=== PATIENT | male | born 1950 | race Caucasian/White ===

== ENCOUNTER → 2019-03-20 13:23 | Outpatient (BNVA) | payer MEDICARE, MEDICAID, SELFPAY | PROVIDERS: Family Provider Nurse Practitioner Family; PCP Nurse Practitioner Family; Visit Provider Specialist | DX: Z96.653 Presence of artificial knee joint, bilateral (principal); M17.0 Bilateral primary osteoarthritis of knee | CPT/HCPCS: 73560; 73565 ==

== ENCOUNTER → 2019-05-03 08:40 | Outpatient (BNVA) | payer MEDICARE, MEDICAID, SELFPAY | PROVIDERS: Family Provider Nurse Practitioner Family; PCP Nurse Practitioner Family; Visit Provider Nurse Practitioner Family | DX: E11.65 Type 2 diabetes mellitus with hyperglycemia (principal); M51.9 Unspecified thoracic, thoracolumbar and lumbosacral intervertebral disc disorder; G47.00 Insomnia, unspecified; E78.5 Hyperlipidemia, unspecified; I10 Essential (primary) hypertension; K21.9 Gastro-esophageal reflux disease without esophagitis | CPT/HCPCS: 80053; 80061; 82044; 83036; 85025 ==

== ENCOUNTER → 2019-08-08 16:04 | Outpatient (BNVA) | payer MEDICARE, MEDICAID, SELFPAY | PROVIDERS: Family Provider Nurse Practitioner Family; PCP Nurse Practitioner Family; Visit Provider Nurse Practitioner Family | DX: R50.9 Fever, unspecified (principal); L03.115 Cellulitis of right lower limb | CPT/HCPCS: 81000; 85025 ==

== ENCOUNTER 2019-09-06 10:33 | Outpatient (CLI) | payer MEDICARE, MEDICAID, SELFPAY ==
--- NOTE | 2019-09-06 10:40 | USCV_ITS ---
[place] Age: 69 Gender: M : 1950 Exam Date: 09/06/2019 10:36 Ordering Phys: Susanna Brock FLOOR NURSE FLOOR NURSE Technologist: Nahomy Martini Exam Location: [facility] [place] Indication: RT LEG REDNESS HISTORY: Cellulitis of rt lower leg PROCEDURES: Venous duplex imaging was performed in only the right lower extremity. The following venous structures were evaluated: common femoral vein, profunda vein, proximal portion of the greater saphenous vein, superficial femoral vein, and the popliteal vein. In addition, the posterior tibial and peroneal trunk were evaluated. Serial compression, augmentation maneuvers, and spectral Doppler flow evaluation were performed. FINDINGS: No DVT in any vessel examined CONCLUSIONS No evidence of right lower extremity DVT. Alejandro Mario MD (Electronically Signed) Final Date: 06 September 2019 13:35 S
== END 2019-09-06 10:34 | disposition home or self-care (01) ==
LOC: US 10:35
PROVIDERS: Family Provider Nurse Practitioner Family; PCP Nurse Practitioner Family; Visit Provider Nurse Practitioner Family
DX: L03.115 Cellulitis of right lower limb (principal)
CPT/HCPCS: 93971

== ENCOUNTER → 2019-10-08 08:00 | Outpatient (BNVA) | payer MEDICARE, MEDICAID, SELFPAY | PROVIDERS: Family Provider Nurse Practitioner Family; PCP Nurse Practitioner Family; Visit Provider Nurse Practitioner Family | DX: E11.65 Type 2 diabetes mellitus with hyperglycemia (principal); G47.00 Insomnia, unspecified; K21.9 Gastro-esophageal reflux disease without esophagitis; M51.9 Unspecified thoracic, thoracolumbar and lumbosacral intervertebral disc disorder; L03.115 Cellulitis of right lower limb; Z68.31 Body mass index [BMI] 31.0-31.9, adult | CPT/HCPCS: 80053; 80061; 83036; 85025 ==

== ENCOUNTER 2019-12-19 09:22 | Outpatient (CLI) | payer MEDICARE, MEDICAID, SELFPAY | END 2019-12-19 09:23 | disposition home or self-care (01) | LOC: WOUND 09:24 | PROVIDERS: Family Provider Nurse Practitioner Family; PCP Nurse Practitioner Family; Visit Provider Nurse Practitioner Family | DX: L84 Corns and callosities (principal) | CPT/HCPCS: G0463; L3260 ==

== ENCOUNTER 2019-12-19 12:37 | Outpatient (CLI) | payer MEDICARE, MEDICAID, SELFPAY ==
--- NOTE | 2019-12-19 12:45 | XR_ITS ---
WS: [id number] Exam: XR foot RT min 3V* [id number] Date/Time of Exam: 12/19/2019 12:46 PM Reason For Exam: PAIN REDNESS NONHEALING ULCER No fracture or dislocation. No sign of bone destruction. No soft tissue foreign bodies are seen. Mini mal degenerative changes. XR/XR foot RT min 3V* [id number] IMPRESSION: 1. No sign of the fracture or bone destruction.
== END 2019-12-19 12:38 | disposition home or self-care (01) ==
LOC: RADWPI 12:43
PROVIDERS: PCP Nurse Practitioner Family; Visit Provider Nurse Practitioner Family
DX: M79.671 Pain in right foot (principal); L53.9 Erythematous condition, unspecified; L97.519 Non-pressure chronic ulcer of other part of right foot with unspecified severity
CPT/HCPCS: 73630

== ENCOUNTER 2019-12-26 10:12 | Outpatient (CLI) | payer MEDICARE, MEDICAID, SELFPAY | END 2019-12-26 10:13 | disposition home or self-care (01) | LOC: WOUND 10:13 | PROVIDERS: PCP Nurse Practitioner Family; Visit Provider Nurse Practitioner Family | DX: Z09 Encounter for follow-up examination after completed treatment for conditions other than malignant neoplasm (principal) | CPT/HCPCS: 99212; G0463 ==

== ENCOUNTER → 2020-01-30 09:45 | Outpatient (BNVA) | payer MEDICARE, MEDICAID, SELFPAY | PROVIDERS: PCP Nurse Practitioner Family; Visit Provider Nurse Practitioner Family | DX: E11.65 Type 2 diabetes mellitus with hyperglycemia (principal) | CPT/HCPCS: 80053; 80061; 83036; 85025 ==

== ENCOUNTER → 2020-08-07 09:01 | Outpatient (BNVA) | payer MEDICARE, MEDICAID, SELFPAY | PROVIDERS: PCP Nurse Practitioner Family; Visit Provider Nurse Practitioner Family | DX: I10 Essential (primary) hypertension (principal); E11.65 Type 2 diabetes mellitus with hyperglycemia | CPT/HCPCS: 80053; 80061; 82043; 83036; 84443; 85025 ==

== ENCOUNTER → 2020-09-18 14:36 | Outpatient (BNVA) | payer MEDICARE, MEDICAID, SELFPAY | PROVIDERS: PCP Nurse Practitioner Family; Visit Provider Nurse Practitioner Family | DX: R30.0 Dysuria (principal); B37.42 Candidal balanitis; M51.9 Unspecified thoracic, thoracolumbar and lumbosacral intervertebral disc disorder | CPT/HCPCS: 81000 ==

== ENCOUNTER → 2020-10-06 16:39 | Outpatient (BNVA) | payer MEDICARE, MEDICAID, SELFPAY | PROVIDERS: PCP Nurse Practitioner Family; Visit Provider Nurse Practitioner Family | DX: R10.30 Lower abdominal pain, unspecified (principal); R35.0 Frequency of micturition; M51.9 Unspecified thoracic, thoracolumbar and lumbosacral intervertebral disc disorder | CPT/HCPCS: 81000; 82607; 85025; G0103 ==

== ENCOUNTER → 2020-11-16 09:20 | Outpatient (BNVA) | payer MEDICARE, MEDICAID, SELFPAY | PROVIDERS: PCP Nurse Practitioner Family; Visit Provider Internal Medicine | DX: D12.8 Benign neoplasm of rectum (principal); Z01.812 Encounter for preprocedural laboratory examination; Z12.11 Encounter for screening for malignant neoplasm of colon; Z20.822 Contact with and (suspected) exposure to COVID-19 | CPT/HCPCS: 87635 ==

== ENCOUNTER 2020-11-20 07:27 | Day surgery (SDC) | payer MEDICARE, MEDICAID, SELFPAY ==
[2020-11-16 14:28] VITALS: BMI 38.4
[2020-11-20 07:47] VITALS: BP 151/91; PULSE 90; RESP 18; TEMP 36.9; O2SAT 96
[2020-11-20] MEDS: sodium chloride 0.9% 1,000 ML 30 ML IV (08:00)
[2020-11-20 08:19] LABS: Glucose Point of Care 189 mg/dL (70-110)
--- NOTE | 2020-11-20 08:39 | ANES.PREANE2 ---
Pre-Anesthetic Assessment Pre-Anesthetic Assessment: Height/Weight: Height 1.75 m Weight 117.934 kg Temp Pulse Resp BP Pulse Ox 98.4 F 90 18 151/91 96 11/20/20 07:47 11/20/20 07:47 11/20/20 07:47 11/20/20 07:47 11/20/20 07:47 Preop Diagnosis: history of a polyp Proposed Procedure: Operation Date: 11/20/20 09:00 Proposed Procedures p Colonoscopy G0105 D12.8(Not Applicable) - Mp Garcia MD Familial anesthetic complications: none Was Beta Sammie taken within 24 hours: Yes Was Clonidine taken within 24 hours: N/A Last intake: Intake Last Liquid Date 11/19/20 Last Liquid Time 23:30 Last Solid Date 11/18/20 Last Solid Time 20:00 Social: Social History: No alcohol and No tobacco Exam: Pre-Anes Outpt Exam: alert, oriented x 3, clear to auscultation bilaterally and regular rate & rhythm Airway: Cervical ROM: WNL MP: 3 Dentition: False CV/HEM: CV/HEM: HTN Comments: US Echocardiogram 09/08/14 CONCLUSIONS 1-Normal left ventricular size, systolic function and wall thickness, with no regional wall motion abnormalities. Normal left ventricular wall thickness. Normal diastolic filling pattern. Left ventricular ejection fraction is estimated at 60 %. 2-No significant valve abnormalities. There is no pericardial effusion. 3-Mildly dilated aortic annulus. 4-There are no prior echocardiogram studies to compare. Vahe Knight MD (Electronically Signed) NM MIBI/MIBI Stress/Rest 09/08/14 CONCLUSION: 1. Myocardial perfusion imaging revealing a small area of persistent decreased tracer uptake in the mid and apical inferior and apical septal regions, suggestive of myocardial scarring versus attenuation artifacts. 2. Normal left ventricular ejection fraction of 53%. 3. Left ventricular wall motion analysis revealing mild hypokinesia of the left ventricular apex. 4. No significant coronary ischemia, based on the above findings. <Electronically signed by Gilbert Arreola MD, FACC, FACP, FSCAI> Request for Cardiac Stress Test 09/08/14 CONCLUSION: 1. Normal EKG response to LexiScan infusion 2. No LexiScan induced chest pain or cardiac arrhythmia 3. Normal blood pressure and heart rate response 4. Sestamibi/sestamibi perfusion scan pending; see separate report. Electronically Signed On 2014-09-08 21:05:23 CDT by Gilbert Arreola M.D. Metabolic: Metabolic: DM Musc/skel: Comments: Spinal cord stimulator Anesthetic Plan: ASA status: 3 Anesthesia: MAC Risk of > 500 ml blood loss (7ml/kg in children): No PFSH Anesthesia PFSH: Medical History (Updated 11/12/20 @ 10:11 by Mp Garcia MD) Carotid bruit Cervical radiculopathy Diabetes mellitus GERD (gastroesophageal reflux disease) HTN (hypertension) Insomnia Intervertebral disc disorder Macrocytosis Paresthesia Right thyroid nodule Sacroiliac joint disease Shortness of breath Sinus tachycardia Spinal cord stimulator status Varicose veins of both lower extremities Surgical History S/P carpal tunnel release S/P knee replacement Bilateral S/P lumbar fusion S/P shoulder surgery Status post amputation of toe Family History Other Cancer Diabetes Heart disease Social History Smoking and tobacco status: never smoked Second hand smoke exposure: Yes Alcohol intake: never Caregiver/support person: Yes Lives independently: Yes Household members: spouse Marital status: service: No Current occupational status: retired History of recent travel: No Current gender identity: Male Special kellee needs: No Data Anesthesia Other Labs: Laboratory Results - last 48 hr 11/20/20 08:01 POC Glucose 189 H Cardiac Studies: No Data to Display
--- NOTE | 2020-11-20 09:19 | W.PM.OPSFHP ---
Same Day Surgery H&P Indication for Procedure/HPI DATE OF PROCEDURE: November 20, 2020 CHIEF COMPLAINT/INDICATIONFOR SURGICAL PROCEDURE: History of rectal polyps PREOP DIAGNOSIS: history of a polyp PLANNED PROCEDRUE: Operation Date: 11/20/20 09:00 Proposed Procedures p Colonoscopy G0105 D12.8(Not Applicable) - Mp Garcia MD Medications/Allergies* Home Medications Medication Instructions Recorded Confirmed Type aspirin 81 mg tablet,delayed 81 mg PO DAILY tab 03/07/19 11/20/20 History release cetirizine 10 mg capsule 10 mg PO DAILY cap 03/07/19 11/20/20 History hydrocodone 7.5 mg-acetaminophen 1 tab PO TID PRN 03/07/19 11/20/20 History 325 mg tablet Allergies/Adverse Reactions Allergy/AdvReac Type Severity Reaction Status Date / Time oxycodone Allergy Unknown Unknown Verified 11/20/20 07:52 topiramate [From Topamax] Allergy Unknown Verified 11/20/20 07:52 Pertinent History/Comorbid Conditions* Medical History (Updated 11/12/20 @ 10:11 by Mp Garcia MD) Carotid bruit Cervical radiculopathy Diabetes mellitus GERD (gastroesophageal reflux disease) HTN (hypertension) Insomnia Intervertebral disc disorder Macrocytosis Paresthesia Right thyroid nodule Sacroiliac joint disease Shortness of breath Sinus tachycardia Spinal cord stimulator status Varicose veins of both lower extremities Surgical History (Updated 10/08/19 @ 12:36 by TRUNG Todd) S/P carpal tunnel release S/P knee replacement Bilateral S/P lumbar fusion S/P shoulder surgery Status post amputation of toe Family History (Updated 03/07/19 @ 11:47 by Precious Ramirez RN) Diabetes Heart disease Cancer Social History Smoking and tobacco status: never smoked Second hand smoke exposure: Yes Alcohol intake: never Caregiver/support person: Yes Lives independently: Yes Household members: spouse Marital status: service: No Current occupational status: retired History of recent travel: No Current gender identity: Male Special kellee needs: No Pertinent Exam Findings alert, oriented x 3, clear to auscultation bilaterally, regular rate & rhythm, operative site marked and procedure specific exam findings Recommendations Surgery/Procedure today Coding Level of Care Code Acute Consulting Utility Forester for Tal Vasquez
[2020-11-20 09:39] VITALS: BP 109/73; PULSE 84; RESP 16; TEMP 36.4; O2SAT 91
[2020-11-20 09:53] VITALS: BP 109/69; PULSE 80; RESP 18; O2SAT 96
--- NOTE | 2020-11-20 12:23 | ANE.PACU2 ---
Inpatient post-anesthesia follow up: Airway intact: Yes Vital signs: Temperature 97.5 F Pulse Rate 80 Respiratory Rate 18 Blood Pressure 109/69 Pulse Oximetry 96 Oxygen Delivery Me thod Room Air Oxygen Flow Rate Fraction of Inspir ed Oxygen Hydration adequate: Yes Nausea and vomiting: No Pain level: 1 Mental status: Baseline
== END 2020-11-20 10:02 | disposition home or self-care (01) ==
PROVIDERS: PCP Nurse Practitioner Family; Visit Provider Internal Medicine
PROC: 0DJD8ZZ Inspection of Lower Intestinal Tract, Via Natural or Artificial Opening Endoscopic (ICD-10-PCS; CPT 45378; principal; 2020-11-20 09:00)
DX: Z12.11 Encounter for screening for malignant neoplasm of colon (principal); Z86.010 Personal history of colon polyps; Z79.82 Long term (current) use of aspirin; E11.9 Type 2 diabetes mellitus without complications; K21.9 Gastro-esophageal reflux disease without esophagitis; I10 Essential (primary) hypertension; Z82.49 Family history of ischemic heart disease and other diseases of the circulatory system; Z83.3 Family history of diabetes mellitus
CPT/HCPCS: 36416; 45378; 82962; 96360; 96361; J2704; J7030

== ENCOUNTER 2020-12-05 19:32 | Inpatient (IN) | payer MEDICARE, MEDICAID, SELFPAY ==
[2020-12-05 19:49] VITALS: BP 126/80; PULSE 128; RESP 18; TEMP 38.2; O2SAT 94; BMI 38.0
--- NOTE | 2020-12-05 20:00 | USR_ITS ---
PROCEDURE INFORMATION: Exam: US Duplex Right Lower Extremity Veins, Limited Exam date and time: 12/05/2020 8:00 PM Age: 70 years old Clinical indication: Pain; Leg, lower; Right; Additional info: Dvt TECHNIQUE: Imaging protocol: Real-time Duplex ultrasound of the Right Lower Extremity with 2-D gutierrez scale, color Doppler flow and spectral waveform analysis with image documentation. Limited exam was focused on the right lower extremity veins. COMPARISON: CR XR foot RT min 3V* [id number] 12/19/2019 12:54 PM FINDINGS: Right deep veins: Unremarkable. The common femoral, femoral, proximal profunda femoral and popliteal veins are patent without thrombus. Normal Doppler waveforms. Normal compressibility and/or augmentation response. Right superficial veins: Unremarkable. Saphenofemoral junction is patent without thrombus. Soft tissues: Unremarkable. US/[place] [id number] IMPRESSION: No evidence of deep vein thrombosis. Radiation Dose CTDIVOL = (mGy): DLP = (mGy-cm)
--- NOTE | 2020-12-05 20:06 | ED_ITS ---
HPI - Extremity Problem General: Chief complaint: Extremity Injury, Lower Stated complaint: Cellulitus\ High Fever\Rash on R Leg\Achey Time Seen by Provider: 12/05/20 19:59 History of Present Illness: HPI Narrative: 70-year-old male history of diabetes presents due to right calf pain and swelling. This started 2 days ago. Denies any chest pain shortness of breath. Does report low-grade fever at home. Denies any focal numbness weakness or tingling. States he has had many similar episode of cellulitis in the past. Review of Systems Narrative: - CONSTITUTIONAL: Denies weight loss, fever and chills. - HEENT: Denies changes in vision and hearing. - RESPIRATORY: Denies SOB and cough. - CV: Denies palpitations and CP. - GI: Denies abdominal pain, nausea, vomiting and diarrhea. - : Denies dysuria and urinary frequency. - MSK: As above - SKIN: As above - NEUROLOGICAL: Denies headache, weakness, numbness and syncope. - PSYCHIATRIC: Denies suicidal ideation PFS ED PFSH: Medical History (Updated 11/12/20 @ 10:11 by Mp Garcia MD) Carotid bruit Cervical radiculopathy Diabetes mellitus GERD (gastroesophageal reflux disease) HTN (hypertension) Insomnia Intervertebral disc disorder Macrocytosis Paresthesia Right thyroid nodule Sacroiliac joint disease Shortness of breath Sinus tachycardia Spinal cord stimulator status Varicose veins of both lower extremities Surgical History S/P carpal tunnel release S/P knee replacement Bilateral S/P lumbar fusion S/P shoulder surgery Status post amputation of toe Family History Other Cancer Diabetes Heart disease Social History Smoking and tobacco status: never smoked Second hand smoke exposure: Yes Alcohol intake: never Caregiver/support person: Yes Lives independently: Yes Household members: spouse Marital status: service: No Current occupational status: retired History of recent travel: No Current gender identity: Male Special kellee needs: No Physical Exam Narrative: EXAM NARRATIVE: - GENERAL: Alert and oriented x 3. No acute distress. Well-nourished. - EYES: EOMI. Anicteric. - HENT: Atraumatic, no C-spine tenderness. Moist mucous membranes. No scleral icterus. No cervical lymphadenopathy. - LUNGS: Clear to auscultation bilaterally. No accessory muscle use. Equal lung sounds bilaterally. No respiratory distress. - CARDIOVASCULAR: Regular rate and rhythm. No murmur. No JVD. - ABDOMEN: Soft, non-tender and non-distended. Negative CVA tenderness bilaterally, no rebound or guarding, negative Inman sign. No palpable masses. - EXTREMITIES: There is an area of erythema edema and tenderness to the right calf. Extremities otherwise neurovascularly intact. Compartments are soft. No crepitus or signs of free gas. - SKIN: Focal rash to the right calf. - NEUROLOGIC: No meningismus or focal neurological deficits. CN II-XII grossly intact. - PSYCHIATRIC: Cooperative. Appropriate mood and affect. Course Vital Signs: Vital signs: Vital Signs Temperature 100.7 F H 12/05/20 19:49 Pulse Rate 128 H 12/05/20 19:49 Respiratory Rate 18 12/05/20 19:49 Blood Pressure 126/80 12/05/20 19:49 Pulse Oximetry 94 12/05/20 19:49 MDM - Extremity (Nontraumatic) MDM Narrative: Medical decision making narrative: 70-year-old male history of diabetes presents with right calf pain and swelling. On exam does have erythema and edema. No signs of crepitus free air or necrotizing fasciitis. Ultrasound does not reveal signs of DVT. However he is tachycardic and febrile. Improved Tylenol and fluids. Otherwise he is hemodynamically stable and nontoxic- appearing. Blood cultures drawn. Lactic acid is currently pending. There is white count elevation of 13. Remainder of lab work is otherwise unremarkable. IV Rocephin provided. Concern for cellulitis. Remainder of lab work and imaging reviewed. Discussed with hospitalist and they agreed patient would benefit from admission. Patient admitted in stable condition. Further evaluation management per hospitalist team. Lab Data: Labs: Lab Results 12/05/20 12/05/20 12/05/20 21:10 21:10 21:10 WBC 13.2 10^3/uL H 10 ^3/uL (4.0-10.0) RBC 4.92 10^6/uL 10^6 /uL (4.1-5.3) Hgb 15.1 g/dL g/dL (11.7-16.6) Hct 43.7 % % (42.0-52.0) MCV 88.8 fl fl (80-94) MCH 30.7 pg pg (28.0-34.0) MCHC 34.6 g/dL g/dL (30.0-36.0) RDW 13.6 % % (12.1-15.1) Plt Count 205 10^3/cmm 10^3 /cmm (130-400) MPV 10.2 fL fL (7.4-10.4) Neut % (Auto) 84.5 % % Lymph % (Auto) 9.3 % % White % (Auto) 5.0 % % Eos % (Auto) 0.3 % % Baso % (Auto) 0.5 % % Neut # (Auto) 11.20 10^3/uL H 1 0^3/uL (1.8-7.7) Lymph # (Auto) 1.2 10^3/uL 10^3/ uL (0.8-4.8) White # (Auto) 0.7 10^3/uL 10^3/ uL (0.2-0.9) Eos # (Auto) 0.0 10^3/uL 10^3/ uL (0.0-0.8) Baso # (Auto) 0.1 10^3/uL 10^3/ uL (0.0-0.1) Nucleated RBC % (a uto) 0 % % Nucleated RBCs # 0.0 /100WBC /100W BC Sodium 134 mmol/L L mmol /L (136-145) Potassium 4.1 mmol/L mmol/L (3.5-5.1) Chloride 97 mmol/L L mmol/ L (98-107) Carbon Dioxide 24 mmol/L mmol/L (22-29) Anion Gap 17.1 (5-19) BUN 14 mg/dL mg/dL (8-23) Creatinine 0.8 mg/dL mg/dL (0.7-1.2) GFR Calculation Not Reportable Glucose 165 mg/dL H mg/dL (65-115) Calculated Osmolal ity 282 mOsm/kg L mOs m/kg (285-295) Lactate 1.7 mmol/L mmol/L (0.5-2.2) Calcium 9.7 mg/dL mg/dL (8.5-10.5) Total Bilirubin 0.6 mg/dL mg/dL (0.15-1.2) AST 34 U/L U/L (0-40) ALT 55 U/L H U/L (0-41) Alkaline Phosphata se 101 IU/L IU/L (40-130) Total Protein 7.2 g/dL g/dL (6.6-8.7) Albumin 4.2 g/dL g/dL (3.5-5.2) Globulin 3.0 g/dL g/dL (1.3-4.6) Discharge Plan Discharge Prescriptions: No Action lidocaine (PF) 20 mg/mL (2 %) solution 20 mg IM ONCE Qty: 2.1 RF: 0 baclofen 20 mg tablet See Rx Instructions .ROUTE .COMPLEX Qty: 90 RF: 2 clotrimazole [Antifungal (clotrimazole)] 1 % cream 1 applic TOPICAL BID Qty: 15 RF: 0 hydrocodone-acetaminophen 7.5-325 mg tablet 1 tab PO TID PRN (Reason: Pain) RF: 0 cetirizine 10 mg capsule 10 mg PO DAILY RF: 0 aspirin [Adult Low Dose Aspirin] 81 mg tablet,delayed release (DR/EC) 81 mg PO DAILY RF: 0 fluticasone propionate 50 mcg/actuation spray,suspension See Rx Instructions .ROUTE BID Qty: 16 RF: 12 Farxiga 10 mg tablet See Rx Instructions .ROUTE .COMPLEX Qty: 30 RF: 5 tamsulosin 0.4 mg capsule 0.4 mg PO DAILY Qty: 30 RF: 5 metoprolol succinate 25 mg tablet extended release 24 hr 12.5 mg PO DAILY Qty: 45 RF: 3 Victoza 3-Sincere 0.6 mg/0.1 mL (18 mg/3 mL) pen injector See Rx Instructions .ROUTE .COMPLEX Qty: 9 RF: 5 duloxetine 60 mg capsule,delayed release(DR/EC) See Rx Instructions .ROUTE .COMPLEX Qty: 60 RF: 4 Levemir FlexTouch U-100 Insuln 100 unit/mL (3 mL) insulin pen See Rx Instructions .ROUTE .COMPLEX Qty: 15 RF: 2 gabapentin 600 mg tablet See Rx Instructions .ROUTE .COMPLEX Qty: 120 RF: 4 famotidine 20 mg tablet See Rx Instructions .ROUTE .COMPLEX Qty: 30 RF: 5 nortriptyline 25 mg capsule See Rx Instructions .ROUTE .COMPLEX Qty: 60 RF: 2 diclofenac sodium 50 mg tablet,delayed release (DR/EC) See Rx Instructions .ROUTE .COMPLEX Qty: 60 RF: 5 metformin 500 mg tablet extended release 24 hr See Rx Instructions .ROUTE .COMPLEX Qty: 120 RF: 2 Coding Level of Care Code ED Corn Sheller Operator for Tal Vasquez
[2020-12-05 21:18] LABS: Basophils # 0.1 10^3/uL (0.0-0.1); Basophils % 0.5 %; Eosinophils % 0.3 %; Hematocrit 43.7 % (42.0-52.0); Hemoglobin 15.1 g/dL (11.7-16.6); Lymphocytes # 1.2 10^3/uL (0.8-4.8); Lymphocytes % 9.3 %; Mean Corpuscular HGB Conc 34.6 g/dL (30.0-36.0); Mean Corpuscular Hemoglobin 30.7 pg (28.0-34.0); Mean Corpuscular Volume 88.8 fl (80-94); Mean Platelet Volume 10.2 fL (7.4-10.4); Monocytes # 0.7 10^3/uL (0.2-0.9); Neutrophils % 84.5 %; Nucleated Red Blood Cells % 0 %; Platelet Count 205 10^3/cmm (130-400); Red Blood Count 4.92 10^6/uL (4.1-5.3); Red Cell Distribution Width 13.6 % (12.1-15.1); White Blood Count 13.2 10^3/uL (4.0-10.0)
[2020-12-05] MEDS: acetaminophen 500 mg Tablet PO (21:23)
[2020-12-05] MEDS: sodium chloride 0.9% 1,000 ML 999 ML IV (21:23)
[2020-12-05] MEDS: cefTRIAXone 2,000 MG in sodium chloride 0.9% (plus) 50 ML 100 MG IV (21:23)
[2020-12-05 21:25] VITALS: BP 123/96; PULSE 84; RESP 20; O2SAT 96
[2020-12-05 21:30] VITALS: BP 117/68; PULSE 103; RESP 17; TEMP 37.4; O2SAT 93; BMI 39.7
[2020-12-05 21:39] LABS: Lactate (Lactic Acid level) 1.7 mmol/L (0.5-2.2)
[2020-12-05 21:40] LABS: Alanine Aminotransferase 55 U/L (0-41); Albumin Level 4.2 g/dL (3.5-5.2); Alkaline Phosphatase 101 IU/L (40-130); Anion Gap 17.1 (5-19); Aspartate Amino Transferase 34 U/L (0-40); Blood Urea Nitrogen 14 mg/dL (8-23); Calcium 9.7 mg/dL (8.5-10.5); Carbon Dioxide 24 mmol/L (22-29); Chloride 97 mmol/L (98-107); Glucose 165 mg/dL (65-115); Osmolality Calculated 282 mOsm/kg (285-295); Potassium 4.1 mmol/L (3.5-5.1); Sodium 134 mmol/L (136-145); Total Bilirubin 0.6 mg/dL (0.15-1.2); Total Protein 7.2 g/dL (6.6-8.7)
--- NOTE | 2020-12-05 23:28 | P.HP_ITS ---
Providers/Chief Complaint Admitting Physician: Alicja Tripp Chief Complaint: Cellulitus\ High Fever\Rash on R Leg\Achey History of Present Illness 70 y/o with past medical history hypertension, diabetes mellitus, gastroesophageal reflux disease, spinal cord stimulator, insomnia, who presented to ED with right lower extremity cellulitis. Patient was tx for this 2-month prior at which time this improved after tx with antibiotics. Recurred a few days prior. Associated with subjective fever and chills. Laboratory workup on arrival showed a WBC of 13.2, hemoglobin 15.1, hematocrit of 43.7 and platelet count 205. Sodium 134, potassium 4.1, chloride 97, bicarb 24, BUN 14 and creatinine of 0.8. Glucose of 165, lactic acid of 1.7. AST of 34, ALT of 55 and alkaline phosphatase of 101. Venous duplex of right lower extremity did not show any evidence of acute DVT. Denies chest pain or shortness of breath. Denied abdominal pain, diarrhea, or constipation. Patient was given Rocephin 2 g IV x1 admitted to the hospital. Review of Systems General: Reports: 10 or more systems reviewed and unremarkable except in HPI and below Medications/Allergies Home Medications Medication Instructions Recorded Confirmed Last Taken Type aspirin 81 mg tablet,delayed 81 mg PO DAILY tab 03/07/19 12/06/20 12/06/20 History release cetirizine 10 mg capsule 10 mg PO DAILY cap 03/07/19 12/06/20 12/05/20 History hydrocodone 7.5 mg-acetaminophen 1 tab PO TID PRN 03/07/19 12/06/20 1 Day Ago History 325 mg tablet ~11/19/20 metoprolol succinate 25 mg 12.5 mg PO DAILY #45 tab 05/06/20 12/06/20 12/05/20 Rx tablet,extended release 24 hr liraglutide 0.6 mg/0.1 mL (18 mg/3 See Rx Instructions .ROUTE 08/04/20 12/06/20 1 Day Ago Rx mL) subcutaneous pen injector .COMPLEX #9 ml ~11/19/20 clotrimazole 1 % topical cream 1 applic TOPICAL BID #15 gm 09/18/20 11/16/20 Unknown Rx famotidine 20 mg tablet See Rx Instructions .ROUTE 09/21/20 11/16/20 Unknown Rx .COMPLEX #30 tab diclofenac sodium 50 mg See Rx Instructions .ROUTE 10/05/20 12/06/20 12/05/20 Rx tablet,delayed release .COMPLEX #60 tab fluticasone propionate 50 See Rx Instructions .ROUTE BID #16 10/06/20 12/06/20 Unknown Rx mcg/actuation nasal g spray,suspension dapagliflozin 10 mg tablet See Rx Instructions .ROUTE 10/19/20 12/06/20 12/05/20 Rx .COMPLEX #30 tab tamsulosin 0.4 mg capsule 0.4 mg PO DAILY #30 cap 10/19/20 11/20/20 1 Day Ago Rx ~11/19/20 Levemir FlexTouch U-100 Insuln 15 unit SUBCUT BEDTIME 12/06/20 12/06/20 12/05/20 History baclofen 10 mg PO TID 12/06/20 12/06/20 12/05/20 History clindamycin HCl 12/06/20 12/06/20 Unknown History duloxetine 60 mg PO BID 12/06/20 12/06/20 12/05/20 History gabapentin 600 mg PO QID 12/06/20 12/06/20 12/05/20 History metformin 1,000 mg PO BID 12/06/20 12/06/20 12/05/20 History nortriptyline 25 mg PO BID 12/06/20 12/06/20 12/05/20 History Allergies Allergy/AdvReac Type Severity Reaction Status Date / Time oxycodone Allergy Unknown Unknown Verified 11/20/20 07:52 topiramate [From Topamax] Allergy Unknown Verified 11/20/20 07:52 PFSH Acute PFSH: Medical History (Updated 11/12/20 @ 10:11 by Mp Garcia MD) Carotid bruit Cervical radiculopathy Diabetes mellitus GERD (gastroesophageal reflux disease) HTN (hypertension) Insomnia Intervertebral disc disorder Macrocytosis Paresthesia Right thyroid nodule Sacroiliac joint disease Shortness of breath Sinus tachycardia Spinal cord stimulator status Varicose veins of both lower extremities Surgical History S/P carpal tunnel release S/P knee replacement Bilateral S/P lumbar fusion S/P shoulder surgery Status post amputation of toe Family History Other Cancer Diabetes Heart disease Social History Smoking and tobacco status: never smoked Second hand smoke exposure: Yes Alcohol intake: never Caregiver/support person: Yes Lives independently: Yes Household members: spouse Marital status: service: No Current occupational status: retired History of recent travel: No Current gender identity: Male Special kellee needs: No Vitals/I&O/Wt Last Vital Signs Temp 99.4 F 12/06/20 00:40 Pulse 103 H 12/06/20 00:40 Resp 17 12/06/20 00:40 BP 117/68 12/06/20 00:40 Pulse Ox 93 12/06/20 00:40 12/05/20 12/05/20 12/06/20 14:59 22:59 06:59 Intake Total 1050 / 1050 Balance 1050 / 1050 Weight last 48 hrs Weight 125.781 kg Weight 125.781 kg Weight 120.202 kg Physical Exam Narrative: EXAM NARRATIVE: General: Alert, Awake, NAD HEENT: Grossly unremarkable CVS: RRR Chest; Non labored respiration Abd; Soft Ext: Right Lower extremity erythema Data : 12/05/20 21:10 12/05/20 21:10 Micro: Microbiology 12/06/20 01:20 Blood Culture - Preliminary Blood SPECIMEN COLLECTED 12/06/20 01:25 Blood Culture - Preliminary Blood SPECIMEN COLLECTED A&P Assessment and plan (1) Cellulitis of right lower extremity: Status: Resolved Additional A&P Information Right lower extremity cellulitis Continue ceftriaxone 2 g IV Q 24 Follow-up on blood cultures Keep Elevated Venous duplex ? no dvt Additional Medical Problems Diabetes Mellitus Neuropathy Hypertension Depression GERD BPH DVT ppx Lovenox 40 mg SQ daily Attestations Medical Necessity Statement*: Anticipate over 2 midnights stay in hospital for evaluation and treatment Time Spent in Patient Care: Greater than 35 minutes (>than 50% of time spent in counselling and/or direct pt care on unit) . Coding Level of Care Code Acute Poultry Hatchery Supervisor for Tal Vasquez Diagnoses Cellulitis of right lower extremity L03.115
[2020-12-05 23:29] VITALS: BP 131/78; O2SAT 95
--- NOTE | 2020-12-06 00:38 | PC.NURSE ---
i reported high pulse 103 to nurse
[2020-12-06 00:40] VITALS: BP 117/68; PULSE 103; RESP 17; TEMP 37.4; O2SAT 93
--- NOTE | 2020-12-06 00:41 | PC.NURSE ---
i reported high pulse 103 to nurse
[2020-12-06 00:42] VITALS: BMI 39.7
[2020-12-06 04:00] VITALS: BP 128/72; PULSE 89; RESP 18; TEMP 36.7; O2SAT 90
[2020-12-06] MEDS: enoxaparin 40 mg/0.4 mL Syringe SUBCUT (04:55)
[2020-12-06] MEDS: sodium chloride 0.9% 1,000 ML 75 ML IV (04:56)
[2020-12-06 07:33] VITALS: BP 143/83; PULSE 90; RESP 16; TEMP 36.6; O2SAT 93
[2020-12-06] MEDS: baclofen 10 mg Tablet PO (08:02)
[2020-12-06] MEDS: duloxetine 60 mg Capsule PO (08:02)
[2020-12-06] MEDS: nortriptyline 25 mg Capsule PO (08:02)
[2020-12-06] MEDS: aspirin 81 mg EC Tablet PO (08:02)
[2020-12-06] MEDS: pantoprazole DR 40 mg Tablet PO (08:02)
--- NOTE | 2020-12-06 08:18 | PM.PN ---
Vitals/I&O/Wt Last Vital Signs Temp 97.8 F 12/06/20 07:33 Pulse 90 12/06/20 07:33 Resp 16 12/06/20 07:33 BP 143/83 12/06/20 07:33 Pulse Ox 93 12/06/20 07:33 12/05/20 12/06/20 12/06/20 22:59 06:59 14:59 Intake Total 1250 / 1250 Output Total 180 / 180 Balance 1070 / 1070 Weight last 48 hrs Weight 125.781 kg Weight 125.781 kg Weight 120.202 kg Data : 12/05/20 21:10 12/05/20 21:10 Micro: Microbiology 12/06/20 01:20 Blood Culture - Preliminary Blood SPECIMEN COLLECTED 12/06/20 01:25 Blood Culture - Preliminary Blood SPECIMEN COLLECTED Coding Level of Care Code Acute Director Dietetics Department for Tal Vasquez
--- NOTE | 2020-12-06 10:47 | PC.CHAP ---
Pastoral Care Encounter/Spiritual Assessment Type of Contact [] Declined heating and air conditioning mechanic visit [] Patient/Family/Request visit [] Outpatient visit [] Follow-up visit [] Physician referral [] Code/Alert [X] Routine visit [] Staff referral [] Actively dying [] Patient sleeping [] Family support [] [] Out of room [] Palliative care [] [] Receiving care in room [] Pre-surgical visit [] Trauma [] Long length of stay [] ICU visit [] Other: Relational/Emotional Strength [X] Patient feels connected with others/family/visitors/staff [] Distress [] Loneliness/isolation [] Abandonment Spirituality of Patient [] Person of Daniela [] Attends Latter Day of their Daniela [] Believes in Prayer [] Reads Bible or Zoroastrianism materials [] There are Spiritual issues to be addressed Parker Interventions [] Prayer [X] Active listening [X] Non-anxious presence [] Spiritual/emotional support [] Crisis/trauma care [] Spiritual counseling [] Bereavement support [] Provided bereavement packet [] Provided Bible/devotional materials [] Provided toy/stuffed animal, coloring book to patient or family member [] Provided Communion [] Anointing/[place] [] Salvation [X] Completed spiritual assessment [] Other: Impact on Illness or Injury [] Angry [] Fearful [] Anxious [] Often cries [] Exhaustion [] Unable to work [] Unable to attend islam [] Unable to walk/stand [] Unable to read [] Unable to drive [] Unable to eat/drink [] Unable to sleep [] Unable to be with family [] Patient intubated [] Other: Summary: Pt in good humor sitting on edge of his bed. Pt stated that he is going home today and that he just needed the antibiotics. He reports good support system. Pt declined any offerings for prayer or reading material. Time spent with patient: 5 mins
[2020-12-06 11:28] VITALS: BP 128/71; PULSE 92; RESP 18; TEMP 36.7; O2SAT 96
--- NOTE | 2020-12-06 12:54 | PM.DCS ---
Discharge Providers Date of Admission: 12/05/20 21:54 Date of Discharge: December 06, 2020 Attending Provider at Admission: Alicja Tripp Attending Provider at Discharge: Arina Vergara MD Diagnoses at Discharge Discharge Diagnosis (1) Cellulitis of right lower extremity: Status: Resolved Reason for Visit Reason for Visit: Cellulitus\ High Fever\Rash on R Leg\[place] Hospital Course Hospital Course 70 y/o with past medical history hypertension, diabetes mellitus, gastroesophageal reflux disease, spinal cord stimulator, insomnia, who presented to ED with right lower extremity cellulitis. Patient was tx for this 2-month prior at which time this improved after tx with antibiotics. Recurred a few days prior. Associated with subjective fever and chills. Laboratory workup on arrival showed a WBC of 13.2, hemoglobin 15.1, hematocrit of 43.7 and platelet count 205. Sodium 134, potassium 4.1, chloride 97, bicarb 24, BUN 14 and creatinine of 0.8. Glucose of 165, lactic acid of 1.7. AST of 34, ALT of 55 and alkaline phosphatase of 101. Venous duplex of right lower extremity did not show any evidence of acute DVT. Denies chest pain or shortness of breath. Denied abdominal pain, diarrhea, or constipation. Patient was given Rocephin 2 g IV x1 admitted to the hospital. Hospital course Patient was admitted for right lower extremity cellulitis. The redness has decreased compared to admission. He did get 1 dose of ceftriaxone 2 g IV. Blood cultures have been negative preliminary. Lower extremity Doppler rule out DVT. Patient states he has had this before and outpatient antibiotics were okay for him. He has requested me repeatedly this morning that he would like to go home. There is no drainage noted and it is a nonpurulent cellulitis of right lower extremity. Patient does have a small peeling callus on the sole of his foot which he states could be contributing to his cellulitis. The foot however is not erythematous or swollen. He has been afebrile since hospital admission. He would like to go home and follow-up with his primary care doctor. His vitals are stable. I will discharge him on Augmentin and doxycycline for 7 days. Physical Exam Narrative: EXAM NARRATIVE: General: Alert, Awake, NAD HEENT: Grossly unremarkable, normocephalic, atraumatic CVS: RRR, no murmurs no rubs no gallops Chest; Non labored respiration, clear to auscultation bilaterally, no wheezes no rhonchi. Abd; Soft, nontender, nondistended Ext: Right Lower extremity erythema which patient states has improved since admission. No edema no cyanosis noted. Small peeling callus noted at sole of right foot by big toe but does not appear to be infected at this time. Discharge Data Data Completed and Pending: Completed Studies During Hospitalization Category [place] [id number] Urgent Ultrasound 12/05/20 20:00 Completed Pending at discharge Category Date Time Status Blood Culture Sta t Lab 12/05/20 20:05 Results Complete Blood Co unt w/Auto AM LABS Lab 12/07/20 04:00 Ordered Comprehensive Met abolic Panel AM LA BS Lab 12/07/20 04:00 Ordered Procalcitonin AM LABS Lab 12/07/20 04:00 Ordered Labs from last 24 hours 12/05/20 12/05/20 12/05/20 21:10 21:10 21:10 WBC 13.2 H RBC 4.92 Hgb 15.1 Hct 43.7 MCV 88.8 MCH 30.7 MCHC 34.6 RDW 13.6 Plt Count 205 MPV 10.2 Neut % (Auto) 84.5 Lymph % (Auto) 9.3 [place] % (Auto) 5.0 Eos % (Auto) 0.3 Baso % (Auto) 0.5 Neut # (Auto) 11.20 H Lymph # (Auto) 1.2 [place] # (Auto) 0.7 Eos # (Auto) 0.0 Baso # (Auto) 0.1 Nucleated RBC % (a uto) 0 Nucleated RBCs # 0.0 Sodium 134 L Potassium 4.1 Chloride 97 L Carbon Dioxide 24 Anion Gap 17.1 BUN 14 Creatinine 0.8 GFR Calculation Not Reportable Glucose 165 H Calculated Osmolal ity 282 L Lactate 1.7 Calcium 9.7 Total Bilirubin 0.6 AST 34 ALT 55 H Alkaline Phosphata se 101 Total Protein 7.2 Albumin 4.2 Globulin 3.0 Vitals: Last Vital Signs Temp 98.1 F 12/06/20 11:28 Pulse 92 12/06/20 11:28 Resp 18 12/06/20 11:28 BP 128/71 12/06/20 11:28 Pulse Ox 96 12/06/20 11:28 Discharge Plan Discharge Patient Disposition: Home Condition: Stable Prescriptions: New Augmentin 875-125 mg tablet 1 tab PO BID 7 Days Qty: 14 RF: 0 doxycycline hyclate 100 mg capsule 100 mg PO BID 7 Days Qty: 14 RF: 0 Continued clotrimazole [Antifungal (clotrimazole)] 1 % cream 1 applic TOPICAL BID Qty: 15 RF: 0 hydrocodone-acetaminophen 7.5-325 mg tablet 1 tab PO TID PRN (Reason: Pain) RF: 0 cetirizine 10 mg capsule 10 mg PO DAILY RF: 0 aspirin [Adult Low Dose Aspirin] 81 mg tablet,delayed release (DR/EC) 81 mg PO DAILY RF: 0 fluticasone propionate 50 mcg/actuation spray,suspension See Rx Instructions .ROUTE BID Qty: 16 RF: 12 Farxiga 10 mg tablet See Rx Instructions .ROUTE .COMPLEX Qty: 30 RF: 5 metoprolol succinate 25 mg tablet extended release 24 hr 12.5 mg PO DAILY Qty: 45 RF: 3 Victoza 3-Sincere 0.6 mg/0.1 mL (18 mg/3 mL) pen injector See Rx Instructions .ROUTE .COMPLEX Qty: 9 RF: 5 diclofenac sodium 50 mg tablet,delayed release (DR/EC) See Rx Instructions .ROUTE .COMPLEX Qty: 60 RF: 5 gabapentin 600 mg tablet 600 mg PO QID RF: 0 baclofen 20 mg tablet 10 mg PO TID RF: 0 nortriptyline 25 mg capsule 25 mg PO BID RF: 0 metformin 500 mg tablet extended release 24 hr 1,000 mg PO BID RF: 0 duloxetine 60 mg capsule,delayed release(DR/EC) 60 mg PO BID RF: 0 Levemir FlexTouch U-100 Insuln 100 unit/mL (3 mL) insulin pen 15 unit SUBCUT BEDTIME RF: 0 famotidine 20 mg tablet 20 mg PO DAILY RF: 0 tamsulosin 0.4 mg capsule 0.4 mg PO BID MDD see pharmacy comment RF: 0 Discharge Orders: Discharge Order (Routine); Ordered 12/06/20 Ordered By: Arina Vergara Referrals: Susanna Brock FNP [Nurse Practitioner] - 7-10 days (Please call and schedule an appointment with Susanna Brock in the next week. ) Discharge Diet: Cardiac and Diabetic Discharge Activity: Resume usual activity Patient Instructions: Opioid Safety Discharge Attestations Time Spent in Discharge Care*: less than 30 min Quality Metrics Clinical Quality Measures During this hospital stay, did patient experience: None Coding Level of Care Code Acute Chg FW DC note Diagnoses Cellulitis of right lower extremity L03.115
--- NOTE | 2020-12-06 14:13 | PC.NURSE ---
DISCHARGE INSTRUCTIONS DISCHARGE INSTRUCTIONS WELL HARD SCRIPT GIVEN PER THIS NURSE - PT VERBALIZES UNDERSTANDING
[2020-12-06 14:27] VITALS: BP 128/71; PULSE 92; RESP 18; TEMP 36.7; O2SAT 96
== END 2020-12-06 14:28 | disposition home or self-care (01) | DRG 603 ==
LOC: ER 19:59 → MEDSURG 22:10
PROVIDERS: Admitting Provider Hospitalist; Emergency Provider Emergency Medicine; Visit Provider Internal Medicine
DX: L03.115 Cellulitis of right lower limb (principal); E11.42 Type 2 diabetes mellitus with diabetic polyneuropathy; K21.9 Gastro-esophageal reflux disease without esophagitis; I10 Essential (primary) hypertension; G47.00 Insomnia, unspecified; M54.12 Radiculopathy, cervical region; Z96.82 Presence of neurostimulator; Z96.653 Presence of artificial knee joint, bilateral; Z98.1 Arthrodesis status; Z77.22 Contact with and (suspected) exposure to environmental tobacco smoke (acute) (chronic); N40.0 Benign prostatic hyperplasia without lower urinary tract symptoms; Z79.891 Long term (current) use of opiate analgesic; Z79.82 Long term (current) use of aspirin; Z79.4 Long term (current) use of insulin
CPT/HCPCS: 80053; 83605; 85025; 87040; 93971; 96365; 96372; 99285; J0696; J1650; J7030

== ENCOUNTER → 2021-02-05 10:44 | Outpatient (BNVA) | payer MEDICARE, MEDICAID, SELFPAY | PROVIDERS: PCP Nurse Practitioner Family; Visit Provider Nurse Practitioner Family | DX: E11.65 Type 2 diabetes mellitus with hyperglycemia (principal); I10 Essential (primary) hypertension | CPT/HCPCS: 80053; 80061; 83036; 85025 ==

== ENCOUNTER 2021-04-15 18:29 | Emergency (ER) | payer MEDICARE, MEDICAID, SELFPAY ==
[2021-04-15 18:43] VITALS: BP 101/61; PULSE 83; RESP 20; TEMP 36.8; O2SAT 97; BMI 37.3
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
[2021-04-15 20:33] VITALS: BP 96/61; PULSE 109; RESP 18; O2SAT 94
[2021-04-15 20:34] LABS: Basophils # 0.1 10^3/uL (0.0-0.1); Eosinophils # 0.3 10^3/uL (0.0-0.8); Eosinophils % 2.4 %; Hematocrit 39.5 % (42.0-52.0); Hemoglobin 13.4 g/dL (11.7-16.6); Lymphocytes % 18.8 %; Mean Corpuscular HGB Conc 33.9 g/dL (30.0-36.0); Mean Corpuscular Hemoglobin 30.5 pg (28.0-34.0); Mean Platelet Volume 10.5 fL (7.4-10.4); Monocytes # 0.7 10^3/uL (0.2-0.9); Monocytes % 6.3 %; Neutrophils # 7.61 10^3/uL (1.8-7.7); Nucleated Red Blood Cells % 0 %; Platelet Count 283 10^3/cmm (130-400); Red Blood Count 4.39 10^6/uL (4.1-5.3); Red Cell Distribution Width 13.3 % (12.1-15.1); White Blood Count 10.7 10^3/uL (4.0-10.0)
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
[2021-04-15 21:01] LABS: Alanine Aminotransferase 90 U/L (0-41); Albumin Level 4.5 g/dL (3.5-5.2); Alkaline Phosphatase 76 IU/L (40-130); Anion Gap 18.3 (5-19); Aspartate Amino Transferase 101 U/L (0-40); Blood Urea Nitrogen 29 mg/dL (8-23); Calcium 9.8 mg/dL (8.5-10.5); Carbon Dioxide 22 mmol/L (22-29); Chloride 103 mmol/L (98-107); Globulin 2.5 g/dL (1.3-4.6); Glucose 227 mg/dL (65-115); Osmolality Calculated 301 mOsm/kg (285-295); Potassium 4.3 mmol/L (3.5-5.1); Sodium 139 mmol/L (136-145); Total Bilirubin 0.4 mg/dL (0.15-1.2)
[2021-04-15] MEDS: iohexol 350 mg/mL 100 mL Btl IV (21:29)
[2021-04-15 23:52] VITALS: BP 108/76; PULSE 99; RESP 17; O2SAT 97
== END 2021-04-15 23:53 | disposition home or self-care (01) ==
PROVIDERS: Emergency Provider Emergency Medicine; PCP Nurse Practitioner Family
DX: S70.12XA Contusion of left thigh, initial encounter (principal); R74.01 Elevation of levels of liver transaminase levels; Z79.82 Long term (current) use of aspirin; Z79.84 Long term (current) use of oral hypoglycemic drugs; Z79.4 Long term (current) use of insulin; E11.9 Type 2 diabetes mellitus without complications; I10 Essential (primary) hypertension; Z77.22 Contact with and (suspected) exposure to environmental tobacco smoke (acute) (chronic); V59.40XA Driver of pick-up truck or van injured in collision with unspecified motor vehicles in traffic accident, initial encounter
CPT/HCPCS: 70450; 71045; 72125; 72170; 72192; 73552; 73562; 73706; 80053; 85025; 99283; Q9967

== ENCOUNTER → 2021-05-06 08:52 | Outpatient (BNVA) | payer MEDICARE, MEDICAID, SELFPAY | PROVIDERS: PCP Nurse Practitioner Family; Visit Provider Nurse Practitioner Family | DX: I10 Essential (primary) hypertension (principal); E11.9 Type 2 diabetes mellitus without complications | CPT/HCPCS: 80053; 80061; 83036 ==

== ENCOUNTER → 2021-05-10 13:51 | Outpatient (BNVA) | payer MEDICARE, MEDICAID, SELFPAY | PROVIDERS: PCP Nurse Practitioner Family; Visit Provider Nurse Practitioner Family | DX: I10 Essential (primary) hypertension (principal); Z87.891 Personal history of nicotine dependence | CPT/HCPCS: 99213 ==

== ENCOUNTER → 2021-05-11 09:13 | Outpatient (BNVA) | payer MEDICARE, MEDICAID, SELFPAY | PROVIDERS: PCP Nurse Practitioner Family; Visit Provider Nurse Practitioner Family | DX: E11.9 Type 2 diabetes mellitus without complications (principal); R81 Glycosuria | CPT/HCPCS: 82962 ==

== ENCOUNTER → 2021-07-06 09:37 | Outpatient (BNVA) | payer MEDICARE, MEDICAID, SELFPAY | PROVIDERS: PCP Nurse Practitioner Family; Visit Provider Podiatrist Foot & Ankle Surgery | DX: L84 Corns and callosities (principal); L60.3 Nail dystrophy; E11.42 Type 2 diabetes mellitus with diabetic polyneuropathy; Z89.422 Acquired absence of other left toe(s) | CPT/HCPCS: 11055; 11721 ==

== ENCOUNTER → 2021-08-06 13:17 | Outpatient (BNVA) | payer MEDICARE, MEDICAID, SELFPAY | PROVIDERS: PCP Nurse Practitioner Family; Visit Provider Podiatrist Foot & Ankle Surgery | DX: Z89.422 Acquired absence of other left toe(s) (principal); E11.42 Type 2 diabetes mellitus with diabetic polyneuropathy; L84 Corns and callosities; L60.3 Nail dystrophy | CPT/HCPCS: 99213; 99214 ==

== ENCOUNTER → 2021-09-08 11:20 | Outpatient (BNVA) | payer MEDICARE, MEDICAID, SELFPAY | PROVIDERS: PCP Nurse Practitioner Family; Visit Provider Family Medicine | DX: I10 Essential (primary) hypertension (principal); E11.9 Type 2 diabetes mellitus without complications | CPT/HCPCS: 80053; 80061; 83036; 85025 ==

== ENCOUNTER → 2021-09-15 09:11 | Outpatient (BNVA) | payer MEDICARE, MEDICAID, SELFPAY | PROVIDERS: PCP Nurse Practitioner Family; Visit Provider Podiatrist Foot & Ankle Surgery | DX: Z89.422 Acquired absence of other left toe(s) (principal); M79.672 Pain in left foot; E11.42 Type 2 diabetes mellitus with diabetic polyneuropathy; L84 Corns and callosities; L60.3 Nail dystrophy | CPT/HCPCS: 99213; 99214 ==

== ENCOUNTER → 2021-09-17 09:11 | Outpatient (BNVA) | payer MEDICARE, MEDICAID, SELFPAY | PROVIDERS: PCP Nurse Practitioner Family; Visit Provider Nurse Practitioner Family | DX: M25.552 Pain in left hip (principal) | CPT/HCPCS: 73502 ==

== ENCOUNTER 2021-12-01 06:00 | Outpatient (RCR) | payer MEDICARE, MEDICAID, SELFPAY | END 2021-12-20 23:59 | disposition home or self-care (01) | LOC: TPT 06:00 | PROVIDERS: PCP Nurse Practitioner Family; Visit Provider Nurse Practitioner Family | DX: M53.3 Sacrococcygeal disorders, not elsewhere classified (principal); M25.552 Pain in left hip | CPT/HCPCS: 97110; 97163 ==

== ENCOUNTER → 2021-12-06 12:42 | Outpatient (BNVA) | payer MEDICARE, MEDICAID, SELFPAY | PROVIDERS: PCP Nurse Practitioner Family; Visit Provider Internal Medicine | DX: I10 Essential (primary) hypertension (principal) | CPT/HCPCS: 99213; 99214 ==

== ENCOUNTER → 2021-12-07 11:08 | Outpatient (BNVA) | payer MEDICARE, MEDICAID, SELFPAY | PROVIDERS: PCP Nurse Practitioner Family; Visit Provider Podiatrist Foot & Ankle Surgery | DX: E11.8 Type 2 diabetes mellitus with unspecified complications (principal); Z89.422 Acquired absence of other left toe(s); Z79.84 Long term (current) use of oral hypoglycemic drugs; Z79.4 Long term (current) use of insulin; E11.42 Type 2 diabetes mellitus with diabetic polyneuropathy; L84 Corns and callosities; L60.3 Nail dystrophy | CPT/HCPCS: 99213; 99214 ==

== ENCOUNTER 2021-12-21 06:00 | Outpatient (RCR) | payer MEDICARE, MEDICAID, SELFPAY | END 2021-12-22 23:59 | disposition home or self-care (01) | LOC: TPT 06:00 | PROVIDERS: PCP Nurse Practitioner Family; Visit Provider Nurse Practitioner Family | DX: M53.3 Sacrococcygeal disorders, not elsewhere classified (principal); M25.552 Pain in left hip | CPT/HCPCS: 97110 ==

== ENCOUNTER → 2022-01-11 09:33 | Outpatient (BNVA) | payer MEDICARE, MEDICAID, SELFPAY | PROVIDERS: PCP Nurse Practitioner Family; Visit Provider Podiatrist Foot & Ankle Surgery | DX: Z89.422 Acquired absence of other left toe(s) (principal); Z79.84 Long term (current) use of oral hypoglycemic drugs; Z79.4 Long term (current) use of insulin; E11.621 Type 2 diabetes mellitus with foot ulcer; L97.512 Non-pressure chronic ulcer of other part of right foot with fat layer exposed; E11.42 Type 2 diabetes mellitus with diabetic polyneuropathy; L60.3 Nail dystrophy | CPT/HCPCS: 11042; 11721 ==

== ENCOUNTER → 2022-02-23 13:20 | Outpatient (BNVA) | payer MEDICARE, MEDICAID, SELFPAY | PROVIDERS: PCP Nurse Practitioner Family; Visit Provider Podiatrist Foot & Ankle Surgery | DX: E11.42 Type 2 diabetes mellitus with diabetic polyneuropathy (principal); L60.3 Nail dystrophy; Z79.4 Long term (current) use of insulin; Z79.84 Long term (current) use of oral hypoglycemic drugs; Z89.422 Acquired absence of other left toe(s) | CPT/HCPCS: 99214 ==

== ENCOUNTER → 2022-03-30 13:12 | Outpatient (BNVA) | payer MEDICARE, MEDICAID, SELFPAY | PROVIDERS: PCP Nurse Practitioner Family; Visit Provider Podiatrist Foot & Ankle Surgery | DX: E11.42 Type 2 diabetes mellitus with diabetic polyneuropathy (principal); L60.3 Nail dystrophy; Z89.422 Acquired absence of other left toe(s); Z79.84 Long term (current) use of oral hypoglycemic drugs; Z79.4 Long term (current) use of insulin | CPT/HCPCS: 99214 ==

== ENCOUNTER → 2022-04-27 10:56 | Outpatient (BNVA) | payer MEDICARE, MEDICAID, SELFPAY | PROVIDERS: PCP Nurse Practitioner Family; Visit Provider Nurse Practitioner Family | DX: I10 Essential (primary) hypertension (principal); E11.65 Type 2 diabetes mellitus with hyperglycemia | CPT/HCPCS: 80053; 80061; 82043; 83036; 84443; 85025 ==

== ENCOUNTER → 2022-05-11 12:51 | Outpatient (BNVA) | payer MEDICARE, MEDICAID, SELFPAY | PROVIDERS: PCP Nurse Practitioner Family; Visit Provider Podiatrist Foot & Ankle Surgery | DX: Z89.422 Acquired absence of other left toe(s) (principal); Z79.84 Long term (current) use of oral hypoglycemic drugs; Z79.4 Long term (current) use of insulin; E11.42 Type 2 diabetes mellitus with diabetic polyneuropathy; L60.3 Nail dystrophy | CPT/HCPCS: 11721 ==

== ENCOUNTER → 2022-06-22 12:19 | Outpatient (BNVA) | payer MEDICARE, MEDICAID, SELFPAY | PROVIDERS: PCP Nurse Practitioner Family; Visit Provider Podiatrist Foot & Ankle Surgery | DX: Z89.412 Acquired absence of left great toe (principal); Z79.84 Long term (current) use of oral hypoglycemic drugs; Z79.4 Long term (current) use of insulin; E11.42 Type 2 diabetes mellitus with diabetic polyneuropathy; L60.3 Nail dystrophy; L84 Corns and callosities | CPT/HCPCS: 11055; 11721 ==

== ENCOUNTER → 2022-09-05 11:13 | Outpatient (BNVA) | payer MEDICARE, MEDICAID, SELFPAY | PROVIDERS: PCP Nurse Practitioner Family; Visit Provider Podiatrist Foot & Ankle Surgery | DX: E11.42 Type 2 diabetes mellitus with diabetic polyneuropathy (principal); L84 Corns and callosities; L60.3 Nail dystrophy; Z89.422 Acquired absence of other left toe(s); Z79.4 Long term (current) use of insulin; Z79.84 Long term (current) use of oral hypoglycemic drugs | CPT/HCPCS: 11056; 11721 ==

== ENCOUNTER → 2022-10-05 08:42 | Outpatient (BNVA) | payer MEDICARE, MEDICAID, SELFPAY | PROVIDERS: PCP Nurse Practitioner Family; Visit Provider Nurse Practitioner Family | DX: L03.115 Cellulitis of right lower limb (principal) | CPT/HCPCS: 80053; 85025 ==

== ENCOUNTER → 2022-10-28 09:56 | Outpatient (BNVA) | payer MEDICARE, MEDICAID, SELFPAY | PROVIDERS: PCP Nurse Practitioner Family; Visit Provider Nurse Practitioner Family | DX: I10 Essential (primary) hypertension (principal) | CPT/HCPCS: 80048 ==

== ENCOUNTER → 2022-10-31 09:19 | Outpatient (BNVA) | payer MEDICARE, MEDICAID, SELFPAY | PROVIDERS: PCP Nurse Practitioner Family; Visit Provider Podiatrist Foot & Ankle Surgery | DX: E11.8 Type 2 diabetes mellitus with unspecified complications (principal); S98.132A Complete traumatic amputation of one left lesser toe, initial encounter; L84 Corns and callosities; E11.42 Type 2 diabetes mellitus with diabetic polyneuropathy; L60.3 Nail dystrophy; L97.512 Non-pressure chronic ulcer of other part of right foot with fat layer exposed; Z89.422 Acquired absence of other left toe(s); Z79.84 Long term (current) use of oral hypoglycemic drugs; Z79.4 Long term (current) use of insulin; X58.XXXA Exposure to other specified factors, initial encounter | CPT/HCPCS: 11056; 11721; 99214 ==

== ENCOUNTER 2022-11-12 10:29 | Inpatient (IN) | payer MEDICARE, MEDICAID, SELFPAY ==
[2022-11-12] VITALS (10 sets, daily range): BP systolic 92–135; BP diastolic 53–70; PULSE 106–125; RESP 13–28; TEMP 38.1–39.6; O2SAT 92–96; BMI 35.9
--- NOTE | 2022-11-12 10:34 | XRR_ITS ---
PROCEDURE INFORMATION: Exam: XR Chest Exam date and time: 11/12/2022 10:39 AM Age: 72 years old Clinical indication: Pain; Chest pressure; Additional info: Chest pain TECHNIQUE: Imaging protocol: Radiologic exam of the chest. Views: 1 view. COMPARISON: CR XR chest 1V portable [id number] 04/15/2021 7:39 PM FINDINGS: Tubes, catheters and devices: Partially visualized spinal stimulator lead in stable position. Lungs: Unremarkable. No consolidation. Pleural spaces: Unremarkable. No pleural effusion. No pneumothorax. Heart/Mediastinum: Unremarkable. No cardiomegaly. Bones/joints: Degenerative changes along the spine and shoulders. XR/XR chest 1V portable [id number] IMPRESSION: No acute findings.
--- NOTE | 2022-11-12 10:34 | ECG_ITS ---
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 Measurements Intervals [place] Rate: 126 P: 11 WI: 171 QRS: -3 QRSD: 115 T: 58 QT: 309 QTc: 448 Interpretive Statements SINUS TACHYCARDIA POSSIBLE INFERIOR MYOCARDIAL INFARCTION , PROBABLY OLD [30 ms Q WAVE IN II/aVF] POSSIBLE ANTEROLATERAL MYOCARDIAL INFARCTION , OF INDETERMINATE AGE [30 ms Q WAVE IN I/aVL/V3-V6] Compared to ECG 10/04/2018 11:19:48 Sinus rhythm no longer present Myocardial infarct finding still present Electronically Signed On 11-12-2022 20:31:01 CDT by Dallin Coelho M.D. [email or web address] TechnologyKeyVivesouthern ohio medical center.[employer]/store/NU/[id number] f
[2022-11-12 10:49] LABS: Basophils # 0.1 10^3/uL (0.0-0.1); Basophils % 0.5 %; Eosinophils # 0.1 10^3/uL (0.0-0.8); Eosinophils % 0.5 %; Hematocrit 39.8 % (37-53); Lymphocytes # 0.6 10^3/uL (0.8-4.8); Lymphocytes % 4.9 %; Mean Corpuscular HGB Conc 32.4 g/dL (30-55); Mean Corpuscular Volume 92.6 fl (82-101); Mean Platelet Volume 10.3 fL (7.4-10.4); Monocytes # 0.7 10^3/uL (0.2-0.9); Monocytes % 5.7 %; Neutrophils # 10.01 10^3/uL (1.8-7.7); Nucleated Red Blood Cells % 0 %; Platelet Count 238 10^3/cmm (157-399); Red Cell Distribution Width 13.8 % (12.1-15.1); White Blood Count 11.39 10^3/uL (3.29-11.43)
[2022-11-12 11:08] LABS: Troponin(5th) Baseline 12 ng/L (0-15)
[2022-11-12 11:11] LABS: Alanine Aminotransferase 19 U/L (0-41); Albumin Level 4.4 g/dL (3.5-5.2); Alkaline Phosphatase 61 U/L (40-130); Anion Gap 16.1 (5-19); Aspartate Amino Transferase 21 U/L (0-40); Blood Urea Nitrogen 22 mg/dL (8-23); Calcium 9.2 mg/dL (8.5-10.5); Carbon Dioxide 23 mmol/L (22-29); Chloride 101 mmol/L (98-107); Globulin 2.3 g/dL (1.3-4.6); Glucose 215 mg/dL (65-115); Osmolality Calculated 292 mOsm/kg (285-295); Potassium 4.1 mmol/L (3.5-5.1); Sodium 136 mmol/L (136-145); Total Bilirubin 0.4 mg/dL (0.15-1.2); Total Protein 6.7 g/dL (6.6-8.7)
--- NOTE | 2022-11-12 11:18 | USR_ITS ---
PROCEDURE INFORMATION: Exam: US Duplex Right Lower Extremity Veins, Limited Exam date and time: 11/12/2022 11:50 AM Age: 72 years old Clinical indication: Pain; Leg, lower; Right; Additional info: Pain swelling TECHNIQUE: Imaging protocol: Real-time duplex ultrasound of the right extremity with 2-D gutierrez scale, color Doppler flow and spectral waveform analysis including responses to compression and other maneuvers (when performed) with image documentation. Limited exam was focused on the right lower extremity veins. COMPARISON: CT pelvis wo con [id number] 04/15/2021 9:30 PM FINDINGS: Right deep veins: Unremarkable. The common femoral, femoral, proximal profunda femoral and popliteal veins are patent without thrombus. Normal Doppler waveforms. Normal compressibility and/or augmentation response. Interrogated calf veins are patent. Superficial veins: Unremarkable. Saphenofemoral junction is patent without thrombus. Soft tissues: Unremarkable. US/[place] [id number] IMPRESSION: No evidence of deep vein thrombosis.
--- NOTE | 2022-11-12 11:20 | ED_ITS ---
HPI - Chest Pain General: Chief Complaint: Chest Pain Stated Complaint: CHEST PAIN Time Seen by Provider: 11/12/22 10:34 Source: patient Mode of arrival: ambulatory History of Present Illness: 72-year-old male presents to the emergency room with complaints of fever intermittent chest discomfort and shortness of breath. Chest pain has been on and off for 2 days he initially thought it was heartburn was worse this morning describes pain as being on the right side of his chest radiating to his right arm shoulder and up into his neck. He did take aspirin while in route with EMS. Does have a history of diabetes mellitus he has a right plantar diabetic foot ulcer that has been seeing Dr. Perez for he has redness erythema and tenderness of the right calf he has intermittently had cellulitis in the past as well is not currently on any antibiotics. MD complaint: chest pain Onset (ago): hour(s) Pain location: right chest Pain radiation: right arm, neck and right shoulder Severity: moderate Quality: sharp Relieving factors: nothing Exacerbating factors: nothing Associated symptoms: Reports dyspnea and fever(s); Deny abdominal pain, diaphoresis, leg edema, nausea, palpitations, sense of impending doom, syncope, vomiting or other Treatment prior to arrival: none Review of Systems Const: Reports: fever(s); Denies: diaphoresis Card: Denies: palpitations or syncope Resp: Reports: dyspnea GI: Denies: abdominal pain, nausea or vomiting PFS ED PFSH: Medical History Callus of foot Carotid bruit Cervical radiculopathy Diabetes mellitus GERD (gastroesophageal reflux disease) HTN (hypertension) Hyperlipidemia Insomnia Intervertebral disc disorder Macrocytosis Paresthesia Right thyroid nodule Sacroiliac joint disease Shortness of breath Sinus tachycardia Spinal cord stimulator status Varicose veins of both lower extremities Surgical History History of colonoscopy S/P carpal tunnel release S/P knee replacement Bilateral S/P lumbar fusion S/P shoulder surgery Status post amputation of toe Family History Other Cancer Diabetes Heart disease Social History Smoking and tobacco status: never smoked Second hand smoke exposure: Yes Alcohol intake: never Substance/Drug Use: never Caregiver/support person: Yes Lives independently: Yes Household members: spouse Marital status: service: No Current occupational status: retired Current gender identity: Male Special kellee needs: No Physical Exam Const: GENERAL APPEARANCE: cooperative and comfortable ORIENTATION/CONSCIOUSNESS: Yes awake, Yes oriented to person, Yes oriented to place and Yes oriented to time HENMT: COMMON NORMALS: normocephalic, atraumatic and hearing grossly normal bilaterally HEAD & SCALP: normocephalic and atraumatic Resp: COMMON NORMALS: normal respiratory effort, No retractions, No use of accessory muscles and clear to auscultation bilaterally AUSCULTATION: clear to auscultation bilaterally Cardio: COMMON NORMALS: regular rhythm and No murmurs present (Cardio) RATE: tachycardic RHYTHM: regular rhythm GI: COMMON NORMALS: Soft to palpation and No hepatosplenomegaly present AUSCULTATION: Yes normoactive bowel sounds PALPATION: Yes Soft to palpation, No Tenderness to palpation present (GI), No Guarding due to palpation present (GI) and Yes No hepatosplenomegaly present Extremity: OTHER: Diabetic foot ulcer underlying first MP joint appears to be stage II-III. No active drainage. Moderate redness of the right lower leg warm to the touch no induration no abscess or drainage Neuro: SENSORIUM/ORIENTATION: Yes oriented to person, Yes oriented to place and Yes oriented to time Skin: COMMON NORMALS: no rashes or lesions noted GENERAL SKIN EXAM: no isael hes or lesions noted Course Vital Signs: Vital signs: Vital Signs Temperature 101.6 F H 11/12/22 12:38 Pulse Rate 118 H 11/12/22 13:50 Respiratory Rate 13 11/12/22 13:50 Blood Pressure 106/64 11/12/22 13:50 Pulse Oximetry 94 11/12/22 13:50 Oxygen Delivery Me thod Room Air 11/12/22 12:35 MDM - Chest Pain Medical Decision Making Labs and imaging reviewed no DVT. Patient is showing signs of sepsis we will start on Vanco and Zosyn. Do not believe he has an osteomyelitis the alk phos is normal discussed with hospitalist orders written. Medical Records I reviewed the patient's medical records. Lab Data I reviewed the patient's lab results. 11/12/22 10:40 11/12/22 10:40 Radiology Impressions Chest X-Ray 11/12/22 10:34 IMPRESSION: No acute findings. Venous Duplex 11/12/22 11:18 IMPRESSION: No evidence of deep vein thrombosis. Laboratory Results WBC 11.39 10^3/uL (3.29-11.43) 11/12/22 10:40 RBC 4.30 10^6/uL (3.85-5.65) 11/12/22 10:40 Hgb 12.90 g/dL (11.27-16.99) 11/12/22 10:40 Hct 39.8 % (37-53) 11/12/22 10:40 MCV 92.6 fl (82-101) 11/12/22 10:40 MCH 30.0 pg (27-33) 11/12/22 10:40 MCHC 32.4 g/dL (30-55) 11/12/22 10:40 RDW 13.8 % (12.1-15.1) 11/12/22 10:40 Plt Count 238 10^3/cmm (157-399) 11/12/22 10:40 MPV 10.3 fL (7.4-10.4) 11/12/22 10:40 Neut % (Auto) 88.0 % 11/12/22 10:40 Lymph % (Auto) 4.9 % 11/12/22 10:40 [place] % (Auto) 5.7 % 11/12/22 10:40 Eos % (Auto) 0.5 % 11/12/22 10:40 Baso % (Auto) 0.5 % 11/12/22 10:40 Neut # (Auto) 10.01 10^3/uL (1.8-7.7) H 11/12/22 10:40 Lymph # (Auto) 0.6 10^3/uL (0.8-4.8) L 11/12/22 10:40 [place] # (Auto) 0.7 10^3/uL (0.2-0.9) 11/12/22 10:40 Eos # (Auto) 0.1 10^3/uL (0.0-0.8) 11/12/22 10:40 Baso # (Auto) 0.1 10^3/uL (0.0-0.1) 11/12/22 10:40 Nucleated RBC % (auto) 0 % 11/12/22 10:40 Nucleated RBCs # 0.0 /100WBC 11/12/22 10:40 Sodium 136 mmol/L (136-145) 11/12/22 10:40 Potassium 4.1 mmol/L (3.5-5.1) 11/12/22 10:40 Chloride 101 mmol/L (98-107) 11/12/22 10:40 Carbon Dioxide 23 mmol/L (22-29) 11/12/22 10:40 Anion Gap 16.1 (5-19) 11/12/22 10:40 BUN 22 mg/dL (8-23) 11/12/22 10:40 Creatinine 1.0 mg/dL (0.7-1.2) 11/12/22 10:40 GFR Calculation Not Reportable 11/12/22 10:40 Glucose 215 mg/dL (65-115) H 11/12/22 10:40 Calculated Osmolality 292 mOsm/kg (285-295) 11/12/22 10:40 Lactic Acid 2.6 mmol/L (0.5-2.2) H 11/12/22 10:40 Calcium 9.2 mg/dL (8.5-10.5) 11/12/22 10:40 Total Bilirubin 0.4 mg/dL (0.15-1.2) 11/12/22 10:40 AST 21 U/L (0-40) 11/12/22 10:40 ALT 19 U/L (0-41) 11/12/22 10:40 Alkaline Phosphatase 61 U/L (40-130) 11/12/22 10:40 Troponin T Baseline 12 ng/L (0-15) 11/12/22 10:40 Total Protein 6.7 g/dL (6.6-8.7) 11/12/22 10:40 Albumin 4.4 g/dL (3.5-5.2) 11/12/22 10:40 Globulin 2.3 g/dL (1.3-4.6) 11/12/22 10:40 Urine Color Yellow (Yellow) 11/12/22 11:20 Urine Appearance Clear (CLEAR) 11/12/22 11:20 Urine pH 5 (5-7) 11/12/22 11:20 Ur Specific [place] 1.005 (1.005-1.030) 11/12/22 11:20 Urine Protein Neg (Negative) 11/12/22 11:20 Urine Glucose (UA) 4+ (Normal) H 11/12/22 11:20 Urine Ketones Negative (Negative) 11/12/22 11:20 Urine Blood Neg (Negative) 11/12/22 11:20 Urine Nitrate Negative (Negative) 11/12/22 11:20 Urine Bilirubin Neg (Negative) 11/12/22 11:20 Urine Urobilinogen Norm mg/dL (Negative) 11/12/22 11:20 Ur Leukocyte Esterase Negative (Negative) 11/12/22 11:20 No radiology studies performed this visit Discharge Plan Discharge Patient Disposition: Admitted As Inpatient Admit Provider: Vahe Ann Clinical Impression: Cellulitis of leg, right, Diabetic foot ulcer, Sepsis Condition: Stable Coding Level of Care Code ED Allopathic Doctor for Tal Vasquez
[2022-11-12 11:41] LABS: Lactic Sepsis W/Reflex 2.6 mmol/L (0.5-2.2)
[2022-11-12 11:53] LABS: Reflex Lactate Order REFLEX LACTIC ORDERD
[2022-11-12] MEDS: vancomycin 1,000 MG in sodium chloride 0.9% 250 ML 250 MG IV (12:00)
--- NOTE | 2022-11-12 12:26 | ECG_ITS ---
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 Measurements Intervals [place] Rate: 115 P: 21 AL: 189 QRS: 5 QRSD: 113 T: 50 QT: 323 QTc: 448 Interpretive Statements SINUS TACHYCARDIA PROBABLE INFERIOR MYOCARDIAL INFARCTION , PROBABLY OLD [35 ms Q WAVE IN II/aVF] PROBABLE ANTEROLATERAL MYOCARDIAL INFARCTION , OF INDETERMINATE AGE [35 ms Q WAVE IN I/aVL/V3-V6] Compared to ECG 10/04/2018 11:19:48 Sinus rhythm no longer present Myocardial infarct finding still present Electronically Signed On 11-12-2022 20:31:33 CDT by Dallin Coelho M.D. [email or web address] Enterprisesummc holmes countyCoda Paymentsholmes county [facility].[employer]/store/OM/[id number]
[2022-11-12 12:40] LABS: Add Urine Microscopic? NO; Charge for UA Resulting for Rev
[2022-11-12 12:43] LABS: Bilirubin Urine Neg (Negative); Blood Urine Neg (Negative); Glucose Urine UA 4+ (Normal); Ketones Urine Negative (Negative); Leukocyte Esterase Urine Negative (Negative); Nitrate Urine Negative (Negative); Protein Urine Neg (Negative); Specific Gravity, Urine 1.005 (1.005-1.030); Urine Appearance Clear (CLEAR); Urine Color Yellow (Yellow); Urobilinogen Urine Norm (Negative); pH Urine 5 (5-7)
[2022-11-12] MEDS: acetaminophen 500 mg Tablet 1000 MG PO (12:49)
[2022-11-12 13:39] LABS: Troponin 5 2HR 16.21 ng/L (0-15)
[2022-11-12 13:41] LABS: Troponin 5 2HR Delta 4.21 ABS# (0-10)
--- NOTE | 2022-11-12 14:18 | PM.HP ---
Providers/Chief Complaint Admitting Physician: Vahe Ann MD Primary Care Provider: TRUNG Todd Chief Complaint: CHEST PAIN History of Present Illness Yinka Mckinnon is a 72 year old male who presented to hospital for chief complaint of fever, chills. Patient is stating that he is following up with Dr. Perez for his foot ulcer. He is diabetic. He has not noticed any nausea or vomiting, not complaining of any chest pain or shortness of breath. Here he was diagnosed with sepsis related to foot ulcer, CT scan of right lower extremity was requested. No evidence of osteomyelitis no evidence of abscess, he was given septic bolus along antibiotics cultures were taken Review of Systems Const: Reports: fever(s) and chills Eyes: Denies: change in vision ENMT: Denies: throat pain Card: Denies: chest pain Resp: Denies: dyspnea GI: Denies: abdominal pain : Denies: flank pain Musc: Denies: neck pain Medications/Allergies Home Medications Medication Instructions Recorded Confirmed Last Taken Type aspirin 81 mg tablet,delayed 81 mg PO DAILY 03/07/19 11/12/22 11/12/22 History release (Adult Low Dose Aspirin) hydrocodone 7.5 mg-acetaminophen 1 tab PO TID PRN Pain 03/07/19 11/12/22 1 Day Ago History 325 mg tablet ~11/19/20 nitroglycerin 0.4 mg sublingual 0.4 mg sublingual Q5M PRN chest 04/23/21 11/12/22 11/12/22 Rx tablet pain #25 tabs mupirocin 2 % topical ointment 1 applic topical BID #22 grams 07/06/21 11/12/22 11/11/22 Rx miscellaneous medical supply #1 ea 09/17/21 11/12/22 Unknown Rx metoprolol succinate 25 mg 12.5 mg PO DAILY #45 tabs 03/23/22 11/12/22 11/12/22 Rx tablet,extended release 24 hr pen needle, diabetic 31 gauge x ##100 10/17/22 11/12/22 Unknown Rx 05/05 (BD Ultra-Fine Mini Pen Needle) diabetic shoes with 3 inserts #1 ea 10/31/22 11/12/22 Unknown Rx gabapentin 600 mg tablet See Rx Instructions .Route 11/02/22 11/12/22 11/12/22 Rx .COMPLEX #120 tabs fluticasone propionate 50 See Rx Instructions .Route 11/04/22 11/12/22 11/12/22 Rx mcg/actuation nasal .COMPLEX #32 grams spray,suspension baclofen 20 mg tablet 20 mg PO TID 11/12/22 11/12/22 11/12/22 History buspirone 10 mg tablet 10 mg PO BID 11/12/22 11/12/22 11/12/22 History celecoxib 200 mg capsule 200 mg PO BID PRN Pain 11/12/22 11/12/22 Unknown History dapagliflozin propanediol 10 mg 10 mg PO DAILY 11/12/22 11/12/22 11/12/22 History tablet (Farxiga) duloxetine 60 mg capsule,delayed 60 mg PO BID 11/12/22 11/12/22 11/12/22 History release famotidine 20 mg tablet 20 mg PO DAILY 11/12/22 11/12/22 11/12/22 History fenofibrate 160 mg tablet 160 mg PO DAILY 11/12/22 11/12/22 11/12/22 History insulin detemir U-100 100 unit/mL 25 unit SUBCUT BEDTIME 11/12/22 11/12/22 11/11/22 History (3 mL) subcutaneous pen (Levemir FlexPen) levocetirizine 5 mg tablet 5 mg PO DAILY 11/12/22 11/12/22 11/12/22 History liraglutide 0.6 mg/0.1 mL (18 mg/3 1.8 mg SUBCUT DAILY 11/12/22 11/12/22 11/12/22 History mL) subcutaneous pen injector (Victoza 3-Sincere) metformin 500 mg tablet,extended 1,000 mg PO BID 11/12/22 11/12/22 11/12/22 History release 24 hr nortriptyline 25 mg capsule 25 mg PO BID 11/12/22 11/12/22 11/12/22 History tamsulosin 0.4 mg capsule 0.4 mg PO BID 11/12/22 11/12/22 11/12/22 History Allergies Allergy/AdvReac Type Severity Reaction Status Date / Time sulfamethoxazole Allergy Intermediate itching/sti Verified 11/12/22 11:22 [From Bactrim] nging trimethoprim [From Bactrim] Allergy Intermediate itching/sti Verified 11/12/22 11:22 nging oxycodone Allergy Unknown Unknown Verified 11/12/22 11:22 topiramate [From Topamax] Allergy Unknown Verified 11/12/22 11:22 PFSH Acute PFSH: Medical History Callus of foot Carotid bruit Cervical radiculopathy Diabetes mellitus GERD (gastroesophageal reflux disease) HTN (hypertension) Hyperlipidemia Insomnia Intervertebral disc disorder Macrocytosis Paresthesia Right thyroid nodule Sacroiliac joint disease Shortness of breath Sinus tachycardia Spinal cord stimulator status Varicose veins of both lower extremities Surgical History History of colonoscopy S/P carpal tunnel release S/P knee replacement Bilateral S/P lumbar fusion S/P shoulder surgery Status post amputation of toe Family History Other Cancer Diabetes Heart disease Social History Smoking and tobacco status: never smoked Second hand smoke exposure: Yes Alcohol intake: never Substance/Drug Use: never Caregiver/support person: Yes Lives independently: Yes Household members: spouse Marital status: service: No Current occupational status: retired Current gender identity: Male Special kellee needs: No Vitals/I&O/Wt Last Vital Signs Temp 101.6 F H 11/12/22 12:38 Pulse 118 H 11/12/22 13:50 Resp 13 11/12/22 13:50 BP 106/64 11/12/22 13:50 Pulse Ox 94 11/12/22 13:50 O2 Del Method Room Air 11/12/22 12:35 11/11/22 11/12/22 11/12/22 22:59 06:59 14:59 Intake Total 250 / 250 Balance 250 / 250 Weight last 48 hrs Weight 113.398 kg Physical Exam Narrative: Diabetic foot ulcer Plantar surface of right foot Hyperemia extending all the way up to his knees No active crepitation Awake and alert GCS 15 S1, S2 Nonfocal neuro exam Doing well on room air Pleasant and cooperative Data 11/13/22 04:56 11/13/22 04:56 Micro: Microbiology 11/12/22 11:25 Blood Culture - Preliminary Blood SPECIMEN COLLECTED 11/12/22 11:20 Blood Culture - Preliminary Blood SPECIMEN COLLECTED A&P Assessment and plan (1) Cellulitis of leg, right: (2) Diabetic foot ulcer: (3) Sepsis: Plan Sepsis with cellulitis of right lower extremity Sepsis criteria met with fever tachypnea tachycardia and high lactic acid He was given septic bolus along antibiotics blood cultures were taken Lactic acid trending down Start broad-spectrum antibiotic Blood cultures taken We will request CT scan of right lower extremity to rule out abscess Continue consistent carb diet with insulin sliding scale Patient follows up with podiatry outpatient Check A1c level We will touchbase with Dr. Perez Attestations Medical Necessity Statement*: More than 2 midnights anticipated for sepsis and cellulitis Diagnoses Cellulitis of leg, right L03.115 Diabetic foot ulcer E11.621; L97.509 Sepsis A41.9
--- NOTE | 2022-11-12 14:33 | CTR_ITS ---
PROCEDURE INFORMATION: Exam: CT Right Lower Extremity With Contrast Exam date and time: 11/12/2022 3:52 PM Age: 72 years old Clinical indication: Pain; Foot and lower leg; Right; Prior surgery; Surgery date: 6+ months; Surgery type: Knee; Additional info: Foot ulcer , sepsis TECHNIQUE: Imaging protocol: CT of the right lower extremity with intravenous contrast was performed. Sagittal and coronal reformatted images were created and reviewed. Radiation optimization: All CT scans at this facility use at least one of these dose optimization techniques: automated exposure control; mA and/or kV adjustment per patient size (includes targeted exams where dose is matched to clinical indication); or iterative reconstruction. REPORTING DATA: Count of CT and Cardiac NM exams in prior 12 months: This patient has received 0 known CTs and 0 known cardiac nuclear medicine studies in the 12 months prior to the current study. COMPARISON: CR XR foot RT min 3V* [id number] 12/19/2019 12:54 PM RADIATION DOSE METRICS: Total DLP (mGy-cm): 671.82 FINDINGS: Bones/joints: Patient has had a previous right total knee arthroplasty. Hammertoe deformities of the 1st through 5th toes. No acute fracture. No dislocation. Bones are mildly osteopenic. No lytic or sclerotic bony lesions. Soft tissues: Diffuse subcutaneous inflammation, mild at the right lower leg and moderate at the right foot suspicious for cellulitis. Small inferior to the 1st MTP joint. No evidence for an abscess. No soft tissue emphysema. Vasculature: Mild atherosclerotic changes in the visualized arteries. Visualized vessels are patent. CT/CT lower leg RT w con [id number] IMPRESSION: 1. No evidence for osteomyelitis. MRI without and with contrast may be obtained if there is continuing clinical concern for osteomyelitis. If the patient has any contradiction for MRI, 3 phase bone scan in conjunction with white blood cell scan may be obtained. 2. Diffuse subcutaneous inflammation, mild at the right lower leg and moderate at the right foot suspicious for cellulitis. Small ulcer inferior to the 1st MTP joint. No evidence for an abscess. No soft tissue emphysema. 3. Incidental/nonacute findings are listed in the report.
[2022-11-12 15:31] LABS: Procalcitonin 0.13 ng/mL (0-0.5)
[2022-11-12 15:45] LABS: Lactic Acid level (Lactate) 1.8 mmol/L (0.5-2.2)
[2022-11-12] MEDS: sodium chloride 0.9% 1,000 ML 50 ML IV ×2 (15:59→17:24)
[2022-11-12] MEDS: iohexol 350 mg/mL 500 mL Btl (per mL) IV (16:14)
--- NOTE | 2022-11-12 16:34 | ECG_ITS ---
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 [id number]
[2022-11-12] MEDS: FUROsemide 10 mg/mL SDV 10mL 40 MG IVP (17:24)
[2022-11-12] MEDS: piperacillin-tazobactam 3.375 GM in sodium chloride 0.9% (plus) 50 ML IV (17:26)
[2022-11-12 18:38] LABS: Troponin 5 6HR 16.89 ng/L (0-15)
[2022-11-12 18:41] LABS: Troponin 5 6HR Delta 4.89 ng/L (0-12)
[2022-11-12 20:04] LABS: Glucose Point of Care 214 mg/dL (70-110)
[2022-11-12] MEDS: morphine IR 15 mg Tablet PO (20:09)
[2022-11-12] MEDS: vancomycin 1,500 MG/300 ML PIGGYBACK 200 MG IV (21:04)
[2022-11-12] MEDS: acetaminophen 500 mg Tablet PO (22:34)
[2022-11-13] VITALS (12 sets, daily range): BP systolic 97–147; BP diastolic 61–79; PULSE 76–90; RESP 16–19; TEMP 36.9–37.7; O2SAT 91–97
[2022-11-13] MEDS: piperacillin-tazobactam 3.375 GM in sodium chloride 0.9% (plus) 50 ML IV ×3 (00:20→17:29)
--- NOTE | 2022-11-13 02:43 | PC.NURSE ---
family member expressed concern about pt. home meds not added to current medication regimen while here and concern that pt might begin to have withdraws. call placed to Dr. Salinas and home meds reviewed, sliding scale insulin added but Dr. Salinas unable to re-start home meds not knowing reasoning behind Dr. Ann not continuing home meds yet and pain control meds are currently in place, also home meds would not be started until morning therefore home meds will be discussed with Dr. Ann in the morning.
--- NOTE | 2022-11-13 04:02 | PC.NURSE ---
luiset and cell phone in drawer, socorro had $155 in [place], counted with another staff Tyrell, pt preferred to have wallet sent with granddaughter and pt wants to keep cell phone near him. luiset handed to granddaughter Rosio
[2022-11-13 05:21] LABS: Basophils % 0.4 %; Eosinophils % 0.1 %; Hematocrit 40.9 % (37-53); Lymphocytes # 1.6 10^3/uL (0.8-4.8); Lymphocytes % 18.2 %; Mean Corpuscular HGB Conc 31.5 g/dL (30-55); Mean Corpuscular Hemoglobin 29.8 pg (27-33); Mean Corpuscular Volume 94.5 fl (82-101); Mean Platelet Volume 10.1 fL (7.4-10.4); Monocytes # 0.6 10^3/uL (0.2-0.9); Monocytes % 6.8 %; Neutrophils # 6.33 10^3/uL (1.8-7.7); Neutrophils % 73.9 %; Nucleated Red Blood Cells % 0 %; Platelet Count 212 10^3/cmm (157-399); Red Blood Count 4.33 10^6/uL (3.85-5.65); Red Cell Distribution Width 13.9 % (12.1-15.1); White Blood Count 8.56 10^3/uL (3.29-11.43)
[2022-11-13 05:40] LABS: Anion Gap 13.7 (5-19); Blood Urea Nitrogen 21 mg/dL (8-23); C Reactive Protein 152.9 mg/L (0.0-4.9); Calcium 8.8 mg/dL (8.5-10.5); Carbon Dioxide 26 mmol/L (22-29); Chloride 101 mmol/L (98-107); Glucose 153 mg/dL (65-115); Magnesium 2.1 mg/dL (1.7-2.3); Osmolality Calculated 290 mOsm/kg (285-295); Potassium 3.7 mmol/L (3.5-5.1); Sodium 137 mmol/L (136-145)
[2022-11-13 06:47] LABS: Glucose Point of Care 178 mg/dL (70-110)
[2022-11-13] MEDS: morphine IR 15 mg Tablet PO ×2 (08:43→20:33)
[2022-11-13] MEDS: sennosides-docusate Tablet 1 TAB PO (08:43)
[2022-11-13] MEDS: metoprolol succinate ER (24 HR) 25 mg Tablet 12.5 MG PO (08:43)
[2022-11-13] MEDS: aspirin 81 mg EC Tablet PO (08:43)
[2022-11-13] MEDS: tamsulosin 0.4 mg Capsule PO ×2 (08:43→17:31)
[2022-11-13] MEDS: baclofen 10 mg Tablet 20 MG PO ×3 (08:43→20:33)
[2022-11-13] MEDS: insulin lispro 100 unit/1 mL SUBCUT ×3 (08:44→21:46)
[2022-11-13] MEDS: vancomycin 1,500 MG/300 ML PIGGYBACK 200 MG IV ×2 (08:46→20:37)
--- NOTE | 2022-11-13 09:48 | P.PN_ITS ---
Subjective Subjective: Patient was febrile overnight This morning is afebrile Feeling better Vitals/I&O/Wt Last Vital Signs Temp 98.6 F 11/13/22 07:31 Pulse 90 11/13/22 08:00 Resp 16 11/13/22 08:43 BP 125/77 11/13/22 07:31 Pulse Ox 91 11/13/22 08:00 O2 Del Method Room Air 11/13/22 08:00 11/12/22 11/13/22 11/13/22 22:59 06:59 14:59 Intake Total 1290 / 1540 350 / 1890 Output Total 225 / 225 800 / 1025 Balance 1065 / 1315 -450 / 865 Weight last 48 hrs Weight 113.398 kg Physical Exam Narrative: Hyperemia of right lower extremity improving Erythema is regressing No signs of vascular compromise No active drainage GCS 15 Awake and alert Currently on room air Pleasant and cooperative S1, S2 Data 11/13/22 04:56 11/13/22 04:56 Micro: Microbiology 11/12/22 11:25 Blood Culture - Preliminary Blood SPECIMEN COLLECTED 11/12/22 11:20 Blood Culture - Preliminary Blood SPECIMEN COLLECTED A&P Assessment and plan (1) Cellulitis of leg, right: (2) Diabetic foot ulcer: (3) Sepsis: (4) Non-pressure chronic ulcer of other part of right foot with fat layer exposed: (5) Callus of foot: (6) Decreased hearing of both ears: (7) Anxiety and depression: (8) Diabetes mellitus: Qualifiers: Diabetes mellitus type: type 2 Diabetes mellitus snf insulin use: without terminal operations supervisor use Diabetes mellitus complication status: with hyperglycemia Qualified Code(s): E11.65 - Type 2 diabetes mellitus with hyperglycemia (9) S/p total knee replacement, bilateral: Plan I will give patient 48 hours to see a good response to current antibiotics Clinical exam does show improvement of hyperemia No abscess or signs of osteomyelitis Continue current antibiotics We will follow-up blood cultures Patient does follow-up with Dr. Perez outpatient Lives with granddaughter who is an ICU nurse Patient is full code Consistent carb diet Continue sliding scale and insulin Continue opioids, bowel regimen Continue BPH with tamsulosin Attestations Medical Necessity Statement*: Patient most likely will stay until Monday Diagnoses Cellulitis of leg, right L03.115 Diabetic foot ulcer E11.621; L97.509 Sepsis A41.9 Non-pressure chronic ulcer of other part of right foot with fat layer exposed L97.512 Callus of foot L84 Decreased hearing of both ears H91.93 Anxiety and depression F41.9; F32.A Diabetes mellitus E11.65 Diabetes mellitus type: type 2 Diabetes mellitus terminal operations supervisor insulin use: without terminal operations supervisor use Diabetes mellitus complication status: with hyperglycemia S/p total knee replacement, bilateral Z96.653
[2022-11-13 11:02] LABS: Glucose Point of Care 292 mg/dL (70-110)
[2022-11-13] MEDS: ketorolac 30 mg/mL INJ 15 MG IVP ×2 (11:08→21:47)
[2022-11-13] MEDS: FUROsemide 10 mg/mL SDV 10mL 40 MG IVP (15:03)
[2022-11-13 16:53] LABS: Glucose Point of Care 128 mg/dL (70-110)
[2022-11-13 21:01] LABS: Glucose Point of Care 188 mg/dL (70-110)
[2022-11-13] MEDS: insulin glargine 100 units/1 mL 25 UNIT SUBCUT (21:47)
[2022-11-14] VITALS (10 sets, daily range): BP systolic 121–162; BP diastolic 68–80; PULSE 69–87; RESP 16–19; TEMP 36.5–36.9; O2SAT 94–96
[2022-11-14] MEDS: piperacillin-tazobactam 3.375 GM in sodium chloride 0.9% (plus) 50 ML IV ×3 (00:58→16:34)
[2022-11-14 05:37] LABS: Basophils # 0.1 10^3/uL (0.0-0.1); Basophils % 0.7 %; Eosinophils # 0.2 10^3/uL (0.0-0.8); Eosinophils % 2.6 %; Hematocrit 38.3 % (37-53); Lymphocytes # 1.6 10^3/uL (0.8-4.8); Lymphocytes % 22.9 %; Mean Corpuscular HGB Conc 32.1 g/dL (30-55); Mean Corpuscular Hemoglobin 30.1 pg (27-33); Mean Corpuscular Volume 93.9 fl (82-101); Mean Platelet Volume 10.1 fL (7.4-10.4); Monocytes # 0.7 10^3/uL (0.2-0.9); Monocytes % 9.7 %; Neutrophils # 4.46 10^3/uL (1.8-7.7); Neutrophils % 63.5 %; Nucleated Red Blood Cells % 0 %; Platelet Count 196 10^3/cmm (157-399); Red Blood Count 4.08 10^6/uL (3.85-5.65); Red Cell Distribution Width 13.9 % (12.1-15.1); White Blood Count 7.02 10^3/uL (3.29-11.43)
[2022-11-14 05:59] LABS: Anion Gap 12.1 (5-19); Blood Urea Nitrogen 26 mg/dL (8-23); Calcium 8.9 mg/dL (8.5-10.5); Carbon Dioxide 28 mmol/L (22-29); Chloride 102 mmol/L (98-107); Glucose 158 mg/dL (65-115); Osmolality Calculated 294 mOsm/kg (285-295); Potassium 4.1 mmol/L (3.5-5.1); Sodium 138 mmol/L (136-145)
[2022-11-14 06:00] LABS: C Reactive Protein 114.1 mg/L (0.0-4.9)
[2022-11-14 07:19] LABS: Vancomycin Trough 22.3 ug/mL (10-15)
[2022-11-14 08:09] LABS: Glucose Point of Care 140 mg/dL (70-110)
[2022-11-14] MEDS: metoprolol succinate ER (24 HR) 25 mg Tablet 12.5 MG PO (09:54)
[2022-11-14] MEDS: baclofen 10 mg Tablet 20 MG PO (09:54)
[2022-11-14] MEDS: tamsulosin 0.4 mg Capsule PO ×2 (09:54→17:27)
[2022-11-14] MEDS: sennosides-docusate Tablet 1 TAB PO (09:55)
[2022-11-14] MEDS: aspirin 81 mg EC Tablet PO (09:55)
[2022-11-14] MEDS: ketorolac 30 mg/mL INJ 15 MG IVP ×2 (09:57→21:22)
--- NOTE | 2022-11-14 10:10 | PM.PN ---
Subjective Subjective: Patient has been afebrile Cultures negative to date Most likely be discharged tomorrow Hyperemia of leg improving No overnight events Vitals/I&O/Wt Last Vital Signs Temp 97.8 F 11/14/22 07:31 Pulse 75 11/14/22 07:54 Resp 16 11/14/22 07:54 BP 152/77 11/14/22 07:31 Pulse Ox 95 11/14/22 07:54 O2 Del Method Room Air 11/14/22 07:54 11/13/22 11/14/22 11/14/22 22:59 06:59 14:59 Intake Total 640 / 2510 50 / 2560 120 / 120 Output Total 500 / 1300 200 / 1500 Balance 140 / 1210 -150 / 1060 120 / 120 Weight last 48 hrs Weight 113.398 kg Physical Exam Narrative: Hyperemia/erythema of right leg improved Plan cellulitis improving S1, S2 Currently on room air Abdomen soft EOMI, PERRLA GCS 15 Data 11/14/22 05:12 11/14/22 05:12 Micro: Microbiology 11/12/22 11:25 Blood Culture - Preliminary Blood NEGATIVE TO DATE 11/12/22 11:20 Blood Culture - Preliminary Blood NEGATIVE TO DATE A&P Assessment and plan (1) Cellulitis of leg, right: (2) Diabetic foot ulcer: (3) Sepsis: (4) Callus of foot: (5) Right hip pain: (6) S/p total knee replacement, bilateral: Plan Patient most likely be discharged tomorrow on p.o. antibiotics Sepsis related to right lower extremity cellulitis: Resolved Afebrile Continue IV antibiotics for next 24 hours FERNANDO noted: Discontinue IV Lasix We will give him Lasix 3-day tomorrow Full code Consistent carb diet Euglycemic Attestations Medical Necessity Statement*: Discharge tomorrow Diagnoses Cellulitis of leg, right L03.115 Diabetic foot ulcer E11.621; L97.509 Sepsis A41.9 Callus of foot L84 Right hip pain M25.551 S/p total knee replacement, bilateral Z96.653
[2022-11-14 10:57] LABS: Glucose Point of Care 215 mg/dL (70-110)
[2022-11-14] MEDS: insulin lispro 100 unit/1 mL SUBCUT ×2 (11:49→21:22)
[2022-11-14] MEDS: morphine IR 15 mg Tablet PO (14:36)
[2022-11-14] MEDS: vancomycin 1,500 MG/300 ML PIGGYBACK 200 MG IV (14:36)
[2022-11-14 16:50] LABS: Glucose Point of Care 138 mg/dL (70-110)
[2022-11-14 21:06] LABS: Glucose Point of Care 172 mg/dL (70-110)
[2022-11-14] MEDS: insulin glargine 100 units/1 mL 25 UNIT SUBCUT (21:21)
[2022-11-15] VITALS: BP 153/80; PULSE 74; RESP 15; TEMP 36.7; O2SAT 96
[2022-11-15] MEDS: piperacillin-tazobactam 3.375 GM in sodium chloride 0.9% (plus) 50 ML IV (01:02)
[2022-11-15 03:56] VITALS: BP 140/71; PULSE 70; RESP 17; TEMP 36.7; O2SAT 98
[2022-11-15 05:40] VITALS: PULSE 59
[2022-11-15 05:54] LABS: Anion Gap 13.1 (5-19); Blood Urea Nitrogen 21 mg/dL (8-23); Calcium 9.2 mg/dL (8.5-10.5); Carbon Dioxide 28 mmol/L (22-29); Chloride 103 mmol/L (98-107); Glucose 157 mg/dL (65-115); Osmolality Calculated 296 mOsm/kg (285-295); Potassium 4.1 mmol/L (3.5-5.1); Sodium 140 mmol/L (136-145)
[2022-11-15 06:45] LABS: Glucose Point of Care 138 mg/dL (70-110)
[2022-11-15 08:00] VITALS: BP 133/63; PULSE 68; RESP 17; TEMP 36.6; O2SAT 96
[2022-11-15 08:21] VITALS: PULSE 66; RESP 16; O2SAT 97
[2022-11-15] MEDS: vancomycin 1,500 MG/300 ML PIGGYBACK 200 MG IV (08:33)
--- NOTE | 2022-11-15 09:26 | PM.DCS ---
Discharge Providers Date of Admission: 11/12/22 12:14 Date of Discharge: November 15, 2022 Attending Provider at Admission: Vahe Ann MD Attending Provider at Discharge: Vahe Ann MD Primary Care Provider: TRUNG Todd Diagnoses at Discharge Discharge Diagnosis (1) Cellulitis of leg, right: Status: Acute (2) Diabetic foot ulcer: Status: Acute (3) Sepsis: Status: Acute (4) Callus of foot: Status: Acute (5) Right hip pain: Status: Acute (6) S/p total knee replacement, bilateral: Status: Acute Reason for Visit Reason for Visit: CHEST PAIN Hospital Course Hospital Course 72-year-old male who was admitted for management evaluation of sepsis related right lower extremity cellulitis, he does have a diabetic foot ulcer, CT scan did not show any abscess or necrotizing fasciitis presentation, patient remained febrile for about 24 hours and then responded well to use of broad-spectrum antibiotics, blood cultures remain negative, hyperemia of right lower extremity improved significantly, patient is endorsing feeling better, he is hemodynamically stable. He will discharge home on doxycycline and Augmentin 5-day course, he does follow-up with Dr. Perez for his diabetic foot ulcer. He is also does not need any debridement. There is no active drainage. Physical Exam Narrative: GCS 15 Pleasant Morbidly obese S1, S2 Doing well on room air Discharge Data Studies Completed and Pending Completed Studies During Hospitalization Category Date Time Status CT lower leg RT w con [id number] Routine Cat Scan 11/12/22 14:33 Completed XR chest 1V portable [id number] Stat Exams 11/12/22 10:34 Completed US venous duplex lower extremity RT [CV venous duplex Ultrasound 11/12/22 11:18 [place] [id number]] Stat Pending at discharge Category Date Time Status Blood Culture Stat Lab 11/12/22 11:25 Results Radiology Impressions Chest X-Ray 11/12/22 10:34 IMPRESSION: No acute findings. Venous Duplex 11/12/22 11:18 IMPRESSION: No evidence of deep vein thrombosis. Lower Extremity CT 11/12/22 14:33 IMPRESSION: 1. No evidence for osteomyelitis. MRI without and with contrast may be obtained if there is continuing clinical concern for osteomyelitis. If the patient has any contradiction for MRI, 3 phase bone scan in conjunction with white blood cell scan may be obtained. 2. Diffuse subcutaneous inflammation, mild at the right lower leg and moderate at the right foot suspicious for cellulitis. Small ulcer inferior to the 1st MTP joint. No evidence for an abscess. No soft tissue emphysema. 3. Incidental/nonacute findings are listed in the report. Laboratory Results WBC 7.02 10^3/uL (3.29-11.43) 11/14/22 05:12 RBC 4.08 10^6/uL (3.85-5.65) 11/14/22 05:12 Hgb 12.30 g/dL (11.27-16.99) 11/14/22 05:12 Hct 38.3 % (37-53) 11/14/22 05:12 MCV 93.9 fl (82-101) 11/14/22 05:12 MCH 30.1 pg (27-33) 11/14/22 05:12 MCHC 32.1 g/dL (30-55) 11/14/22 05:12 RDW 13.9 % (12.1-15.1) 11/14/22 05:12 Plt Count 196 10^3/cmm (157-399) 11/14/22 05:12 MPV 10.1 fL (7.4-10.4) 11/14/22 05:12 Neut % (Auto) 63.5 % 11/14/22 05:12 Lymph % (Auto) 22.9 % 11/14/22 05:12 [place] % (Auto) 9.7 % 11/14/22 05:12 Eos % (Auto) 2.6 % 11/14/22 05:12 Baso % (Auto) 0.7 % 11/14/22 05:12 Neut # (Auto) 4.46 10^3/uL (1.8-7.7) 11/14/22 05:12 Lymph # (Auto) 1.6 10^3/uL (0.8-4.8) 11/14/22 05:12 [place] # (Auto) 0.7 10^3/uL (0.2-0.9) 11/14/22 05:12 Eos # (Auto) 0.2 10^3/uL (0.0-0.8) 11/14/22 05:12 Baso # (Auto) 0.1 10^3/uL (0.0-0.1) 11/14/22 05:12 Nucleated RBC % (auto) 0 % 11/14/22 05:12 Nucleated RBCs # 0.0 /100WBC 11/14/22 05:12 Sodium 140 mmol/L (136-145) 11/15/22 04:51 Potassium 4.1 mmol/L (3.5-5.1) 11/15/22 04:51 Chloride 103 mmol/L (98-107) 11/15/22 04:51 Carbon Dioxide 28 mmol/L (22-29) 11/15/22 04:51 Anion Gap 13.1 (5-19) 11/15/22 04:51 BUN 21 mg/dL (8-23) 11/15/22 04:51 Creatinine 1.2 mg/dL (0.7-1.2) 11/15/22 04:51 GFR Calculation Not Reportable 11/15/22 04:51 Glucose 157 mg/dL (65-115) H 11/15/22 04:51 POC Glucose 138 mg/dL (70-110) H 11/15/22 06:39 Calculated Osmolality 296 mOsm/kg (285-295) H 11/15/22 04:51 Lactic Acid 2.6 mmol/L (0.5-2.2) H 11/12/22 10:40 Lactic Acid (Sepsis) 1.8 mmol/L (0.5-2.2) 11/12/22 15:12 Calcium 9.2 mg/dL (8.5-10.5) 11/15/22 04:51 Magnesium 2.1 mg/dL (1.7-2.3) 11/13/22 04:56 Total Bilirubin 0.4 mg/dL (0.15-1.2) 11/12/22 10:40 AST 21 U/L (0-40) 11/12/22 10:40 ALT 19 U/L (0-41) 11/12/22 10:40 Alkaline Phosphatase 61 U/L (40-130) 11/12/22 10:40 Troponin T Baseline 12 ng/L (0-15) 11/12/22 10:40 Troponin T 120 Minute 16.21 ng/L (0-15) H 11/12/22 12:48 Delta Troponin T 4.21 ABS# (0-10) 11/12/22 12:48 Troponin T Hi Sens 6Hr 16.89 ng/L (0-15) H 11/12/22 17:48 Troponin T Hi Sens 6Hr Delta 4.89 ng/L (0-12) 11/12/22 17:48 C-Reactive Protein 114.1 mg/L (0.0-4.9) H 11/14/22 05:12 Total Protein 6.7 g/dL (6.6-8.7) 11/12/22 10:40 Albumin 4.4 g/dL (3.5-5.2) 11/12/22 10:40 Globulin 2.3 g/dL (1.3-4.6) 11/12/22 10:40 Procalcitonin 0.13 ng/mL (0-0.5) 11/12/22 10:40 Urine Color Yellow (Yellow) 11/12/22 11:20 Urine Appearance Clear (CLEAR) 11/12/22 11:20 Urine pH 5 (5-7) 11/12/22 11:20 Ur Specific [place] 1.005 (1.005-1.030) 11/12/22 11:20 Urine Protein Neg (Negative) 11/12/22 11:20 Urine Glucose (UA) 4+ (Normal) H 11/12/22 11:20 Urine Ketones Negative (Negative) 11/12/22 11:20 Urine Blood Neg (Negative) 11/12/22 11:20 Urine Nitrate Negative (Negative) 11/12/22 11:20 Urine Bilirubin Neg (Negative) 11/12/22 11:20 Urine Urobilinogen Norm mg/dL (Negative) 11/12/22 11:20 Ur Leukocyte Esterase Negative (Negative) 11/12/22 11:20 Vancomycin Trough 22.3 ug/mL (10-15) H 11/14/22 06:50 Vitals Last Vital Signs Temp 97.8 F 11/15/22 08:00 Pulse 66 11/15/22 08:21 Resp 16 11/15/22 08:21 BP 133/63 11/15/22 08:00 Pulse Ox 97 11/15/22 08:21 O2 Del Method Room Air 11/15/22 08:21 Discharge Plan Discharge Patient Disposition: Home Condition: Stable Prescriptions: New doxycycline hyclate 100 mg tablet 100 mg PO BID 3 Days Qty: 6 0RF amoxicillin-pot clavulanate 875-125 mg tablet 1 tab PO BID Qty: 6 0RF Continued nitroglycerin 0.4 mg tablet, sublingual 0.4 mg sublingual Q5M PRN (Reason: chest pain) Qty: 25 0RF Rx Instructions: do not exceed 3 doses per episode hydrocodone-acetaminophen 7.5-325 mg tablet 1 tab PO TID PRN (Reason: Pain) aspirin [Adult Low Dose Aspirin] 81 mg tablet,delayed release (DR/EC) 81 mg PO DAILY mupirocin 2 % ointment 1 applic topical BID Qty: 22 1RF Rx Instructions: Apply to affected area until healed (DME) miscellaneous medical supply Misc See Rx Instructions .Route Qty: 1 0RF Rx Instructions: SI Belt As directed (DME) diabetic shoes with 3 inserts See Rx Instructions .Route .MEDSUPPLY Qty: 1 0RF Rx Instructions: custom molded accommodative orthotics with extra depth diabetic shoes metoprolol succinate 25 mg tablet extended release 24 hr 12.5 mg PO DAILY Qty: 45 3RF (DME) pen needle, diabetic [BD Ultra-Fine Mini Pen Needle] 31 gauge x 3/16 needle See Rx Instructions .ROUTE .COMPLEX Qty: 100 6RF Dose Instruction: USE WITH INSULIN INJECTION Rx Instructions: USE WITH INSULIN INJECTION gabapentin 600 mg tablet See Rx Instructions .ROUTE .COMPLEX Qty: 120 2RF Dose Instruction: TAKE ONE TABLET BY MOUTH IN THE MORNING, TAKE ONE TABLET AT NOON AND TAKE TWO TABLETS AT BEDTIME Rx Instructions: TAKE ONE TABLET BY MOUTH IN THE MORNING, TAKE ONE TABLET AT NOON AND TAKE TWO TABLETS AT BEDTIME fluticasone propionate 50 mcg/actuation spray,suspension See Rx Instructions .ROUTE .COMPLEX Qty: 32 6RF Dose Instruction: USE 2 SPRAYS IN EACH NOSTRIL TWICE DAILY Rx Instructions: USE 2 SPRAYS IN EACH NOSTRIL TWICE DAILY Levemir FlexPen 100 unit/mL (3 mL) insulin pen 25 unit SUBCUT BEDTIME baclofen 20 mg tablet 20 mg PO TID nortriptyline 25 mg capsule 25 mg PO BID famotidine 20 mg tablet 20 mg PO DAILY tamsulosin 0.4 mg capsule 0.4 mg PO BID buspirone 10 mg tablet 10 mg PO BID metformin 500 mg tablet extended release 24 hr 1,000 mg PO BID duloxetine 60 mg capsule,delayed release(DR/EC) 60 mg PO BID fenofibrate 160 mg tablet 160 mg PO DAILY levocetirizine 5 mg tablet 5 mg PO DAILY Victoza 3-Sincere 0.6 mg/0.1 mL (18 mg/3 mL) pen injector 1.8 mg SUBCUT DAILY Farxiga 10 mg tablet 10 mg PO DAILY Discontinued celecoxib 200 mg capsule 200 mg PO BID PRN (Reason: Pain) Discharge Orders: Discharge Order (Routine); Ordered 11/15/22 Ordered By: Vahe Ann Referrals: Susanna Brock FNP [Primary Care Provider] - Discharge Diet: Diabetic Discharge Activity: Increase activity as tolerated Patient Instructions: Opioid Safety Discharge Attestations Time Spent in Discharge Care*: greater than 30 min Quality Metrics Clinical Quality Measures [ No reported AMI, CVA or VTE this stay] Coding Level of Care Code Acute Code for Chg Fwd Diagnoses Cellulitis of leg, right L03.115 Diabetic foot ulcer E11.621; L97.509 Sepsis A41.9 Callus of foot L84 Right hip pain M25.551 S/p total knee replacement, bilateral Z96.653
[2022-11-15] MEDS: ketorolac 30 mg/mL INJ 15 MG IVP (10:21)
[2022-11-15] MEDS: tamsulosin 0.4 mg Capsule PO (10:31)
[2022-11-15] MEDS: aspirin 81 mg EC Tablet PO (10:31)
[2022-11-15] MEDS: metoprolol succinate ER (24 HR) 25 mg Tablet 12.5 MG PO (10:31)
--- NOTE | 2022-11-15 10:56 | PC.SOCIAL ---
Pg 2 IMM Explained to pt Pg 2 IMM. No questions voiced. Provided pt a copy. Initialed, dated, & timed a copy & placed in chart.
== END 2022-11-15 11:21 | disposition home or self-care (01) | DRG 603 ==
LOC: ER 11:22 → MEDSURG 13:28
PROVIDERS: Admitting Provider Internal Medicine; Emergency Provider Family Medicine; PCP Nurse Practitioner Family; Visit Provider Internal Medicine
DX: L03.115 Cellulitis of right lower limb (principal); E11.621 Type 2 diabetes mellitus with foot ulcer; L97.512 Non-pressure chronic ulcer of other part of right foot with fat layer exposed; Z79.891 Long term (current) use of opiate analgesic; Z79.84 Long term (current) use of oral hypoglycemic drugs; Z79.85 Long-term (current) use of injectable non-insulin antidiabetic drugs; Z96.653 Presence of artificial knee joint, bilateral; Z98.1 Arthrodesis status; M25.551 Pain in right hip
CPT/HCPCS: 36415; 36416; 71045; 73701; 80048; 80053; 80202; 81003; 82962; 83605; 83735; 84145; 84484; 85025; 86140; 87040; 93005; 93971; 96365; 96372; 99285; J1815; J1885; J1940; J2543; J3370; J7030; J7050; Q9967

== ENCOUNTER → 2022-11-22 11:52 | Outpatient (BNVA) | payer MEDICARE, MEDICAID, SELFPAY | PROVIDERS: PCP Nurse Practitioner Family; Visit Provider Nurse Practitioner Family | DX: R53.83 Other fatigue (principal); E11.9 Type 2 diabetes mellitus without complications; E78.5 Hyperlipidemia, unspecified; Z12.5 Encounter for screening for malignant neoplasm of prostate; E55.9 Vitamin D deficiency, unspecified | CPT/HCPCS: 80061; 82306; 82607; 83036; 83735; 84403; 84443; G0103 ==

== ENCOUNTER → 2022-12-05 12:05 | Outpatient (BNVA) | payer MEDICARE, MEDICAID, SELFPAY | PROVIDERS: PCP Nurse Practitioner Family; Visit Provider Internal Medicine | DX: I10 Essential (primary) hypertension (principal); E11.42 Type 2 diabetes mellitus with diabetic polyneuropathy; E11.621 Type 2 diabetes mellitus with foot ulcer; L97.512 Non-pressure chronic ulcer of other part of right foot with fat layer exposed; Z89.421 Acquired absence of other right toe(s); Z79.4 Long term (current) use of insulin; Z79.84 Long term (current) use of oral hypoglycemic drugs | CPT/HCPCS: 99213 ==

== ENCOUNTER → 2022-12-08 13:39 | Outpatient (BNVA) | payer MEDICARE, MEDICAID, SELFPAY | PROVIDERS: PCP Nurse Practitioner Family; Visit Provider Nurse Practitioner Family | DX: E11.52 Type 2 diabetes mellitus with diabetic peripheral angiopathy with gangrene (principal); E11.621 Type 2 diabetes mellitus with foot ulcer; L97.411 Non-pressure chronic ulcer of right heel and midfoot limited to breakdown of skin | CPT/HCPCS: 11042; 99213; A6210 ==

== ENCOUNTER → 2022-12-13 08:35 | Outpatient (BNVA) | payer MEDICARE, MEDICAID, SELFPAY | PROVIDERS: PCP Nurse Practitioner Family; Visit Provider Nurse Practitioner Family | DX: I96 Gangrene, not elsewhere classified (principal); L89.612 Pressure ulcer of right heel, stage 2 | CPT/HCPCS: 11042; A6210 ==

== ENCOUNTER → 2022-12-15 14:22 | Outpatient (BNVA) | payer MEDICARE, MEDICAID, SELFPAY | PROVIDERS: PCP Nurse Practitioner Family; Visit Provider Nurse Practitioner Family | DX: E11.52 Type 2 diabetes mellitus with diabetic peripheral angiopathy with gangrene (principal); E11.621 Type 2 diabetes mellitus with foot ulcer; L89.612 Pressure ulcer of right heel, stage 2 | CPT/HCPCS: 99212; A6210 ==

== ENCOUNTER → 2022-12-22 14:36 | Outpatient (BNVA) | payer MEDICARE, MEDICAID, SELFPAY | PROVIDERS: PCP Nurse Practitioner Family; Visit Provider Nurse Practitioner Family | DX: E11.52 Type 2 diabetes mellitus with diabetic peripheral angiopathy with gangrene (principal); E11.621 Type 2 diabetes mellitus with foot ulcer; L89.612 Pressure ulcer of right heel, stage 2 | CPT/HCPCS: 97597; A6210 ==

== ENCOUNTER → 2022-12-28 10:30 | Outpatient (BNVA) | payer MEDICARE, MEDICAID, SELFPAY | PROVIDERS: PCP Nurse Practitioner Family; Visit Provider Nurse Practitioner Family | DX: R79.89 Other specified abnormal findings of blood chemistry (principal) | CPT/HCPCS: 84403 ==

== ENCOUNTER → 2022-12-29 13:49 | Outpatient (BNVA) | payer MEDICARE, MEDICAID, SELFPAY | PROVIDERS: PCP Nurse Practitioner Family; Visit Provider Nurse Practitioner Family | DX: E11.52 Type 2 diabetes mellitus with diabetic peripheral angiopathy with gangrene (principal); E11.621 Type 2 diabetes mellitus with foot ulcer; L89.512 Pressure ulcer of right ankle, stage 2 | CPT/HCPCS: 97597; A6210 ==

== ENCOUNTER → 2023-01-05 14:50 | Outpatient (BNVA) | payer MEDICARE, MEDICAID, SELFPAY | PROVIDERS: PCP Nurse Practitioner Family; Visit Provider Nurse Practitioner Family | DX: E11.52 Type 2 diabetes mellitus with diabetic peripheral angiopathy with gangrene (principal); E11.622 Type 2 diabetes mellitus with other skin ulcer; L89.512 Pressure ulcer of right ankle, stage 2 | CPT/HCPCS: 97597; A6210 ==

== ENCOUNTER → 2023-01-19 14:05 | Outpatient (BNVA) | payer MEDICARE, MEDICAID, SELFPAY | PROVIDERS: PCP Nurse Practitioner Family; Visit Provider Nurse Practitioner Family | DX: E11.52 Type 2 diabetes mellitus with diabetic peripheral angiopathy with gangrene (principal); E11.621 Type 2 diabetes mellitus with foot ulcer; L89.612 Pressure ulcer of right heel, stage 2 | CPT/HCPCS: 11042; A6210 ==

== ENCOUNTER → 2023-01-26 10:58 | Outpatient (BNVA) | payer MEDICARE, MEDICAID, SELFPAY | PROVIDERS: PCP Nurse Practitioner Family; Visit Provider Nurse Practitioner Family | DX: Z09 Encounter for follow-up examination after completed treatment for conditions other than malignant neoplasm (principal); Z87.2 Personal history of diseases of the skin and subcutaneous tissue | CPT/HCPCS: 99212; A6212 ==

== ENCOUNTER → 2023-02-28 10:20 | Outpatient (BNVA) | payer MEDICARE, MEDICAID, SELFPAY | PROVIDERS: PCP Nurse Practitioner Family; Visit Provider Podiatrist Foot & Ankle Surgery | DX: E11.42 Type 2 diabetes mellitus with diabetic polyneuropathy; L60.3 Nail dystrophy; Z89.422 Acquired absence of other left toe(s); Z79.4 Long term (current) use of insulin; Z79.84 Long term (current) use of oral hypoglycemic drugs | CPT/HCPCS: 11721 ==

== ENCOUNTER → 2023-03-21 12:19 | Outpatient (BNVA) | payer MEDICARE, MEDICAID, SELFPAY | PROVIDERS: PCP Nurse Practitioner Family; Visit Provider Nurse Practitioner Family | DX: E11.65 Type 2 diabetes mellitus with hyperglycemia (principal); M54.50 Low back pain, unspecified; G89.29 Other chronic pain; E55.9 Vitamin D deficiency, unspecified; R79.89 Other specified abnormal findings of blood chemistry; I10 Essential (primary) hypertension; Z79.899 Other long term (current) drug therapy | CPT/HCPCS: 80053; 80061; 82306; 83036; 83735; 84403; 84443; 85025 ==

== ENCOUNTER → 2023-03-29 15:25 | Outpatient (BNVA) | payer MEDICARE, MEDICAID, SELFPAY | PROVIDERS: PCP Nurse Practitioner Family; Visit Provider Podiatrist Foot & Ankle Surgery | DX: E11.42 Type 2 diabetes mellitus with diabetic polyneuropathy; L60.3 Nail dystrophy; Z79.4 Long term (current) use of insulin; Z79.84 Long term (current) use of oral hypoglycemic drugs; Z89.422 Acquired absence of other left toe(s) | CPT/HCPCS: 99213 ==

== ENCOUNTER → 2023-04-12 12:46 | Outpatient (BNVA) | payer MEDICARE, MEDICAID, SELFPAY | PROVIDERS: PCP Nurse Practitioner Family; Visit Provider Podiatrist Foot & Ankle Surgery | DX: E11.42 Type 2 diabetes mellitus with diabetic polyneuropathy; Z79.4 Long term (current) use of insulin; Z79.84 Long term (current) use of oral hypoglycemic drugs; Z89.422 Acquired absence of other left toe(s) | CPT/HCPCS: 99213 ==

== ENCOUNTER → 2023-04-18 10:45 | Outpatient (BNVA) | payer MEDICARE, MEDICAID, SELFPAY | PROVIDERS: PCP Nurse Practitioner Family; Visit Provider Nurse Practitioner Family | DX: R79.89 Other specified abnormal findings of blood chemistry (principal); R53.83 Other fatigue | CPT/HCPCS: 84403; 85025 ==

== ENCOUNTER → 2023-07-04 08:50 | Outpatient (BNVA) | payer MEDICARE, MEDICAID, SELFPAY | PROVIDERS: PCP Nurse Practitioner Family; Visit Provider Podiatrist Foot & Ankle Surgery | DX: E11.42 Type 2 diabetes mellitus with diabetic polyneuropathy; Z89.412 Acquired absence of left great toe; Z79.84 Long term (current) use of oral hypoglycemic drugs; Z79.4 Long term (current) use of insulin | CPT/HCPCS: 99213 ==

== ENCOUNTER → 2023-07-11 10:22 | Outpatient (BNVA) | payer MEDICARE, OTHER, MEDICAID, SELFPAY | PROVIDERS: PCP Nurse Practitioner Family; Visit Provider Orthopaedic Surgery | DX: M54.42 Lumbago with sciatica, left side (principal); M54.41 Lumbago with sciatica, right side; G89.29 Other chronic pain; Z45.42 Encounter for adjustment and management of neurostimulator; Z01.812 Encounter for preprocedural laboratory examination | CPT/HCPCS: 36415; 72100; 80053; 81003; 83036; 85025; 99204 ==

== ENCOUNTER → 2023-07-14 10:46 | Outpatient (BNVA) | payer MEDICARE, OTHER, MEDICAID, SELFPAY | PROVIDERS: PCP Nurse Practitioner Family; Visit Provider Family Medicine | DX: Z01.818 Encounter for other preprocedural examination (principal) | CPT/HCPCS: 93005 ==

== ENCOUNTER 2023-08-04 06:18 | Day surgery (SDC) | payer OTHER, MEDICARE, MEDICAID, SELFPAY ==
[2023-08-04] VITALS (11 sets, daily range): BP systolic 114–147; BP diastolic 69–79; PULSE 76–87; RESP 15–18; TEMP 36.2–37.1; O2SAT 92–99; BMI 35.9
--- NOTE | 2023-08-04 06:37 | W.PM.OPSUD ---
Surgery/Procedure H&P Update DATE OF PROCEDURE: August 04, 2023 DATE H&P PERFORMED: 07/14/23 H&P UPDATE INFORMATION: I have reviewed H&P completed within last 30 days, I have examined patient prior to procedure and No changes to prior documentation PREOP DIAGNOSIS: Malfunctioning battery PLANNED PROCEDURE: Operation Date: 08/04/23 08:10 Proposed Procedures p Stimulator Battery Exchange(Not Applicable) - Ashu Villar, DO
[2023-08-04] MEDS: sodium chloride 0.9% 1,000 ML 30 ML IV (06:56)
[2023-08-04 06:57] LABS: Glucose Point of Care 134 mg/dL (70-110)
--- NOTE | 2023-08-04 07:19 | P.ANESASSM_ITS ---
Pre-Anesthetic Assessment Height/Weight: Height 1.78 m Weight 113.398 kg Temp Pulse Resp BP Pulse Ox O2 Del Method 98.7 F 77 18 132/77 93 Room Air 08/04/23 06:36 08/04/23 06:36 08/04/23 06:36 08/04/23 06:36 08/04/23 06:36 08/04/23 06:36 Preop Diagnosis: Malfunctioning battery Operation Date: 08/04/23 08:10 Proposed Procedures p Stimulator Battery Exchange(Not Applicable) - Ashu Villar DO Last intake: Intake Last Liquid Date 08/03/23 Last Liquid Time 23:30 Last Solid Date 08/03/23 Last Solid Time 17:30 Social No alcohol and No tobacco Airway Submandibular: within normal limits Cervical ROM: within normal limits Dentition: false Pulmonary None reported CV/HEM Coronary Artery Disease None reported Hepatic None reported GI Gastroesophageal Reflux Disease Metabolic Diabetes Mellitus Musc/skel Lower Back Pain and Osteoarthritis/DJD Anesthetic Plan ASA status: 3 Anesthesia: MAC Medications/Allergies Home Medications Medication Instructions Recorded Confirmed Last Taken Type aspirin 81 mg tablet,delayed 81 mg PO DAILY 03/07/19 08/03/23 07/30/23 History release (Adult Low Dose Aspirin) hydrocodone 7.5 mg-acetaminophen 1 tab PO TID PRN Pain 03/07/19 08/03/23 08/03/23 History 325 mg tablet miscellaneous medical supply #1 ea 09/17/21 07/12/23 Unknown Rx diabetic shoes with 3 inserts #1 ea 10/31/22 07/12/23 Unknown Rx pen needle, diabetic 31 gauge x ##100 12/13/22 07/12/23 Unknown Rx 3/16 (BD Ultra-Fine Mini Pen Needle) pen needle, diabetic 32 gauge x #100 ea 12/13/22 07/12/23 Unknown Rx 5/32 (BD Ultra-Fine Erma Pen Needle) flash glucose scanning reader #1 ea 01/17/23 07/12/23 Unknown Rx (FreeStyle Jim[place] 14 Day [place]) flash glucose sensor (FreeStyle #2 ea 01/17/23 07/12/23 Unknown Rx Jimbo 14 Day Sensor kit) lidocaine 5 % topical patch 1 patch topical DAILY #30 ea 03/21/23 08/03/23 Unk nown Rx metoprolol succinate 25 mg 12.5 mg (1/2 x 25 mg) PO DAILY #45 04/18/23 08/03/23 08/04/23 04:30 Rx tablet,extended release 24 hr tabs testosterone cypionate 200 mg/mL 100 mg (0.5 mL) SUBCUT .[id number] #2 05/18/23 08/03/23 07/20/23 Rx intramuscular oil mL syringe with needle 3 mL 23 x 1 #2 ea 05/22/23 07/12/23 Unknown Rx (BD Luer-Marly Syringe) ergocalciferol (vitamin D2) 1,250 1,250 mcg PO .weekly #12 caps 06/21/23 08/03/23 07/28/23 Rx mcg (50,000 unit) capsule nitroglycerin 0.4 mg sublingual 0.4 mg sublingual Q5M PRN chest 07/12/23 08/03/23 Unknown Rx tablet pain #25 tabs baclofen 20 mg tablet 20 mg PO TID 08/03/23 08/03/23 08/03/23 History buspirone 10 mg tablet 10 mg PO BID 08/03/23 08/03/23 08/03/23 History celecoxib 200 mg capsule 200 mg PO BID 08/03/23 08/03/23 07/30/23 History dapagliflozin propanediol 10 mg 10 mg PO DAILY 08/03/23 08/03/23 07/31/23 History tablet (Farxiga) duloxetine 60 mg capsule,delayed 60 mg PO BID 08/03/23 08/03/23 08/03/23 History release famotidine 20 mg tablet 20 mg PO DAILY 08/03/23 08/03/23 08/02/23 History fenofibrate 160 mg tablet 160 mg PO DAILY 08/03/23 08/03/23 08/03/23 History fluticasone propionate 50 2 spray intranasal BID 08/03/23 08/03/23 08/03/23 History mcg/actuation nasal spray,suspension gabapentin 600 mg tablet 600 mg PO TID 08/03/23 08/03/23 08/03/23 History insulin degludec 200 unit/mL (3 20 unit SUBCUT DAILY 08/03/23 08/03/23 08/03/23 History mL) subcutaneous pen (Tresiba FlexTouch U-200 insulin) levocetirizine 5 mg tablet 5 mg PO DAILY 08/03/23 08/03/23 08/03/23 History metformin 500 mg tablet,extended 1,000 mg PO BID 08/03/23 08/03/23 08/03/23 History release 24 hr nortriptyline 25 mg capsule 25 mg PO BID 08/03/23 08/03/23 08/03/23 History semaglutide 0.25 mg or 0.5 mg (2 0.25 mg SUBCUT Q7D 08/03/23 08/03/23 07/22/23 History mg/3 mL) subcutaneous pen injector (UpCounsel) tamsulosin 0.4 mg capsule 0.4 mg PO BID 08/03/23 08/03/23 08/03/23 History Allergies Allergy/AdvReac Type Severity Reaction Status Date / Time sulfamethoxazole Allergy Intermediate itching/sti Verified 07/14/23 11:07 [From Bactrim] nging trimethoprim [From Bactrim] Allergy Intermediate itching/sti Verified 07/14/23 11:07 nging oxycodone Allergy Unknown Unknown Verified 07/14/23 11:07 topiramate [From Topamax] Allergy Unknown Verified 07/14/23 11:07 Current Medications Generic Name Dose Route Start Last Admin Trade Name Freq PRN Reason Stop Dose Admin Sodium Chloride 1,000 mls @ 30 mls/hr 08/04/23 06:30 08/04/23 06:56 Sodium Chloride 0.9% IV 08/05/23 06:29 30 mls/hr .Q24H CARA Administration PFSH Anesthesia Medical History Sepsis Diabetic foot ulcer Cellulitis of leg, right Non-pressure chronic ulcer of other part of right foot with fat layer exposed Callus of foot Decreased hearing of both ears Anxiety and depression Hyperlipidemia Right hip pain Callus of foot Carotid bruit Macrocytosis Paresthesia Cervical radiculopathy Right thyroid nodule Spinal cord stimulator status 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 Sinus tachycardia Shortness of breath Intervertebral disc disorder HTN (hypertension) Insomnia GERD (gastroesophageal reflux disease) Diabetes mellitus Surgical History History of colonoscopy Status post amputation of toe S/P lumbar fusion S/P shoulder surgery S/P carpal tunnel release S/P knee replacement Bilateral S/p total knee replacement, bilateral Family History Other Cancer Diabetes Heart disease Social History Smoking and tobacco/nicotine status: never used tobacco/nicotine Second hand smoke exposure: Yes Alcohol intake: never Substance/Drug Use: never Caregiver/support person: Yes Lives independently: Yes Household members: spouse Marital status: service: No Current occupational status: retired Current gender identity: Male Special kellee needs: No Data Anesthesia Cardiac Studies: No Data to Display
[2023-08-04] MEDS: ceFAZolin 2,000 MG in sodium chloride 0.9% (plus) 50 ML 100 MG IV (07:58)
[2023-08-04] MEDS: lidocaine-epi 1% 20 mL INJ 10 ML INJECTION (08:30)
--- NOTE | 2023-08-04 08:52 | P.OP_ITS ---
Operative Report Date of procedure: August 04, 2023 Pre-op diagnosis: Failed battery for neurostimulator Post-op diagnosis: same Procedure done: Battery exchange for neurostimulator Surgeon: Ashu Villar DO Estimated blood loss (mL): 5 Procedure: Battery exchange for neurostimulator Patient brought the operative suite after undergoing anesthesia patient was placed in a prone position. All areas impingement well-padded. Patient's prepped draped sterile fashion. Skin incision made over the previous skin incision. The battery is identified removed the wire was taken out. The battery was brought into the field wire was inserted into the new battery and locked in position using the [employer] rep he identified that it was working. The battery was then placed back into the patient. And the wound was closed up with Vicryl and Monocryl suture. Sterile dressings were applied patient transferred to the PACU in stable addition.
[2023-08-04 09:19] LABS: Glucose Point of Care 139 mg/dL (70-110)
--- NOTE | 2023-08-04 11:53 | ANE.PACU2 ---
Inpatient post-anesthesia follow up: Airway intact: Yes Vital signs: Temperature 97.4 F Pulse Rate 82 Respiratory Rate 18 Blood Pressure 114/69 Pulse Oximetry 92 Oxygen Delivery Me thod Room Air Oxygen Flow Rate 6 Fraction of Inspir ed Oxygen Hydration adequate: Yes Nausea and vomiting: No Pain level: 2 Mental status: Baseline
== END 2023-08-04 10:25 | disposition home or self-care (01) ==
PROVIDERS: PCP Nurse Practitioner Family; Visit Provider Orthopaedic Surgery
PROC: (CPT 63685; principal; 2023-08-04 08:10)
DX: T85.113A Breakdown (mechanical) of implanted electronic neurostimulator, generator, initial encounter (principal); Y79.2 Prosthetic and other implants, materials and accessory orthopedic devices associated with adverse incidents; I25.10 Atherosclerotic heart disease of native coronary artery without angina pectoris; K21.9 Gastro-esophageal reflux disease without esophagitis; E11.9 Type 2 diabetes mellitus without complications; M19.90 Unspecified osteoarthritis, unspecified site; Z79.82 Long term (current) use of aspirin; Z79.4 Long term (current) use of insulin; E11.622 Type 2 diabetes mellitus with other skin ulcer; E78.5 Hyperlipidemia, unspecified; I10 Essential (primary) hypertension
CPT/HCPCS: 63685; 36416; 82962; C1820; J0690; J1100; J2371; J2405; J2704; J2710; J3010; J3490; J7030

== ENCOUNTER → 2023-08-21 08:39 | Outpatient (BNVA) | payer MEDICARE, MEDICAID, OTHER, SELFPAY | PROVIDERS: PCP Nurse Practitioner Family; Visit Provider Nurse Practitioner Family | DX: I10 Essential (primary) hypertension (principal); R79.89 Other specified abnormal findings of blood chemistry; R53.83 Other fatigue; Z79.899 Other long term (current) drug therapy | CPT/HCPCS: 80061; 82306; 82607; 84403; 85025 ==

== ENCOUNTER → 2023-09-12 07:18 | Outpatient (BNVA) | payer MEDICARE, MEDICAID, OTHER, SELFPAY | PROVIDERS: PCP Nurse Practitioner Family; Visit Provider Orthopaedic Surgery | DX: Z48.89 Encounter for other specified surgical aftercare (principal) | CPT/HCPCS: 72100; 99024 ==

== ENCOUNTER → 2023-09-27 14:09 | Outpatient (BNVA) | payer MEDICARE, MEDICAID, SELFPAY | PROVIDERS: PCP Nurse Practitioner Family; Visit Provider Podiatrist Foot & Ankle Surgery | DX: E11.42 Type 2 diabetes mellitus with diabetic polyneuropathy; L84 Corns and callosities; L60.3 Nail dystrophy; Z89.412 Acquired absence of left great toe; Z79.4 Long term (current) use of insulin; Z79.84 Long term (current) use of oral hypoglycemic drugs | CPT/HCPCS: 11056; 11721 ==

== ENCOUNTER → 2023-10-19 11:10 | Outpatient (BNVA) | payer MEDICARE, MEDICAID, SELFPAY | PROVIDERS: PCP Nurse Practitioner Family; Visit Provider Nurse Practitioner Family | DX: E11.65 Type 2 diabetes mellitus with hyperglycemia (principal); R79.89 Other specified abnormal findings of blood chemistry | CPT/HCPCS: 80053; 82607; 83036; 84403; 85025 ==

== ENCOUNTER → 2023-12-04 12:36 | Outpatient (BNVA) | payer MEDICARE, MEDICAID, SELFPAY | PROVIDERS: PCP Nurse Practitioner Family; Visit Provider Internal Medicine | DX: I10 Essential (primary) hypertension (principal); F17.220 Nicotine dependence, chewing tobacco, uncomplicated | CPT/HCPCS: 99213 ==

== ENCOUNTER → 2023-12-27 14:25 | Outpatient (BNVA) | payer MEDICARE, MEDICAID, SELFPAY | PROVIDERS: PCP Nurse Practitioner Family; Visit Provider Podiatrist Foot & Ankle Surgery | DX: E11.42 Type 2 diabetes mellitus with diabetic polyneuropathy; L60.3 Nail dystrophy; L84 Corns and callosities; Z79.4 Long term (current) use of insulin; Z79.84 Long term (current) use of oral hypoglycemic drugs; Z89.422 Acquired absence of other left toe(s) | CPT/HCPCS: 11056; 11721 ==

== ENCOUNTER → 2024-01-01 11:21 | Outpatient (BNVA) | payer MEDICARE, MEDICAID, SELFPAY | PROVIDERS: PCP Nurse Practitioner Family; Visit Provider Specialist | DX: M16.11 Unilateral primary osteoarthritis, right hip | CPT/HCPCS: 73502; 99214 ==

== ENCOUNTER → 2024-02-02 11:58 | Outpatient (BNVA) | payer MEDICARE, MEDICAID, SELFPAY | PROVIDERS: PCP Nurse Practitioner Family; Visit Provider Specialist | DX: M16.11 Unilateral primary osteoarthritis, right hip (principal) | CPT/HCPCS: 20610; 77002 ==

== ENCOUNTER → 2024-02-08 10:36 | Outpatient (BNVA) | payer MEDICARE, MEDICAID, SELFPAY | PROVIDERS: PCP Nurse Practitioner Family; Visit Provider Nurse Practitioner Family | DX: E11.65 Type 2 diabetes mellitus with hyperglycemia (principal); Z12.5 Encounter for screening for malignant neoplasm of prostate; Z79.899 Other long term (current) drug therapy | CPT/HCPCS: 80053; 80061; 82306; 83036; 84403; 85025; G0103 ==

== ENCOUNTER → 2024-04-02 10:14 | Outpatient (BNVA) | payer MEDICARE, MEDICAID, SELFPAY | PROVIDERS: PCP Nurse Practitioner Family; Visit Provider Podiatrist Foot & Ankle Surgery | DX: E11.42 Type 2 diabetes mellitus with diabetic polyneuropathy (principal); L60.3 Nail dystrophy; L84 Corns and callosities; R23.4 Changes in skin texture; Z89.422 Acquired absence of other left toe(s); Z79.4 Long term (current) use of insulin; Z79.84 Long term (current) use of oral hypoglycemic drugs | CPT/HCPCS: 11056; 11721; 99213 ==

== ENCOUNTER → 2024-05-09 11:25 | Outpatient (BNVA) | payer MEDICARE, MEDICAID, SELFPAY | PROVIDERS: PCP Nurse Practitioner Family; Visit Provider Nurse Practitioner Family | DX: E11.65 Type 2 diabetes mellitus with hyperglycemia (principal); R79.89 Other specified abnormal findings of blood chemistry | CPT/HCPCS: 80053; 80061; 82040; 82607; 83036; 84270; 84403; 84443; 85025 ==

== ENCOUNTER 2024-05-17 13:19 | Outpatient (CLI) | payer MEDICARE, MEDICAID, SELFPAY ==
--- NOTE | 2024-05-17 13:30 | US_ITS ---
WS: [id number] INDICATION: Lymphadenopathy TECHNIQUE: Ultrasound soft tissue area of concern FINDINGS: Ultrasound soft tissue of concern behind the right ear In the area of concern, there is a heterogeneous lobulated lymph node measuring approximately 1.6 x 1.5 x 1.3 cm with associated vascularity. This has a heterogeneous somewhat abnormal appearance and recommend further evaluation with contrast-enhanced neck CT. In a patient this age recommend further evaluation with contrast-enhanced neck CT to evaluate for additional enlarged lymph nodes and for better anatomic detail to exclude neoplasm US/US soft tissue head neck [id number] IMPRESSION: 1. Recommend further evaluation with contrast-enhanced neck CT
== END 2024-05-17 13:20 | disposition home or self-care (01) ==
LOC: RAD 13:20
PROVIDERS: PCP Nurse Practitioner Family; Visit Provider Nurse Practitioner Family
DX: R59.1 Generalized enlarged lymph nodes (principal)
CPT/HCPCS: 76536

== ENCOUNTER → 2024-05-22 09:00 | Outpatient (BNVA) | payer MEDICARE, MEDICAID, SELFPAY | PROVIDERS: PCP Nurse Practitioner Family; Visit Provider Student in an Organized Health Care Education/Training Program | DX: M16.11 Unilateral primary osteoarthritis, right hip (principal); E11.9 Type 2 diabetes mellitus without complications | CPT/HCPCS: 73502; 99204 ==

== ENCOUNTER 2024-05-29 16:50 | Outpatient (CLI) | payer MEDICARE, MEDICAID, SELFPAY ==
--- NOTE | 2024-05-29 17:15 | CT_ITS ---
WS: [id number] CT RIGHT hip for MARI procedure HISTORY: djd hip Date: 05/29/2024 4:51 PM COMPARISON: None available. TECHNIQUE: Protocol for MARI total hip replacement has been obtained. This includes axial imaging from the hip joint through the knee joint. DLP: 928 FINDINGS: Advanced arthritis RIGHT hip with subchondral cystic change and sclerosis involving the femoral head and acetabulum. Pedicle screw fixation lower lumbar spine with laminectomy defects. LEFT SI joint fixation. Fat-containing LEFT inguinal hernia. Postoperative changes bilateral TKAs. CT/CT hip RT [facility] [id number] IMPRESSION: CT imaging provided for MARI robotic total hip replacement.
== END 2024-05-29 16:51 | disposition home or self-care (01) ==
PROVIDERS: PCP Nurse Practitioner Family; Visit Provider Student in an Organized Health Care Education/Training Program
DX: M16.11 Unilateral primary osteoarthritis, right hip (principal); R93.7 Abnormal findings on diagnostic imaging of other parts of musculoskeletal system; Z98.890 Other specified postprocedural states; M96.89 Other intraoperative and postprocedural complications and disorders of the musculoskeletal system; K40.90 Unilateral inguinal hernia, without obstruction or gangrene, not specified as recurrent; Z96.89 Presence of other specified functional implants
CPT/HCPCS: 73700

== ENCOUNTER 2024-06-03 07:43 | Outpatient (CLI) | payer MEDICARE, MEDICAID, SELFPAY ==
--- NOTE | 2024-06-03 08:00 | CT_ITS ---
WS: [id number] CT NECK TECHNIQUE: Contrast-enhanced CT of the neck with coronal and sagittal reformatted images. CLINICAL INFORMATION: R59.0 - Localized enlarged lymph nodes COMPARISON: Ultrasound 05/17/2024 DLP: 210.[address] scans at [facility] use at least one of these dose optimization techniques: automated exposure control; mA and/or kV adjustment per patient size (includes targeted exams where dose is matched to clinical indication); or iterative reconstruction. FINDINGS: Heterogeneously enhancing nodule in the tail of the RIGHT parotid gland corresponds to the finding seen on the recent ultrasound. This measures approximately 1.9 x 1.5 cm suspicious for parotid neoplasm. This is deep to the palpable marker. Recommend ENT consultation. LEFT parotid gland is normal. Normal submandibular glands. RIGHT thyroid nodule measuring 1.9 x 1.0 cm. Polypoid soft tissue thickening with mineralization in the sphenoid sinus. This may be due to chronic inspissated sinusitis. Normal posterior nasopharynx. Normal parapharyngeal fat. Normal Ballinger tonsils. No cervical lymphadenopathy. Moderate spondylitic changes cervical spine. Straightening of the normal cervical lordosis. CT/CT neck w con* [id number] IMPRESSION: 1. Heterogeneously enhancing nodule in RIGHT parotid tail suspicious for parot id neoplasm measuring 1.9 x 1.5 cm. Recommend ENT consultation. 2. Polypoid soft tissue thickening in the sphenoid sinus with mineralization. This may be sequelae from chronic sinusitis 3. Mucosal thickening in the RIGHT mastoid air cells. 4. RIGHT thyroid nodule measuring 1.9 x 1.0 cm
[2024-06-03] MEDS: iohexol 350 mg/mL 500 mL Btl (per mL) IV (08:29)
== END 2024-06-03 07:44 | disposition home or self-care (01) ==
PROVIDERS: PCP Nurse Practitioner Family; Visit Provider Nurse Practitioner Family
DX: R59.0 Localized enlarged lymph nodes (principal); R93.89 Abnormal findings on diagnostic imaging of other specified body structures; M79.89 Other specified soft tissue disorders; H74.8X1 Other specified disorders of right middle ear and mastoid; E04.1 Nontoxic single thyroid nodule; M47.892 Other spondylosis, cervical region
CPT/HCPCS: 70491

== ENCOUNTER → 2024-06-18 08:29 | Outpatient (BNVA) | payer MEDICARE, MEDICAID, SELFPAY | PROVIDERS: PCP Nurse Practitioner Family; Visit Provider Family Medicine | DX: Z01.818 Encounter for other preprocedural examination (principal) | CPT/HCPCS: 80048; 81003; 85025; 93005 ==

== ENCOUNTER 2024-06-27 11:02 | Observation (INO) | payer MEDICARE, MEDICAID, SELFPAY ==
[2024-06-27] VITALS (18 sets, daily range): BP systolic 90–121; BP diastolic 50–71; PULSE 90–108; RESP 14–18; TEMP 36.5–37.2; O2SAT 92–99; BMI 35.6
--- NOTE | 2024-06-27 05:52 | ANES.PREANE2 ---
Pre-Anesthetic Assessment Height/Weight: Height 5 ft 10 in Preop Diagnosis: Hip arthritis Operation Date: 06/27/24 07:00 Proposed Procedures p total hip arthroplasty with MARI-posterior approach(Right) - Kenn Booker, DO Was Beta Sammie taken within 24 hours: Yes Was Clonidine taken within 24 hours: N/A Social No alcohol and No tobacco Exam alert, oriented x 3, clear to auscultation bilaterally and regular rate & rhythm Airway Submandibular: within normal limits Cervical ROM: within normal limits Mallampati: Class III Comments: Comments: Edentulous Anesthetic Plan ASA status: 3 Anesthesia: General Other: No prior issues with anesthesia NPO since yesterday evening History of insulin-dependent DM, chronic semaglutide. Last taken 06/20/2024 Hypertension on metoprolol GERD, on Pepcid Labs reviewed from 06/18/2024 and acceptable for procedure today EKG showing sinus rhythm with first-degree AV block and occasional PVCs Plan for general anesthesia Medications/Allergies Home Medications ?Medication ?Instructions ?Recorded ?Confirmed ?Last Taken ?Type aspirin 81 mg tablet,delayed 81 mg PO DAILY 03/07/19 06/26/24 06/22/24 History release (Adult Low Dose Aspirin) miscellaneous medical supply #1 ea 09/17/21 06/04/24 Unknown Rx diabetic shoes with 3 inserts #1 ea 10/31/22 06/04/24 Unknown Rx lidocaine 5 % topical patch 1 patch topical DAILY #30 ea 03/21/23 06/26/24 Unknown Rx syringe with needle 3 mL 23 x 1 #2 ea 05/22/23 06/04/24 Unknown Rx (BD Luer-Marly Syringe) nitroglycerin 0.4 mg sublingual 0.4 mg sublingual Q5M PRN chest 07/12/23 06/26/24 Unknown Rx tablet pain #25 tabs cyanocobalamin (vitamin B-12) 1,000 mcg IM DAILY 1 week #10 mL 10/25/23 06/26/24 06/25/24 Rx 1,000 mcg/mL injection solution pen needle, diabetic 31 gauge x #1,200 ea 12/15/23 06/04/24 Unknown Rx 3/16 (BD Ultra-Fine Mini Pen Needle) pen needle, diabetic 32 gauge x #100 ea 12/15/23 06/04/24 Unknown Rx 5/32 (BD Ultra-Fine Erma Pen Needle) metoprolol succinate 25 mg 12.5 mg (1/2 x 25 mg) PO DAILY #45 02/08/24 06/26/24 06/25/24 Rx tablet,extended release 24 hr tabs mupirocin 2 % topical ointment 1 applic topical BID #15 grams 04/02/24 06/26/24 Unknown Rx testosterone cypionate 200 mg/mL 150 mg (0.75 mL) SUBCUT .[id number] 04/11/24 06/26/24 06/19/24 Rx intramuscular oil #2 mL flash glucose scanning reader #1 ea 05/09/24 06/04/24 Unknown Rx (FreeStyle Jimbo 14 Day [place]) flash glucose sensor (FreeStyle #2 ea 05/09/24 06/04/24 Unknown Rx Jimbo 14 Day Sensor kit) hydrocodone 10 mg-acetaminophen 1 tab PO Q8H PRN Pain 05/09/24 06/26/24 06/26/24 History 325 mg tablet baclofen 20 mg tablet 20 mg PO TID 06/26/24 06/26/24 06/26/24 History buspirone 10 mg tablet 10 mg PO BID 06/26/24 06/26/24 06/26/24 History celecoxib 200 mg capsule 200 mg PO BID 06/26/24 06/26/24 06/22/24 History dapagliflozin propanediol 10 mg 10 mg PO DAILY 06/26/24 06/26/24 06/23/24 History tablet (Farxiga) duloxetine 60 mg capsule,delayed 60 mg PO BID 06/26/24 06/26/24 06/26/24 History release ergocalciferol (vitamin D2) 1,250 1,250 mcg PO .WEEKLY 06/26/24 06/26/24 06/19/24 History mcg (50,000 unit) capsule famotidine 20 mg tablet 20 mg PO DAILY 06/26/24 06/26/24 06/25/24 History fenofibrate 160 mg tablet 160 mg PO DAILY 06/26/24 06/26/24 06/25/24 History fluticasone propionate 50 2 spray intranasal BID 06/26/24 06/26/24 06/26/24 History mcg/actuation nasal spray,suspension gabapentin 600 mg tablet 600 mg PO TID 06/26/24 06/26/2425 History insulin degludec 200 unit/mL (3 20 unit SUBCUT DAILY 06/26/24 06/26/24 06/25/24 History mL) subcutaneous pen (Tresiba FlexTouch U-200 insulin) levocetirizine 5 mg tablet 5 mg PO DAILY 06/26/24 06/26/24 06/25/24 History metformin 500 mg tablet,extended 1,000 mg PO BID 06/26/24 06/26/24 06/25/24 History release 24 hr nortriptyline 25 mg capsule 25 mg PO BID 06/26/24 06/26/24 06/25/24 History semaglutide 0.25 mg or 0.5 mg (2 0.5 mg SUBCUT .WEEKLY 06/26/24 06/26/24 06/20/24 History mg/3 mL) subcutaneous pen injector (Ozempic) tamsulosin 0.4 mg capsule 0.5 mg PO BID 06/26/24 06/26/24 06/25/24 History Allergies Allergy/AdvReac Type Severity Reaction Status Date / Time sulfamethoxazole (From Allergy Intermediate itching/sti Verified 06/26/24 09:26 Bactrim) nging trimethoprim (From Bactrim) Allergy Intermediate itching/sti Verified 06/26/24 09:26 nging oxycodone Allergy Unknown Unknown Verified 06/26/24 09:26 topiramate (From Topamax) Allergy Unknown Verified 06/26/24 09:26 [facility] Anesthesia Medical History Parotid nodule Lymphadenopathy of right cervical region Low vitamin B12 level Sepsis Diabetic foot ulcer Cellulitis of leg, right Non-pressure chronic ulcer of other part of right foot with fat layer exposed Callus of foot Decreased hearing of both ears Anxiety and depression Hyperlipidemia Right hip pain Callus of foot Carotid bruit Macrocytosis Paresthesia Cervical radiculopathy Right thyroid nodule Spinal cord stimulator status 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 Sinus tachycardia Shortness of breath Intervertebral disc disorder HTN (hypertension) Insomnia GERD (gastroesophageal reflux disease) Diabetes mellitus Surgical History History of colonoscopy Status post amputation of toe S/P lumbar fusion S/P shoulder surgery S/P carpal tunnel release S/P knee replacement Bilateral S/p total knee replacement, bilateral Family History Other Cancer Diabetes Heart disease Social History Smoking and tobacco/nicotine status: never used tobacco/nicotine Second hand smoke exposure: Yes Alcohol intake: never Substance/Drug Use: never Caregiver/support person: Yes Lives independently: Yes Household members: spouse Marital status: service: No Current occupational status: retired Current gender identity: Male Special kellee needs: No Data Anesthesia 06/27/24 06:08 06/27/24 06:08
[2024-06-27] MEDS: sodium chloride 0.9% 1,000 ML 30 ML IV (06:16)
[2024-06-27] MEDS: acetaminophen 1,000 MG/100 ML PIGGYBACK 400 MG IV ×3 (06:17→22:33)
[2024-06-27] MEDS: ketorolac 30 mg/mL INJ IVP (06:17)
[2024-06-27 06:22] LABS: Glucose Point of Care 127 mg/dL (70-110)
[2024-06-27 06:24] LABS: Basophils # 0.1 10^3/uL (0.0-0.1); Basophils % 0.9 %; Eosinophils # 0.2 10^3/uL (0.0-0.8); Eosinophils % 3.9 %; Lymphocytes # 1.4 10^3/uL (0.8-4.8); Lymphocytes % 24.1 %; Mean Corpuscular HGB Conc 32.5 g/dL (30-55); Mean Corpuscular Hemoglobin 29.5 pg (27-33); Mean Corpuscular Volume 90.9 fl (82-101); Mean Platelet Volume 9.9 fL (7.4-10.4); Monocytes # 0.7 10^3/uL (0.2-0.9); Monocytes % 11.6 %; Neutrophils # 3.29 10^3/uL (1.8-7.7); Neutrophils % 58.8 %; Nucleated Red Blood Cells % 0 %; Platelet Count 229 10^3/cmm (157-399); Red Blood Count 5.28 10^6/uL (3.85-5.65); Red Cell Distribution Width 13.6 % (12.1-15.1)
[2024-06-27 06:49] LABS: Blood Urea Nitrogen 19 mg/dL (8-23); Calcium 9.5 mg/dL (8.5-10.5); Carbon Dioxide 25 mmol/L (22-29); Chloride 104 mmol/L (98-107); Creatinine Clr Calc Pharmacy 90.4408; Glucose 128 mg/dL (65-115); Osmolality Calculated 296 mOsm/kg (285-295); Sodium 141 mmol/L (136-145)
[2024-06-27 06:54] LABS: Anion Gap 16.3 (5-19); Potassium 4.3 mmol/L (3.5-5.1)
--- NOTE | 2024-06-27 06:57 | W.PM.OPSFHP ---
Same Day Surgery H&P Indication for Procedure/HPI DATE OF PROCEDURE: June 27, 2024 CHIEF COMPLAINT/INDICATIONFOR SURGICAL PROCEDURE: Right hip degenerative joint disease PREOP DIAGNOSIS: Right hip degenerative joint disease PLANNED PROCEDURE: Operation Date: 06/27/24 07:00 Proposed Procedures p total hip arthroplasty with NEGRO-posterior approach(Right) - Kenn Booker, DO Medications/Allergies* Home Medications ?Medication ?Instructions ?Recorded ?Confirmed ?Type aspirin 81 mg tablet,delayed 81 mg PO DAILY 03/07/19 06/26/24 History release (Adult Low Dose Aspirin) hydrocodone 10 mg-acetaminophen 1 tab PO Q8H PRN Pain 05/09/24 06/26/24 History 325 mg tablet baclofen 20 mg tablet 20 mg PO TID 06/26/24 06/26/24 History buspirone 10 mg tablet 10 mg PO BID 06/26/24 06/26/24 History celecoxib 200 mg capsule 200 mg PO BID 06/26/24 06/26/24 History dapagliflozin propanediol 10 mg 10 mg PO DAILY 06/26/24 06/26/24 History tablet (Farxiga) duloxetine 60 mg capsule,delayed 60 mg PO BID 06/26/24 06/26/24 History release ergocalciferol (vitamin D2) 1,250 1,250 mcg PO .WEEKLY 06/26/24 06/26/24 History mcg (50,000 unit) capsule famotidine 20 mg tablet 20 mg PO DAILY 06/26/24 06/26/24 History fenofibrate 160 mg tablet 160 mg PO DAILY 06/26/24 06/26/24 History fluticasone propionate 50 2 spray intranasal BID 06/26/24 06/26/24 History mcg/actuation nasal spray,suspension gabapentin 600 mg tablet 600 mg PO TID 06/26/24 06/26/24 History insulin degludec 200 unit/mL (3 20 unit SUBCUT DAILY 06/26/24 06/26/24 History mL) subcutaneous pen (Tresiba FlexTouch U-200 insulin) levocetirizine 5 mg tablet 5 mg PO DAILY 06/26/24 06/26/24 History metformin 500 mg tablet,extended 1,000 mg PO BID 06/26/24 06/26/24 History release 24 hr nortriptyline 25 mg capsule 25 mg PO BID 06/26/24 06/26/24 History semaglutide 0.25 mg or 0.5 mg (2 0.5 mg SUBCUT .WEEKLY 06/26/24 06/26/24 History mg/3 mL) subcutaneous pen injector (Ozempic) tamsulosin 0.4 mg capsule 0.5 mg PO BID 06/26/24 06/26/24 History Allergies/Adverse Reactions Allergy/AdvReac Type Severity Reaction Status Date / Time sulfamethoxazole (From Allergy Intermediate itching/sti Verified 06/26/24 09:26 Bactrim) nging trimethoprim (From Bactrim) Allergy Intermediate itching/sti Verified 06/26/24 09:26 nging oxycodone Allergy Unknown Unknown Verified 06/26/24 09:26 topiramate (From Topamax) Allergy Unknown Verified 06/26/24 09:26 Current Medications: Generic Name Dose Route Start Last Admin Trade Name Freq PRN Reason Stop Dose Admin Sodium Chloride 1,000 mls @ 30 mls/hr 06/27/24 06:00 06/27/24 06:16 Sodium Chloride 0.9% IV 06/28/24 05:59 30 mls/hr .Q24H CARA Administration Pertinent History/Comorbid Conditions* Medical History (Updated 06/04/24 @ 09:54 by Susanna Kang LPN, RT) Parotid nodule Lymphadenopathy of right cervical region Low vitamin B12 level Sepsis Diabetic foot ulcer Cellulitis of leg, right Non-pressure chronic ulcer of other part of right foot with fat layer exposed Callus of foot Decreased hearing of both ears Anxiety and depression Hyperlipidemia Right hip pain Callus of foot Carotid bruit Macrocytosis Paresthesia Cervical radiculopathy Right thyroid nodule Spinal cord stimulator status 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 Sinus tachycardia Shortness of breath Intervertebral disc disorder HTN (hypertension) Insomnia GERD (gastroesophageal reflux disease) Diabetes mellitus Surgical History (Updated 11/16/22 @ 00:01 by ONEL Sanchez) History of colonoscopy Status post amputation of toe S/P lumbar fusion S/P shoulder surgery S/P carpal tunnel release S/P knee replacement Bilateral S/p total knee replacement, bilateral Family History (Updated 03/07/19 @ 11:47 by Precious Ramirez RN) Diabetes Heart disease Cancer Social History Smoking and tobacco/nicotine status: never used tobacco/nicotine Second hand smoke exposure: Yes Alcohol intake: never Substance/Drug Use: never Caregiver/support person: Yes Lives independently: Yes Household members: spouse Marital status: service: No Current occupational status: retired Current gender identity: Male Special kellee needs: No Pertinent Exam Findings alert, oriented x 3, operative site marked and procedure specific exam findings Please refer to detail orthopedic examination on listed below: Right hip examination TTP over anterior groin Lumbar spine: mild pain and limited ROM with with hyperextension with back No TTP over bilateral SI joints Right TTP over trochanteric bursa Decreased hip range of motion with significant pain at the groin Significant pain with hip flexion and internal rotation Negative Straight leg raise Recommendations Risks and benefits of procedure reviewed and Patient/family agree to proceed Surgery/Procedure today Other Plans: Plan to proceed to the OR today for a right total hip arthroplasty?Negro robotic assisted through posterior approach. He is cleared preoperative clearance process A1c is controlled. Patient is no new complaints since his last office visit he states underneath his scrotum he has a little bit of irritants this is just more of a irritated skin due to just rubbing up underneath his perineal area. No issues or any signs of infection. At this point in time talked about patient is ready to proceed with surgical intervention. Patient verifies no wounds or signs of infection. At this point in time patient understands the ins and outs procedure the risk benefits complication alternatives surgery through shared decision-making elects proceed with surgical invention. All questions answered at this time. Coding Level of Care Code Acute Code for Chg Fwd
[2024-06-27] MEDS: ceFAZolin 2,000 MG in sodium chloride 0.9% (plus) 50 ML 100 MG IV ×3 (07:10→22:32)
[2024-06-27] MEDS: tranexamic acid 1,000 mg/10mL SDV 1000 MG IV (08:00)
[2024-06-27] MEDS: VANCOMYCIN ADD-Vantage 1,000 MG VIAL 1000 MG XX (08:23)
--- NOTE | 2024-06-27 10:46 | W.PM.BPON ---
Date of Procedure: 06/27/2024 Surgeon: Kenn Booker DO Carpenter Foreman(s): Manuel Booker PA-C Procedure(s) performed: Right total hip arthroplasty?Negro robotic assisted (posterior approach) Findings of the procedure(s): Patient underwent procedure as planned without issues or complications taken to PACU stable condition Estimated blood loss: 350 mL Specimen(s) removed: Femoral head removed and acetabular reamings removed Post-operative diagnosis: Right hip severe degenerative joint disease
--- NOTE | 2024-06-27 10:47 | P.OP_ITS ---
Operative Report Date of procedure: June 27, 2024 Surgeon: Kenn Booker DO Production Machine Operator: Manuel Booker PA-C: PA was necessary for assistance in this case with leg positioning, hip reductions, retraction and protection of neurovascular structures as well as assistance in implantation, wound closure and dressing application. Procedure: Preop Diagnosis?Right hip degenerative joint disease Post-op diagnosis: Right hip degenerative joint disease Procedure done: Right total hip arthroplasty?robotic assisted Negro?posterior?approach Implants: Erik total hip arthroplasty implants 54 mm cluster hole acetabular shell 6.5 mm x (20 & 20mm) acetabular screw Alpha code E MDM cementless metal liner Insignia femoral stem size #6 high offset Alpha code E MDM -4 mm head Surgeon: Kenn Booker DO Estimated blood loss: 350 mL IV fluids: 1200 mL Urine output: 250 mL Complications: None Condition: stable Disposition: floor Brief History: Patient's been seen and worked up by myself in the outpatient setting and findings consistent with Right hip degenerative joint disease. He has failed conservative treatment this is causing him severe pain and decreased mobility. We talked about his treatment options as far as nonoperative and operative intervention. he ultimately through shared decision-making would like to proceed with a Right total hip arthroplasty. we detailed out his risk benefits complications alternatives to surgical and nonsurgical treatment options. Understanding his risk for surgery he elects to proceed with Right total hip arthroplasty robotic assisted Negro utilizing a?posterior?approach. All questions answered. He elects proceed with surgery today. Procedure: Patient was seen evaluate in preoperative holding area.? Consent was reviewed and signed with patient.? Correct extremity was then marked.? Patient seen evaluate by anesthesia department once cleared for surgery pt was taken back to the operative suite.? Patient underwent anesthesia per the anesthesia department.? This point time pt was then placed on the operative suite and table.? Pt was then placed in lateral decubitus patient worked with the Right hip up.? Patient was secured in the lateral decubitus position with pegboard. All bony prominences well-padded he was properly secured to the bed.? At this point time the Right lower extremity was then prepped and draped in standard orthopedic fashion with care not to drape out the iliac wing for pelvic array placement.? Final timeout performed.? Patient received appropriate preoperative antibiotics. Started off with establishment of my pelvic array pins.? A small longitudinal incision was made directly over the iliac wing.? Sharp scalpel excision through skin and subcutaneous tissue directly onto bone.? Next I then loaded my pelvic pin.? This was then drilled through the iliac wing corridor with excellent fixation.? Next I then loaded the guide which was placed directly onto bone and then subsequently placed 2 more pins to secure fixation.? Next the pelvic array was then sent had excellent visualization with the Negro robot and was secured. A small square configuration was made with skin stapler at the lateral distal femur on the skin for a distal reference point. Next I proceeded with my standard?posterior?approach.? Care was made to not interfere with the patient's spinal stimulator posteriorly and was not seen throughout the case. Sharp scalpel through skin and subcutaneous tissue this was centered over the greater trochanter.? I then utilized a Cruz elevator over the gluteus leann fascia.? Next the fascia was then split longitudinally with bipolar electrocautery.? Next a Charnley retractor was then placed.? All bone was then placed into the abductors.? A standard full-thickness release of the piriformis and the short external rotators along with the capsule to a full thick sleeve for later repair was then placed straight down to the lesser troch anter.? Lesser trochanter was then subsequently identified.? Prior to dislocating the hip we then placed our greater trochanter femur checkpoint.? We marked our appropriate checkpoint for referencing on pelvic array.? At this point in time we then established both of our checkpoints as well as referencing for leg lengths I utilized the distal reference point. The legs were marked and traced to have appropriate position on the drapes to allow for accurate reading.? Preoperative leg lengths set. Once this was then established I then proceeded with dislocation of the femoral head.? At this point Hohmann's were then placed superiorly and inferiorly along the femoral neck.? The sciatic nerve was protected throughout this case.? At this point time I then utilized the Negro robot and referencing point to reference different aspects along the femoral head and neck for my appropriate neck length.? These were referenced on the inferior mid substance as well as up into the superior shoulder of the femoral neck.? This marked my oscillating saw was used to make my femoral neck cut.? Femoral head was then removed. Next the leg was placed in appropriate position and my anterior and?posterior?ac etabular retractors then placed.? Next I excised the labrum and then remove the pulvinar.? I did do a small release of the inferior capsule which was severely taut to allow for easier placement of my reamers as well as reduction.? Acetabulum was thoroughly irrigated. At this point in time keeping my retractors in place I subsequently loaded up the [employer] robot for my acetabular reaming.?? Next I then set my 54mm reamer under the Negro robot and subsequently held this with appropriate preplanned preop planned version of 40 degrees of abduction angle as well as 20 degrees of anteversion.? I then subsequently reamed this to the appropriate depth with 54mm reamer.? We opened up the acetabular shell clusterhole of the 54 mm Erik this was then loaded onto my impacting system originally this was attempted to be impacted however was catching on soft tissue this was removed and subsequently ellipsed out a part of inferior labrum/capsule that was interposed. This was then excised had good bleeding bone circumferentially and then subsequently loaded this back up into the [employer] impacting system set the degrees at 40 degrees of abduction of 20 degrees of anteversion and then this was subsequently impacted into satisfactory depth and position. This was then removed from the robot and I used the Negro probe at the center to confirm on the CT scan?that this was down on bone which it was.? Next I then drilled and placed 2 acetabular screws with excellent fixation these were drilled and measured to be 20mm and another 20 mm screw this was in the?posterior?superior aspect of the acetabulum had good purchase and fixation.? The cup was solid and had excellent press-fit fixation. next, opened the alpha code E MDM cementless liner then subsequently placed in appropriate position and impacted into place.? At this point time I then utilized a small rongeur to clear off the shoulder of the femoral neck to clear out the soft tissue envelope for my box osteotome.? Next box osteotome was used a canal finder was placed as well as a lateral lysing rattail rasp.? Once I was appropriately lateralized I then sequentially broached up to a size 6 femoral stem.? This was impacted to appropriate depth with excellent stability. This point I loaded a -4mm size neck and subsequently reduced the hip.? At this point in time the hip was taken through range of motion before evaluating with the robot on leg lengths.? Patient appeared to have satisfactory leg lengths clinically.? The hip was taken through range of motion and had excellent stability with hip flexion and internal rotation with no evidence of instability.? This point time utilized the Negro probe from our femur checkpoint down to distal checkpoint. Satisfied with this trial implants, at this point I dislocated the hip and then called for my final implants with excellent stability in all planes.? Opened up a size 6 femoral [place] insignia high offset. My trials were then removed and then subsequently impacted my Erik insignia high offset stem to the same level.? This point in time I trialed up to a -4 mm neck length which helped match with Negro robotic assistance had appropriate leg lengths comparative to the contralateral hip and this was confirmed clinically as well as had excellent stability I felt as though this was best combination with leg lengths being equal as well as with stability and elected for the final -4 mm MDM femoral head. Final MDM femoral head component was then opened and the trunnion was dried and this was impacted with excellent fixation and the hip was subsequently reduced.? We measured our final leg lengths which were appropriate patient had excellent stability in all ranges of motion.? This point time a robotic pins and checkpoints were removed.? I remove the femur checkpoint as well as my pelvic array and iliac wing pins.? Appropriate counts were then made.? This point time thoroughly irrigated the wound bed with pulse lavage.? Vancomycin powder was then sprinkled into the wound bed.? I then performed a standard capsular and external rotator repair utilizing #5 Ethibond and this was tied and repaired through bone tunnels hip, sciatic nerve was protected throughout this portion of the case. Was then kept in abduction external rotation and subsequently closed the fascial layer with Ethibond suture as well as running strata fix suture.? I then closed the deep subcutaneous layer as well as superficial subcutaneous layer with running strata fix suture as well as 3- 0strata fix for skin.? Prineo glue dressing was then placed over the skin.? I then irrigated the pelvic array pin site.? There is were then closed with interrupted 0, 2-0 Vicryl suture and Monocryl as well as Prineo glue for the skin.? Incisions were then covered with sebastian and Silverlon dressing.? Patient was awakened from anesthesia and taken to PACU in stable condition Disposition: Patient taken to PACU in stable condition.? Patient will receive appropriate discharge instructions as well as DVT prophylaxis and pain medication.? Patient will be admitted to the floor for observation should be evaluated by the internal medicine team for medical management.? Patient received appropriate DVT prophylaxis as well as pain medication PT/OT weightbearing as tolerated Right lower extremity with?posterior?hip precautions, Postoperative Abx and TXA.? We will follow-up with patient in the office in 2 weeks.? Patient understands agrees with current plan.? All questions answered.
--- NOTE | 2024-06-27 10:59 | XR_ITS ---
WS: [id number] XR hip RT 2-3V wo/w pel* [id number] REASON FOR EXAM: post op hip arthroplasty FINDINGS: Total right hip arthroplasty. Components of the arthroplasty are intact and in proper position and alignment. No focal bony abnormality. XR/XR hip RT 2-3V wo/w pel* [id number] IMPRESSION: Total right hip arthroplasty without abnormality.
--- NOTE | 2024-06-27 11:00 | PM.PACU ---
PACU note Narrative: Patient is a 73-year-old male who just underwent a right total hip arthroplasty. Pt transferred to PACU in stable condition. Dressing is dry. pt is awake and alert. pt can wiggle toes and plantarflex and dorsiflex foot. pt able to perform straight leg raise, Femoral nerve intact. Distal pulses are palpable toes are warm and well-perfused. Cap refill is normal and under 2 seconds. Sensation to foot is intact. Pain is controlled. Disposition: admitted
[2024-06-27 11:25] LABS: Glucose Point of Care 203 mg/dL (70-110)
--- NOTE | 2024-06-27 11:48 | ANE.PACU2 ---
Inpatient post-anesthesia follow up: Airway intact: Yes Vital signs: Temperature 97.9 F Pulse Rate 91 Respiratory Rate 14 Blood Pressure 105/63 Pulse Oximetry 96 Oxygen Delivery Me thod Nasal Cannula Oxygen Flow Rate 2 Fraction of Inspir ed Oxygen Hydration adequate: Yes Nausea and vomiting: No Pain level: 2 Mental status: Baseline
[2024-06-27] MEDS: lactated ringers 1,000 ML 75 ML IV (12:27)
[2024-06-27] MEDS: chlorhexidine gluconate 0.12% Btl 473 mL 30 ML MUCOUS MEM ×3 (12:27→22:31)
[2024-06-27] MEDS: tranexamic acid 1,000 MG/100 ML PREMIX 600 MG IV (13:17)
[2024-06-27] MEDS: ketorolac 30 mg/mL INJ 15 MG IVP (13:18)
--- NOTE | 2024-06-27 14:22 | PM.CONSULT ---
Providers/Reason For Consult Consulting Physician/Specialty*: Hospitalist Reason for Consult*: Medical management Attending Physician: Kenn Booker DO Primary Care Provider: TRUNG Todd History of Present Illness History of Present Illness The patient, Mr. Mckinnon, is in the hospital after undergoing orthopedic surgery. He reports feeling pretty good overall, with no chest pain, pressure, nausea, or vomiting. He is currently on supplemental oxygen?likely a post?anesthesia measure?and has been instructed in the use of an incentive spirometer. He denies fever, chills, sore throat, diarrhea, or rashes. The patient has a history of diabetes mellitus managed with insulin and an oral medication, and he mentions occasional leg swelling. He also notes taking a low dose of metoprol for anxiety and a medication for bladder emptying. Review of Systems Const: Denies: fever(s), chills, body aches or malaise ENMT: Denies: throat pain Card: Denies: chest pain, edema, pre-syncope or dyspnea on exertion Resp: Denies: dyspnea, productive cough, change in phlegm color or hemoptysis GI: Denies: abdominal pain, nausea, vomiting, diarrhea, constipation, hematochezia or melena : Denies: flank pain, difficulty urinating, urinary frequency or hematuria Musc: Denies: back pain, joint swelling or joint redness Skin/Breast: Denies: rash or new lesions Neuro: Denies: headache(s) or confusion Medications/Allergies Home Medications ?Medication ?Instructions ?Recorded ?Confirmed ?Last Taken ?Type aspirin 81 mg tablet,delayed 81 mg PO DAILY 03/07/19 06/26/24 06/22/24 History release (Adult Low Dose Aspirin) lidocaine 5 % topical patch 1 patch topical DAILY #30 ea 03/21/23 06/26/24 Unknown Rx nitroglycerin 0.4 mg sublingual 0.4 mg sublingual Q5M PRN chest 07/12/23 06/26/24 Unknown Rx tablet pain #25 tabs cyanocobalamin (vitamin B-12) 1,000 mcg IM DAILY 1 week #10 mL 10/25/23 06/26/24 06/25/24 Rx 1,000 mcg/mL injection solution metoprolol succinate 25 mg 12.5 mg (1/2 x 25 mg) PO DAILY #45 12/06/26/24 06/25/24 Rx tablet,extended release 24 hr tabs mupirocin 2 % topical ointment 1 applic topical BID #15 grams 04/02/24 06/26/24 Unknown Rx testosterone cypionate 200 mg/mL 150 mg (0.75 mL) SUBCUT .[id number] 04/11/24 06/26/24 06/19/24 Rx intramuscular oil #2 mL hydrocodone 10 mg-acetaminophen 1 tab PO Q8H PRN Pain 05/09/24 06/26/24 06/26/24 History 325 mg tablet baclofen 20 mg tablet 20 mg PO TID 06/26/24 06/26/24 06/26/24 History buspirone 10 mg tablet 10 mg PO BID 06/26/24 06/26/24 06/26/24 History celecoxib 200 mg capsule 200 mg PO BID 06/26/24 06/26/24 06/22/24 History dapagliflozin propanediol 10 mg 10 mg PO DAILY 06/26/24 06/26/24 06/23/24 History tablet (Farxiga) duloxetine 60 mg capsule,delayed 60 mg PO BID 06/26/24 06/26/24 06/26/24 History release ergocalciferol (vitamin D2) 1,250 1,250 mcg PO .WEEKLY 06/26/24 06/26/24 06/19/24 History mcg (50,000 unit) capsule famotidine 20 mg tablet 20 mg PO DAILY 06/26/24 06/26/24 06/25/24 History fenofibrate 160 mg tablet 160 mg PO DAILY 06/26/24 06/26/24 06/25/24 History fluticasone propionate 50 2 spray intranasal BID 06/26/24 06/26/24 06/26/24 History mcg/actuation nasal spray,suspension gabapentin 600 mg tablet 600 mg PO TID 06/26/24 06/26/24 06/26/24 History insulin degludec 200 unit/mL (3 20 unit SUBCUT DAILY 06/26/24 06/26/24 06/25/24 History mL) subcutaneous pen (Tresiba FlexTouch U-200 insulin) levocetirizine 5 mg tablet 5 mg PO DAILY 06/26/24 06/26/24 06/25/24 History metformin 500 mg tablet,extended 1,000 mg PO BID 06/26/24 06/26/24 06/25/24 History release 24 hr nortriptyline 25 mg capsule 25 mg PO BID 06/26/24 06/26/24 06/25/24 History semaglutide 0.25 mg or 0.5 mg (2 0.5 mg SUBCUT .WEEKLY 06/26/24 06/26/24 06/20/24 History mg/3 mL) subcutaneous pen injector (Ozempic) tamsulosin 0.4 mg capsule 0.5 mg PO BID 06/26/24 06/26/24 06/25/24 History Allergies Allergy/AdvReac Type Severity Reaction Status Date / Time sulfamethoxazole (From Allergy Intermediate itching/sti Verified 06/26/24 09:26 Bactrim) nging trimethoprim (From Bactrim) Allergy Intermediate itching/sti Verified 06/26/24 09:26 nging oxycodone Allergy Unknown Unknown Verified 06/26/24 09:26 topiramate (From Topamax) Allergy Unknown Verified 06/26/24 09:26 Current Medications Generic Name Dose Route Start Last Admin Trade Name Freq PRN Reason Stop Dose Admin Chlorhexidine Gluconate 30 ml 06/27/24 13:00 06/27/24 12:27 Chlorhexidine Gluconate 0.12% Btl 473 Ml MUCOUS MEM 30 ml QID CARA Administration Cefazolin Sodium 2,000 mg/ 50 mls @ 100 mls/hr 06/27/24 15:00 06/27/24 14:21 Sodium Chloride IV 06/28/24 07:29 100 mls/hr Q8H CARA Administration Protocol Lactated Ringer's 1,000 mls @ 75 mls/hr 06/27/24 12:02 06/27/24 12:27 Lactated Ringers IV 75 mls/hr .[id number] CARA Administration Acetaminophen 1,000 mg in 100 mls @ 400 mls/hr 06/27/24 14:00 06/27/24 14:14 Acetaminophen IV 06/28/24 06:14 Infused Q8H CARA Infusion Ketorolac Tromethamine 15 mg 06/27/24 12:02 06/27/24 13:18 Ketorolac 30 Mg/Ml Inj IVP 15 mg Q6H PRN Administration MODERATE TO SEVERE PAIN PFSH Acute PFSH: Medical History Parotid nodule Lymphadenopathy of right cervical region Low vitamin B12 level Sepsis Diabetic foot ulcer Cellulitis of leg, right Non-pressure chronic ulcer of other part of right foot with fat layer exposed Callus of foot Decreased hearing of both ears Anxiety and depression Hyperlipidemia Right hip pain Callus of foot Carotid bruit Macrocytosis Paresthesia Cervical radiculopathy Right thyroid nodule Spinal cord stimulator status 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 Sinus tachycardia Shortness of breath Intervertebral disc disorder HTN (hypertension) Insomnia GERD (gastroesophageal reflux disease) Diabetes mellitus Surgical History History of colonoscopy Status post amputation of toe S/P lumbar fusion S/P shoulder surgery S/P carpal tunnel release S/P knee replacement Bilateral S/p total knee replacement, bilateral Family History Other Cancer Diabetes Heart disease Social History Smoking and tobacco/nicotine status: never used tobacco/nicotine Second hand smoke exposure: Yes Alcohol intake: never Substance/Drug Use: never Caregiver/support person: Yes Lives independently: Yes Household members: spouse Marital status: service: No Current occupational status: retired Current gender identity: Male Special kellee needs: No Vitals/I&O/Wt Last Vital Signs Temp 97.9 F 06/27/24 13:00 Pulse 98 06/27/24 14:00 Resp 14 06/27/24 14:00 BP 104/58 06/27/24 14:00 Pulse Ox 94 06/27/24 14:00 O2 Del Method Nasal Cannula 06/27/24 14:00 O2 Flow Rate 2 06/27/24 14:00 06/26/24 06/27/24 06/27/24 22:59 06:59 14:59 Intake Total 1950 / 1950 Output Total 600 / 600 Balance 1350 / 1350 Weight last 48 hrs Weight 115.122 kg Weight 112.491 kg Physical Exam Narrative: Accompanied by his children Const: COMMON NORMALS: patient oriented x3 GENERAL APPEARANCE: cooperative OTHER: Sleeping, wakes up to voice. HENMT: COMMON NORMALS: oropharynx normal Neck/C-Spine: COMMON NORMALS: no JVD Resp: COMMON NORMALS: normal respiratory effort and clear to auscultation bilaterally AUSCULTATION: clear to auscultation bilaterally Cardio: COMMON NORMALS: no JVD, regular rhythm, S1 normal heart sound present, S2 normal heart sound present and No murmurs present (Cardio) RHYTHM: regular rhythm HEART SOUNDS: S1 normal heart sound present and S2 normal heart sound present GI: COMMON NORMALS: Normal to inspection, nondistended, normoactive bowel sounds present, Soft to palpation and non-tender PALPATION: Yes Soft to palpation Extremity: COMMON NORMALS: no joint enlargement and no pedal edema NARRATIVE EXTREMITY EXAM: Right hip postoperative dressing OTHER: Right lower extremity perfused, warm, without edema Neuro: COMMON NORMALS: patient oriented x3 and moves all extremities Skin: COMMON NORMALS: no rashes or lesions noted GENERAL SKIN EXAM: no rashes or lesions noted Urinary Catheter Management: Buchanan: Cath Placed During This Visit: yes Urinary Catheter Date of Insertion: 06/27/24 Urinary Catheter Time of Insertion: 07:20 Data 06/27/24 16:28 06/27/24 06:08 A&P Assessment and plan (1) S/P total right hip arthroplasty: Reviewed vitals, CBC, chemistry, noted with soft blood pressure. Orthopedic provider note, discussed orthopedic provider. Reviewed hip x-ray. 350 mL EBL, however, blood pressure down as low as 90/50. Discontinued continuous infusion, requested 250 mL bolus And recheck hemoglobin. Discussed with orthopedic surgeon. Follow-up blood counts in the morning. Bedrest for now. Reassess blood pressure. Pending PT assessment, remove Buchanan once mobilizing. Pain control, hydrocodone, ketorolac as needed, IV hydromorphone for severe breakthrough. Would avoid tramadol. Discontinued. He is going to be on prophylactic Eliquis. Repeat blood counts and chemistry. Tentative discharge disposition would be home. (2) Diabetes mellitus: At home he takes Tresiba 20 units at night, as well as Ozempic and metformin. Discussed with him and family, continue long-acting insulin at night, and while in the hospital at short acting sliding scale. Plan Low blood pressure, hold metoprolol for now. Continue Flomax for now. Monitor blood pressure. Reassess blood counts. Reviewed hemoglobin. Hold off baclofen for now. Hold off gabapentin. Anxiety and depression: Continue buspirone. Continue duloxetine, nortriptyline GERD: Continue famotidine BPH: Continue Flomax Other medical problems PDMP PDMP Reviewed: Not Reviewed Consult Attestations Medical Necessity Statement: Continue postoperative care after right ANA ROSA, further reassessment and management of low blood pressure, and gentleman with underlying diabetes and additional morbidities as above. 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
--- NOTE | 2024-06-27 16:10 | P.MISC_ITS ---
Miscellaneous Note Purpose of Documentation: Orthopedic note update: Patient was seen evaluated postoperatively up on the floor he is getting up and working with physical therapy. Patient's pain controlled no issues at this time. He has been slightly soft on his blood pressure internal medicine on board and appreciate management. At this point time we will recheck labs in the morning. Patient is able to wiggle toes plantarflex and dorsiflex ankle sensation intact light touch distally. Right lower extremity warm well- perfused. Postoperative x-rays reviewed stable right total hip arthroplasty in good alignment position no evidence of periprosthetic fracture or dislocation. Orthopedics will follow up with patient tomorrow goal is home with home health care tomorrow. Patient and son who is accompanying him at bedside understands and agrees with current plan. All questions answered. Kenn Booker, DO Orthopedic surgery
[2024-06-27] MEDS: sodium chloride 0.9% 250 ML IV (16:22)
[2024-06-27] MEDS: mupirocin oint 22 gm 1 APPLIC NASAL (17:33)
[2024-06-27] MEDS: sennosides-docusate Tablet 2 TAB PO (17:34)
[2024-06-27] MEDS: iron polysaccharide complex 150 mg Capsule PO (17:34)
[2024-06-27] MEDS: calcium carb-vit d 600mg/400unit 1 Tablet 1 EACH PO (17:34)
[2024-06-27] MEDS: HYDROcodone-acetaminophen 5-325 mg Tablet 1 TAB PO (20:04)
[2024-06-27 20:35] LABS: Glucose Point of Care 214 mg/dL (70-110)
[2024-06-27] MEDS: insulin lispro 100 unit/1 mL SUBCUT (21:14)
[2024-06-27] MEDS: insulin glargine 100 units/1 mL 20 UNIT SUBCUT (21:14)
[2024-06-27] MEDS: calcium carbonate 500 mg Chew Tablet 1000 MG PO (22:33)
[2024-06-27] MEDS: HYDROmorphone 0.5 MG/0.5 ML INJ IVP (22:33)
[2024-06-28 03:32] VITALS: BP 118/60; PULSE 109; RESP 16; TEMP 37.5; O2SAT 92
[2024-06-28] MEDS: HYDROmorphone 0.5 MG/0.5 ML INJ IVP (04:22)
[2024-06-28 04:53] LABS: Basophils # 0.1 10^3/uL (0.0-0.1); Basophils % 0.5 %; Eosinophils % 0.1 %; Hematocrit 34.9 % (37-53); Lymphocytes # 1.6 10^3/uL (0.8-4.8); Mean Corpuscular HGB Conc 31.8 g/dL (30-55); Mean Corpuscular Hemoglobin 29.4 pg (27-33); Mean Corpuscular Volume 92.3 fl (82-101); Mean Platelet Volume 10.3 fL (7.4-10.4); Monocytes % 10.9 %; Neutrophils # 6.57 10^3/uL (1.8-7.7); Nucleated Red Blood Cells % 0 %; Platelet Count 223 10^3/cmm (157-399); Red Blood Count 3.78 10^6/uL (3.85-5.65); White Blood Count 9.26 10^3/uL (3.29-11.43)
[2024-06-28 05:24] LABS: Anion Gap 11.1 (5-19); Blood Urea Nitrogen 23 mg/dL (8-23); Calcium 9.1 mg/dL (8.5-10.5); Carbon Dioxide 27 mmol/L (22-29); Chloride 104 mmol/L (98-107); Creatinine Clr Calc Pharmacy 63.8155; Glucose 201 mg/dL (65-115); Osmolality Calculated 295 mOsm/kg (285-295); Potassium 4.1 mmol/L (3.5-5.1); Sodium 138 mmol/L (136-145)
--- NOTE | 2024-06-28 05:40 | PC.NURSE ---
patient requested pain meds at 0420 this am. nurse scanned in his hydrocodone and he changed his mind and wanted dilaudid. dilaudid 0.5mg given iv. hydrocodone returned to [facility]
[2024-06-28] MEDS: acetaminophen 1,000 MG/100 ML PIGGYBACK 400 MG IV (06:11)
[2024-06-28] MEDS: ceFAZolin 2,000 MG in sodium chloride 0.9% (plus) 50 ML 100 MG IV (06:12)
[2024-06-28 06:25] LABS: Glucose Point of Care 222 mg/dL (70-110)
[2024-06-28 07:19] VITALS: BP 113/51; PULSE 108; RESP 16; TEMP 37.4; O2SAT 90
[2024-06-28 08:45] VITALS: BP 135/70; BP 169/72; PULSE 95
[2024-06-28] MEDS: insulin lispro 100 unit/1 mL SUBCUT ×2 (08:48→12:06)
[2024-06-28 08:57] VITALS: PULSE 107; RESP 18; O2SAT 93
[2024-06-28] MEDS: iron polysaccharide complex 150 mg Capsule PO (08:57)
[2024-06-28] MEDS: duloxetine 60 mg Capsule PO (08:57)
[2024-06-28] MEDS: BuSPIRONE 10 mg Tablet PO (08:58)
[2024-06-28] MEDS: tamsulosin 0.4 mg Capsule 0.5 MG PO (08:58)
[2024-06-28] MEDS: sennosides-docusate Tablet 2 TAB PO (08:58)
[2024-06-28] MEDS: multivitamin therapeutic Tablet 1 TAB PO (08:58)
[2024-06-28] MEDS: calcium carb-vit d 600mg/400unit 1 Tablet 1 EACH PO (08:58)
[2024-06-28] MEDS: famotidine 20 mg Tablet PO (08:58)
[2024-06-28] MEDS: ketorolac 30 mg/mL INJ 15 MG IVP (09:00)
[2024-06-28] MEDS: mupirocin oint 22 gm 1 APPLIC NASAL (09:01)
[2024-06-28] MEDS: chlorhexidine gluconate 0.12% Btl 473 mL 30 ML MUCOUS MEM ×2 (09:01→12:07)
[2024-06-28] MEDS: apixaban 5 mg Tablet 2.5 MG PO (09:02)
[2024-06-28] MEDS: nortriptyline 25 mg Capsule PO (09:42)
--- NOTE | 2024-06-28 10:43 | PM.PN ---
Subjective Subjective: He is doing better today. He did ambulate last night about 12 feet. This morning blood pressure is doing better, during my visit he is about to work with physical therapy. He denies chest pain or pressure, trouble breathing. Vitals/I&O/Wt Last Vital Signs Temp 99.3 F 06/28/24 07:19 Pulse 107 H 06/28/24 08:57 Resp 18 06/28/24 08:57 BP 113/51 06/28/24 07:19 Pulse Ox 93 06/28/24 08:57 O2 Del Method Room Air 06/28/24 08:57 O2 Flow Rate 2 06/28/24 07:19 06/27/24 06/28/24 06/28/24 22:59 06:59 14:59 Intake Total 540 / 2490 660 / 3150 240 / 240 Output Total 400 / 1000 400 / 1400 Balance 140 / 1490 260 / 1750 240 / 240 Weight last 48 hrs Weight 116.755 kg Weight 115.122 kg Weight 112.491 kg Physical Exam Narrative: Accompanied by his son Const: COMMON NORMALS: patient oriented x3 GENERAL APPEARANCE: cooperative HENMT: COMMON NORMALS: oropharynx normal Neck/C-Spine: COMMON NORMALS: no JVD Resp: COMMON NORMALS: normal respiratory effort and clear to auscultation bilaterally AUSCULTATION: clear to auscultation bilaterally Cardio: COMMON NORMALS: no JVD, regular rhythm, S1 normal heart sound present, S2 normal heart sound present and No murmurs present (Cardio) RHYTHM: regular rhythm HEART SOUNDS: S1 normal heart sound present and S2 normal heart sound present GI: COMMON NORMALS: Normal to inspection, nondistended, normoactive bowel sounds present, Soft to palpation and non-tender PALPATION: Yes Soft to palpation Extremity: COMMON NORMALS: no joint enlargement and no pedal edema NARRATIVE EXTREMITY EXAM: Right hip postoperative dressing. OTHER: Right lower extremity perfused, warm, without edema. Neuro: COMMON NORMALS: patient oriented x3 and moves all extremities Skin: COMMON NORMALS: no rashes or lesions noted GENERAL SKIN EXAM: no rashes or lesions noted Urinary Catheter Management: Buchanan: Cath Placed During This Visit: yes, but has since been removed by the nurse Reason for Continuing Indwelling Catheter: Other Urinary Catheter Date of Insertion: 06/27/24 Urinary Catheter Time of Insertion: 07:20 Date Urinary Catheter Removed: 06/28/24 Time Urinary Catheter Discontinued: 07:24 Data 06/28/24 04:11 06/28/24 04:11 A&P Assessment and plan (1) S/P total right hip arthroplasty: Reviewed vitals, CBC, hemoglobin down to 11.1. No outward bleeding. Normocytic. Without melena or hematochezia. On 2.5 mg Eliquis VTE prophylaxis. Discussed with him and his son follow-up with primary provider for reassessment of anemia and blood counts. Buchanan catheter has been removed. After had been seen by physical therapy he ambulated well, without right-sided symptoms, and orthostatic vitals were unremarkable. Reviewed orthopedic note. Agree with discharge with follow-up including primary provider. Discussed with nursing, counseling case manager. Reviewed chemistry. Would avoid any NSAIDs due to mild FERNANDO, creatinine 1.3. Will need to follow-up with PCP. (2) Diabetes mellitus: Resume home regimen. At home he takes Tresiba 20 units at night, as well as Ozempic and metformin. Discussed with him and family, continue long-acting insulin at night, and while in the hospital at short acting sliding scale. Plan Low blood pressure, hold metoprolol for now. Placed instructions for holding parameters for metoprolol in case of low blood pressure. Continue Flomax. Anxiety and depression: Continue buspirone. Continue duloxetine, nortriptyline GERD: Continue famotidine BPH: Continue Flomax Other medical problems PDMP PDMP Reviewed: Not Reviewed Attestations Medical Necessity Statement*: Continue postoperative care after right ANA ROSA with discharge home once ready per orthopedics. and High MDM includes amount and/or complexity of data reviewed/ordered [ previous or external records, resulted lab(s)/test(s) and other healthcare professional discussion] as documented Diagnoses S/P total right hip arthroplasty Z96.641 Type 2 diabetes mellitus with hyperglycemia, without long-term current use of insulin E11.65 Diabetes mellitus type: type 2 Diabetes mellitus assistant terminal manager insulin use: without assistant terminal manager use Diabetes mellitus complication status: with hyperglycemia
[2024-06-28 11:02] VITALS: BP 110/67; PULSE 90; RESP 16; TEMP 37.1; O2SAT 91
[2024-06-28 11:20] LABS: Glucose Point of Care 343 mg/dL (70-110)
--- NOTE | 2024-06-28 12:45 | P.DS_ITS ---
Discharge Providers Date of Admission: 06/27/24 11:02 Date of Discharge: June 28, 2024 Attending Provider at Admission: Kenn Booker DO Attending Provider at Discharge: Kenn Booker DO Consults: Dr. James?hospitalist Primary Care Provider: TRUNG Todd Diagnoses at Discharge Discharge Diagnosis (1) S/P total right hip arthroplasty: Status: Acute (2) Diabetes mellitus: Status: Chronic Qualifiers: Diabetes mellitus complication status: with hyperglycemia Diabetes mellitus watermelon harvesting supervisor insulin use: without watermelon harvesting supervisor use Diabetes mellitus type: type 2 Qualified Code(s): E11.65 - Type 2 diabetes mellitus with hyperglycemia Reason for Visit Reason for Visit: M16.11 Brief History: Status post right total hip arthroplasty?Negro robotic assisted Hospital Course Hospital Course Patient was brought to the hospital through the preoperative holding area with plan for right total hip arthroplasty 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 Once cleared by anesthesia for surgery subsequently was taken back to the operative suite underwent anesthesia per the anesthesia department and then underwent [right] total hip arthroplasty with Negro robotic assistance posterior approach without any complications. Patient was then subsequently taken back to PACU in stable condition recovering well. Once recovered, patient was then subsequently admitted to the floor postoperatively. Internal medicine was consulted for medical management assistance. Patient weightbearing as tolerated to the right lower extremity, posterior hip precautions. PT/OT. Pain control. DVT prophylaxis. Postoperative antibiotics and TXA. dressing was change as needed. Internal medicine was on board and appreciate their medical management and assistance. [Patient did have downtrending hemoglobin as well as soft pressures initially postoperatively however responded conservative treatment and hemoglobin was monitored throughout his hospitalization deemed stable for discharge on postoperative day 1 by internal medicine.]. Pt was determined on postoperative day [1] the patient was stable for discharge from orthopedic as well as internal medicine standpoint. Patient's labs were monitored daily. Patient will receive appropriate pain medication as well as DVT prophylaxis postoperatively. Appropriate discharge instructions as well. Patient was then discharged in stable condition. Patient will discharge home. Pt will follow- up with Orthopedics in the office in 2 weeks. Patient understands and agrees with current plan. All questions answered. Understands there is any issues or concerns and contact the office. Physical Exam Narrative: Right hip examination: Right hip incisions of the right hip are clean dry and intact, Shadia dressing With good seal. Dressing on in place, clean dry and intact. No evidence of saturation. Patient has normal postoperative swelling and tenderness to palpation to the hip. Compartments are soft compressible,'s calf soft and nontender. Sensations intact to light touch distally. Distal pulses are palpable. Patient is able to wiggle toes as well as plantarflex and dorsiflex ankle. Abduction pillow are in place Urinary Catheter Management: Buchanan: Cath Placed During This Visit: yes, but has since been removed by the nurse Reason for Continuing Indwelling Catheter: Other Urinary Catheter Date of Insertion: 06/27/24 Urinary Catheter Time of Insertion: 07:20 Date Urinary Catheter Removed: 06/28/24 Time Urinary Catheter Discontinued: 07:24 Discharge Data Studies Completed and Pending Completed Studies During Hospitalization Category Date Time Status XR hip RT 2-3V wo/w pel* [id number] Routine Exams 06/27/24 10:59 Completed Pending at discharge Category Date Time Status Basic Metabolic Panel AM LABS Lab 06/29/24 04:00 Ordered Basic Metabolic Panel AM LABS Lab 06/30/24 04:00 Ordered Complete Blood Count w/Auto AM LABS Lab 06/29/24 04:00 Ordered Complete Blood Count w/Auto AM LABS Lab 06/30/24 04:00 Ordered Radiology Impressions Hip/Pelvis X-Ray 06/27/24 10:59 IMPRESSION: Total right hip arthroplasty without abnormality. Laboratory Results WBC 9.26 10^3/uL (3.29-11.43) 06/28/24 04:11 RBC 3.78 10^6/uL (3.85-5.65) L 06/28/24 04:11 Hgb 11.10 g/dL (11.27-16.99) L 06/28/24 04:11 Hct 34.9 % (37-53) L 06/28/24 04:11 MCV 92.3 fl (82-101) 06/28/24 04:11 MCH 29.4 pg (27-33) 06/28/24 04:11 MCHC 31.8 g/dL (30-55) 06/28/24 04:11 RDW 14.0 % (12.1-15.1) 06/28/24 04:11 Plt Count 223 10^3/cmm (157-399) 06/28/24 04:11 MPV 10.3 fL (7.4-10.4) 06/28/24 04:11 Neut % (Auto) 71.0 % 06/28/24 04:11 Lymph % (Auto) 17.0 % 06/28/24 04:11 Pettis % (Auto) 10.9 % 06/28/24 04:11 Eos % (Auto) 0.1 % 06/28/24 04:11 Baso % (Auto) 0.5 % 06/28/24 04:11 Neut # (Auto) 6.57 10^3/uL (1.8-7.7) 06/28/24 04:11 Lymph # (Auto) 1.6 10^3/uL (0.8-4.8) 06/28/24 04:11 Pettis # (Auto) 1.0 10^3/uL (0.2-0.9) H 06/28/24 04:11 Eos # (Auto) 0.0 10^3/uL (0.0-0.8) 06/28/24 04:11 Baso # (Auto) 0.1 10^3/uL (0.0-0.1) 06/28/24 04:11 Nucleated RBC % (auto) 0 % 06/28/24 04:11 Nucleated RBCs # 0.0 /100WBC 06/28/24 04:11 Sodium 138 mmol/L (136-145) 06/28/24 04:11 Potassium 4.1 mmol/L (3.5-5.1) 06/28/24 04:11 Chloride 104 mmol/L (98-107) 06/28/24 04:11 Carbon Dioxide 27 mmol/L (22-29) 06/28/24 04:11 Anion Gap 11.1 (5-19) 06/28/24 04:11 BUN 23 mg/dL (8-23) 06/28/24 04:11 Creatinine 1.3 mg/dL (0.7-1.2) H 06/28/24 04:11 GFR Calculation Not Reportable 06/28/24 04:11 Glucose 201 mg/dL (65-115) H 06/28/24 04:11 POC Glucose 343 mg/dL (70-110) H 06/28/24 11:01 Calculated Osmolality 295 mOsm/kg (285-295) 06/28/24 04:11 Calcium 9.1 mg/dL (8.5-10.5) 06/28/24 04:11 Blood Type O Positive 06/27/24 06:08 Rho(D) Type Rh positive 06/27/24 06:08 Antibody Screen Negative 06/27/24 06:08 Vitals Last Vital Signs Temp 98.7 F 06/28/24 11:02 Pulse 90 06/28/24 11:02 Resp 16 06/28/24 11:02 BP 110/67 06/28/24 11:02 Pulse Ox 91 06/28/24 11:02 O2 Del Method Room Air 06/28/24 11:02 O2 Flow Rate 2 06/28/24 07:19 Discharge Plan Discharge Patient Disposition: Home Health Service Condition: Stable Prescriptions: New Eliquis 2.5 mg tablet 2.5 mg PO BID 35 Days Qty: 70 0RF cefadroxil 500 mg capsule 500 mg PO Q12H 7 Days Qty: 14 0RF Continued aspirin [Adult Low Dose Aspirin] 81 mg tablet,delayed release (DR/EC) 81 mg PO DAILY mupirocin 2 % ointment 1 applic topical BID Qty: 15 2RF Rx Instructions: apply to left heel fissure lidocaine 5 % adhesive patch,medicated 1 patch topical DAILY Qty: 30 5RF Rx Instructions: leave on most painful area for up to 12 hrs nitroglycerin 0.4 mg tablet, sublingual 0.4 mg sublingual Q5M PRN (Reason: chest pain) Qty: 25 0RF Rx Instructions: do not exceed 3 doses per episode cyanocobalamin (vitamin B-12) 1,000 mcg/mL solution 1,000 mcg IM DAILY 7 Days Qty: 10 3RF Rx Instructions: 1 ML WEEKLY X MONTH; 1 ML EVERY OTHER WEEK X MONTH; 1 ML EVERY MONTH metoprolol succinate 25 mg tablet extended release 24 hr 12.5 mg PO DAILY Qty: 45 1RF testosterone cypionate 200 mg/mL oil 150 mg SUBCUT .[id number] Qty: 2 2RF gabapentin 600 mg tablet 600 mg PO TID Rx Instructions: TAKE ONE TABLET BY MOUTH IN THE MORNING, TAKE ONE TABLET AT NOON AND TAKE TWO TABLETS AT BEDTIME baclofen 20 mg tablet 20 mg PO TID Rx Instructions: TAKE ONE TABLET BY MOUTH THREE TIMES DAILY nortriptyline 25 mg capsule 25 mg PO BID Rx Instructions: TAKE ONE CAPSULE BY MOUTH TWICE DAILY famotidine 20 mg tablet 20 mg PO DAILY Rx Instructions: TAKE ONE TABLET BY MOUTH DAILY tamsulosin 0.4 mg capsule 0.5 mg PO BID Rx Instructions: TAKE ONE CAPSULE BY MOUTH TWICE DAILY buspirone 10 mg tablet 10 mg PO BID Rx Instructions: TAKE ONE TABLET BY MOUTH TWICE DAILY ergocalciferol (vitamin D2) 1,250 mcg (50,000 unit) capsule 1,250 mcg PO .WEEKLY Rx Instructions: TAKE ONE CAPSULE BY MOUTH WEEKLY fluticasone propionate 50 mcg/actuation spray,suspension 2 spray intranasal BID Rx Instructions: USE 2 SPRAYS IN EACH NOSTRIL TWICE DAILY metformin 500 mg tablet extended release 24 hr 1,000 mg PO BID Rx Instructions: TAKE TWO TABLETS BY MOUTH TWICE DAILY duloxetine 60 mg capsule,delayed release(DR/EC) 60 mg PO BID Rx Instructions: TAKE ONE CAPSULE BY MOUTH TWICE DAILY fenofibrate 160 mg tablet 160 mg PO DAILY Rx Instructions: TAKE ONE TABLET BY MOUTH DAILY levocetirizine 5 mg tablet 5 mg PO DAILY Rx Instructions: TAKE ONE TABLET BY MOUTH DAILY insulin degludec [Tresiba FlexTouch U-200] 200 unit/mL (3 mL) insulin pen 20 unit SUBCUT DAILY Rx Instructions: INJECT 20 UNIT UNDER SKIN DAILY Changed hydrocodone-acetaminophen 10-325 mg tablet 1 tab PO Q6H PRN (Reason: Pain postop total hip) 7 Days Qty: 28 0RF Rx Instructions: postop total hip replacement Held dapagliflozin propanediol [Farxiga] 10 mg tablet 10 mg PO DAILY Hold Instructions: Resume on 07/02/24. Rx Instructions: TAKE ONE TABLET BY MOUTH DAILY Ozempic 0.25 mg or 0.5 mg (2 mg/3 mL) pen injector 0.5 mg SUBCUT .WEEKLY Hold Instructions: Resume on 07/02/24. Rx Instructions: INJECT 0.5 MG UNDER SKIN WEEKLY Discontinued celecoxib 200 mg capsule 200 mg PO BID Rx Instructions: TAKE ONE CAPSULE BY MOUTH TWICE DAILY Discharge Orders: Discharge Order (Routine); Ordered 06/28/24 Ordered By: Clif James Other Ambulatory Orders: DME: Juan (Order) Location: None Selected Ordered By: Kenn Booker Referrals: [facility] [Outside] Susanna Brock FNP [Primary Care Provider, Family Practice] - 07/08/24 12:00 pm Kenn Booker DO [Physician, Orthopedics] - 07/16/24 9:30 am Discharge Diet: Regular Discharge Activity: Limit activity as instructed Patient Instructions: Cefadroxil (By mouth), Ondansetron (By mouth), Apixaban (By mouth), Acute Wound Care (DC), Total Hip Replacement (DC), Opioid Safety, Post Anesthesia Care Activity Restrictions/Additional Instructions: Right total hip arthroplasty instructions Right hip lower dressing--Shadia Dressing--Keep dressing on and dry. After 3 days you can remove some of the dressing and shower. disconnect battery pack when showering. Shadia dressing will stay on until follow up appt in 2 weeks. The battery pack for the dressing will at 5-7 days. Battery pack can be removed and discarded once batteries . Patient should keep dressings clean dry and intact Okay to shower over dressings if they do become wet these should be removed and new dressings applied Right hip upper dressing--Keep incisions clean dry and intact, leave Silverlon bandage dressings on in place for 7 days after that may rinse incisions with warm soapy water pat dry and redress with a dry dressing Weight-bear as tolerated to operative lower extremity Posterior hip precautions as instructed by physical therapy--posterior avoid hip flexion past 90 degrees, adduction, avoid internal rotation (do not cross your legs past midline) When sleeping or lying in bed in supine position use abduction pillow to prevent legs from crossing midline Ice as needed for pain and swelling Take pain medication as prescribed Take antibiotic as prescribed for infection prophylaxis Take antinausea medication as needed May supplement for pain with Tylenol [id number] as needed(1000 mg every 8 hours-do not exceed more than 3000mg in 24-hour period) Supplement with Citracal vitamin D for bone health and healing Pain medication can cause constipation. take [id number] stool softeners and or MiraLAX. Take blood thinner as prescribed (Eliquis) Follow-up in the orthopedic office in 2 weeks Contact the office for any questions or concerns Follow-up with your primary doctor for reassessment of blood counts and anemia. Please have your primary doctor also reassess your kidney function with mild worsening of creatinine up to 1.3. Please avoid any NSAIDs like celecoxib, ibuprofen or other. Continue to monitor blood pressures at home, hold metoprolol if blood pressure is decreasing below 90 top number or 50 bottom number. In case it is persistently staying low, seek medical attention. Seek medical attention in case any worsening or new concerning symptoms. Discharge Attestations Time Spent in Discharge Care*: less than 30 min Quality Metrics Clinical Quality Measures [ No reported AMI, CVA or VTE this stay] Coding Level of Care Code Acute Code for Chg Fwd Diagnoses S/P total right hip arthroplasty Z96.641 Type 2 diabetes mellitus with hyperglycemia, without long-term current use of insulin E11.65 Diabetes mellitus complication status: with hyperglycemia Diabetes mellitus halfway insulin use: without watermelon harvesting supervisor use Diabetes mellitus type: type 2 Time Spent (min) 20
[2024-06-28 13:50] VITALS: BP 110/67; PULSE 91; RESP 16; TEMP 37.1; O2SAT 91
== END 2024-06-28 13:51 | disposition home health service (06) ==
LOC: MEDSURG 11:02
PROVIDERS: Internal Medicine; Physician Assistant; Admitting Provider Student in an Organized Health Care Education/Training Program; PCP Nurse Practitioner Family; Visit Provider Student in an Organized Health Care Education/Training Program
PROC: 8E0Y0CZ Robotic Assisted Procedure of Lower Extremity, Open Approach (ICD-10-PCS; CPT 27130; principal; 2024-06-27 07:00)
DX: M16.11 Unilateral primary osteoarthritis, right hip (principal); E11.65 Type 2 diabetes mellitus with hyperglycemia; Z79.4 Long term (current) use of insulin; Z79.84 Long term (current) use of oral hypoglycemic drugs; Z79.82 Long term (current) use of aspirin; K21.9 Gastro-esophageal reflux disease without esophagitis; I10 Essential (primary) hypertension; E78.5 Hyperlipidemia, unspecified; R00.0 Tachycardia, unspecified; N40.0 Benign prostatic hyperplasia without lower urinary tract symptoms
CPT/HCPCS: 27130; 20985; 36415; 36416; 51702; 73502; 80048; 82962; 85018; 85025; 86850; 86900; 96372; 97110; 97116; 97161; 97165; 97530; C1713; C1776; G0378; J0131; J0171; J0330; J0690; J1100; J1171; J1815; J1885; J2371; J2405; J2704; J2795; J3010; J3370; J3490; J7030; J7050; J7120; J9999; P9045

== ENCOUNTER 2024-07-06 11:41 | Emergency (ER) | payer MEDICARE, MEDICAID, SELFPAY ==
[2024-07-06] VITALS (8 sets, daily range): BP systolic 99–139; BP diastolic 56–79; PULSE 82–98; RESP 18; TEMP 36.3; O2SAT 92–97; BMI 36.6
--- NOTE | 2024-07-06 11:52 | ECG_ITS ---
[facility] Test Date: 2024-07-06 Pat Name: Yinka Mckinnon Department: Room: Gender: Male Oil Tester: : 1950 Requested By: Zachary Mcdonald Order Number: [id number] العراقي MD: Alexandra Gonzales M.D. Measurements Intervals [place] Rate: 93 P: 23 IA: 173 QRS: -9 QRSD: 111 T: 73 QT: 361 QTc: 451 Interpretive Statements SINUS RHYTHM MODERATE INTRAVENTRICULAR CONDUCTION DELAY [110+ ms QRS DURATION] NONSPECIFIC ST & T-WAVE ABNORMALITY Compared to ECG 06/18/2024 08:41:00 T-wave abnormality now present First degree AV block no longer present Myocardial infarct finding no longer present Electronically Signed On 07-07-2024 12:36:52 CDT by Alexandra Gonzales M.D. [email or web address]
--- NOTE | 2024-07-06 12:10 | XRR_ITS ---
PROCEDURE INFORMATION: Exam: XR Chest Exam date and time: 07/06/2024 12:38 PM Age: 73 years old Clinical indication: Shortness of breath; Additional info: SOB TECHNIQUE: Imaging protocol: Radiologic exam of the chest. Views: 1 view. COMPARISON: CR XR chest 1V portable [id number] 11/12/2022 10:39 AM FINDINGS: Lungs: Mild reticular opacity in the lower lungs bilaterally is more conspicuous than on 11/12/2022. There is no focal consolidation. Pleural spaces: There is no pleural effusion or pneumothorax. Heart/Mediastinum: There is mild enlargement of the cardiac silhouette. Bones/joints: There is moderate degenerative disease at both shoulders. No acute osseous findings. XR/XR chest 1V portable [id number] IMPRESSION: Mild reticular opacity in the lower lungs bilaterally is more conspicuous than on 11/12/2022. Possible mild chronic scarring/atelectasis. A superimposed acute process such as interstitial edema or low-grade infection is not excluded.
[2024-07-06 12:33] LABS: Basophils % 0.7 %; Eosinophils # 0.3 10^3/uL (0.0-0.8); Eosinophils % 5.6 %; Lymphocytes # 1.1 10^3/uL (0.8-4.8); Lymphocytes % 19.1 %; Mean Corpuscular HGB Conc 31.3 g/dL (30-55); Mean Corpuscular Hemoglobin 29.1 pg (27-33); Mean Corpuscular Volume 93.1 fl (82-101); Mean Platelet Volume 9.7 fL (7.4-10.4); Monocytes # 0.4 10^3/uL (0.2-0.9); Monocytes % 7.9 %; Neutrophils # 3.42 10^3/uL (1.8-7.7); Neutrophils % 61.7 %; Nucleated Red Blood Cells % 0.4 %; Platelet Count 366 10^3/cmm (157-399); Red Blood Count 3.33 10^6/uL (3.85-5.65); Red Cell Distribution Width 14.1 % (12.1-15.1); White Blood Count 5.55 10^3/uL (3.29-11.43)
[2024-07-06 12:45] LABS: INR 0.92 (0.8-1.2)
[2024-07-06 12:59] LABS: Alanine Aminotransferase 19 U/L (0-41); Albumin Level 3.3 g/dL (3.5-5.2); Alkaline Phosphatase 58 U/L (40-130); Anion Gap 16.7 (5-19); Aspartate Amino Transferase 31 U/L (0-40); Blood Urea Nitrogen 13 mg/dL (8-23); Calcium 8.6 mg/dL (8.5-10.5); Carbon Dioxide 23 mmol/L (22-29); Chloride 100 mmol/L (98-107); Creatinine Clr Calc Pharmacy 82.5609; Globulin 3.4 g/dL (1.3-4.6); Glucose 187 mg/dL (65-115); NT Pro B Type Natriuretic Pept 2081 pg/mL (0-125); Osmolality Calculated 287 mOsm/kg (285-295); Potassium 3.7 mmol/L (3.5-5.1); Sodium 136 mmol/L (136-145); Total Bilirubin 0.3 mg/dL (0.15-1.2); Total Protein 6.7 g/dL (6.6-8.7)
[2024-07-06 13:41] LABS: Influenza A NEGATIVE (Negative); Influenza B NEGATIVE (Negative); Respiratory Syncytial Virus Ce NEGATIVE (Negative); SARS-CoV-2 PCR NEGATIVE (Negative)
--- NOTE | 2024-07-06 14:43 | CTR_ITS ---
PROCEDURE INFORMATION: Exam: CTA Chest With Contrast Exam date and time: 07/06/2024 3:24 PM Age: 73 years old Clinical indication: Shortness of breath; Prior surgery; Surgery date: <1 month; Surgery type: RT hip; Additional info: SOB, recent surgery, unilateral leg swelling TECHNIQUE: Imaging protocol: Computed tomographic angiography of the chest with contrast. Exam focused on the arteries. 3D rendering (Not supervised by radiologist): MIP and/or 3D reconstructed images were created by the technologist. Radiation optimization: All CT scans at this facility use at least one of these dose optimization techniques: automated exposure control; mA and/or kV adjustment per patient size (includes targeted exams where dose is matched to clinical indication); or iterative reconstruction. Contrast material: OMNI 350; Contrast volume: 87 ml; Contrast route: INTRAVENOUS (IV); COMPARISON: CR (CHEST, ) 07/06/2024 12:38 PM RADIATION DOSE METRICS: Total DLP (mGy-cm): 507.89 FINDINGS: Tubes, catheters and devices: Thoracic epidural neural stimulator incidentally noted. Pulmonary arteries: The pulmonary arteries are adequately opacified for evaluation to the subsegmental level. There is no filling defect to suggest embolism. Aorta: The aorta is unremarkable. There is no aneurysm. Thyroid: There is a 2.1 cm nodule in the right thyroid lobe without calcification visible on series 7, image 35. Lungs: There is subsegmental atelectasis in the lung bases. There is no consolidation. Mild central bronchial wall thickening bilaterally. Click lingular pulmonary nodule There is a noncalcified pulmonary nodule in the lingula visible on 6 mm series 7, image 268. There is a vaguely nodular focal opacity with surrounding reticular and ground-glass opacity in the left upper lobe measuring 15 mm visible on axial series 5, image 27 and coronal series 8, image 39. there is mild ill-defined reticular opacity in the inferior left upper lobe and lingula. Pleural spaces: Small simple dependent bilateral pleural effusions. There is no pleural effusion or pneumothorax. Heart: There is mild cardiac enlargement. There is no pericardial effusion. Lymph nodes: Mildly enlarged bilateral hilar lymph nodes measuring up the 19 mm short axis on the right series 3 series 7, image 193 and 12 mm short axis on the left series 7, image 219. Intraperitoneal space: Visible structures in the upper abdomen are unremarkable. Bones/joints: There is moderate degenerative disease at both shoulders. No acute osseous findings. Soft tissues: The extrathoracic soft tissues are unremarkable. The extrathoracic soft tissues are unremarkable. CT/CT angio chest PE protcl [id number] IMPRESSION: 1. No pulmonary embolism. 2. Mild interstitial edema and small bilateral pleural effusions. 3. Mild ill-defined opacity in the lingula. Infection versus atelectasis. 4. 15 mm irregular nodule in the left upper lobe. Possibly inflammatory. For patients at low risk (minimal or absent history of smoking and of other known risk factors), recommend CT Chest at 3-6 months, then consider CT Chest at 18-24 months. For patients at high risk (history of smoking or of other known risk factors), recommend CT Chest at 3-6 months, then CT Chest at 18-24 months. (Reference: Florian) 5. Mild bilateral hilar lymph node enlargement of unknown significance. May be related interstitial edema. 6. 21 mm right thyroid nodule. Recommend nonemergent thyroid ultrasound. 7. Incidental findings above. COMMENTS: Consistent with the [place] [employer]'s Incidental Findings Committee white paper (J Am Rui Radiol 2015): In patients aged 35 years and older with an incidental thyroid nodule equal to or greater than 1.[address], MRI or extrathyroidal US, further evaluation with dedicated thyroid US is recommended for patients with normal life expectancy and without comorbidities. For smaller nodules without suspicious features, no further evaluation or follow up is recommended. REFERENCES: Florian Rhodes, et al. Guidelines for Management of Incidental Pulmonary Nodules Detected on CT Images: From the Fleischner Society 2017. Radiology. 2017;284(1):228-243.
[2024-07-06] MEDS: FUROsemide 10 mg/mL SDV 2mL 20 MG IVP (15:00)
[2024-07-06] MEDS: iohexol 350 mg/mL 500 mL Btl (per mL) IV (15:25)
--- NOTE | 2024-07-06 17:05 | W.ED.SOB ---
HPI - SOB/Dyspnea General: Chief Complaint: Shortness of Breath/Dyspnea Stated Complaint: trouble breathing Time Seen by Provider: 07/06/24 12:07 History of Present Illness: HPI Narrative: Had Surgery on the 8th since then has had increasing SOB. no fever. does report some wound drainage. a EMS thought maybe infected. pt denies increased tenderness or foul smell. he has had increasing SOB and lately a tingling or other sensation from R to L shoulder. down R arm and occasionally in the throat and chest. Related Data Home Medications ?Medication ?Instructions ?Recorded ?Confirmed aspirin 81 mg tablet,delayed 81 mg PO DAILY 03/07/19 07/22/24 release (Adult Low Dose Aspirin) baclofen 20 mg tablet 20 mg PO TID 06/26/24 07/22/24 buspirone 10 mg tablet 10 mg PO BID 06/26/24 07/22/24 dapagliflozin propanediol 10 mg 10 mg PO DAILY 06/26/24 07/22/24 tablet (Farxiga) Held on 06/28/24. Instructions: Resume on 07/02/24. duloxetine 60 mg capsule,delayed 60 mg PO BID 06/26/24 07/22/24 release ergocalciferol (vitamin D2) 1,250 1,250 mcg PO .WEEKLY 06/26/24 07/22/24 mcg (50,000 unit) capsule fenofibrate 160 mg tablet 160 mg PO DAILY 06/26/24 07/22/24 fluticasone propionate 50 2 spray intranasal BID 06/26/24 07/22/24 mcg/actuation nasal spray,suspension insulin degludec 200 unit/mL (3 20 unit SUBCUT DAILY 06/26/24 07/22/24 mL) subcutaneous pen (Tresiba FlexTouch U-200 insulin) metformin 500 mg tablet,extended 1,000 mg PO BID 06/26/24 07/22/24 release 24 hr nortriptyline 25 mg capsule 25 mg PO BID 06/26/24 07/22/24 semaglutide 0.25 mg or 0.5 mg (2 0.5 mg SUBCUT .WEEKLY 06/26/24 07/22/24 mg/3 mL) subcutaneous pen injector (Ozempic) Held on 06/28/24. Instructions: Resume on 07/02/24. tamsulosin 0.4 mg capsule 0.5 mg PO BID 06/26/24 07/22/24 Previous Rx's ?Medication ?Instructions ?Recorded lidocaine 5 % topical patch 1 patch topical DAILY #30 ea 03/21/23 nitroglycerin 0.4 mg sublingual 0.4 mg sublingual Q5M PRN chest 07/12/23 tablet pain #25 tabs cyanocobalamin (vitamin B-12) 1,000 mcg IM DAILY 1 week #10 mL 10/25/23 1,000 mcg/mL injection solution metoprolol succinate 25 mg 12.5 mg (1/2 x 25 mg) PO DAILY #45 02/08/24 tablet,extended release 24 hr tabs mupirocin 2 % topical ointment 1 applic topical BID #15 grams 04/02/24 apixaban 2.5 mg tablet (Eliquis) 2.5 mg PO BID blood clot 06/27/24 prevention 35 days #70 tabs hydrocodone 10 mg-acetaminophen 1 tab PO Q6H PRN Pain postop total 06/28/24 325 mg tablet hip 7 days #28 tabs furosemide 20 mg tablet 20 mg PO DAILY PRN swelling #30 07/17/24 tabs potassium chloride 10 mEq 10 meq PO DAILY PRN take only with 07/17/24 tablet,extended release (Klor-Con) lasix #30 tabs doxycycline hyclate 100 mg capsule 100 mg PO BID 10 days #20 caps 07/22/24 pantoprazole 40 mg tablet,delayed 40 mg PO DAILY #30 tabs 07/22/24 release (Protonix) gabapentin 600 mg tablet See Rx Instructions .Route 07/23/24 .COMPLEX #120 tabs levocetirizine 5 mg tablet See Rx Instructions .Route 07/23/24 .COMPLEX #90 tabs testosterone cypionate 200 mg/mL 150 mg (0.75 mL) SUBCUT .[id number] 07/23/24 intramuscular oil #2 mL Allergies Allergy/AdvReac Type Severity Reaction Status Date / Time sulfamethoxazole (From Allergy Intermediate itching/sti Verified 07/22/24 14:46 Bactrim) nging trimethoprim (From Bactrim) Allergy Intermediate itching/sti Verified 07/22/24 14:46 nging oxycodone Allergy Unknown Unknown Verified 07/22/24 14:46 topiramate (From Topamax) Allergy Unknown Verified 07/22/24 14:46 [facility] PFS: Medical History Parotid nodule Lymphadenopathy of right cervical region Low vitamin B12 level Sepsis Diabetic foot ulcer Cellulitis of leg, right Non-pressure chronic ulcer of other part of right foot with fat layer exposed Callus of foot Decreased hearing of both ears Anxiety and depression Hyperlipidemia Right hip pain Callus of foot Carotid bruit Macrocytosis Paresthesia Cervical radiculopathy Right thyroid nodule Spinal cord stimulator status 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 Sinus tachycardia Shortness of breath Intervertebral disc disorder HTN (hypertension) Insomnia GERD (gastroesophageal reflux disease) Diabetes mellitus Surgical History History of colonoscopy Status post amputation of toe S/P lumbar fusion S/P shoulder surgery S/P carpal tunnel release S/P knee replacement Bilateral S/p total knee replacement, bilateral Family History Other Cancer Diabetes Heart disease Social History Smoking and tobacco/nicotine status: never used tobacco/nicotine Second hand smoke exposure: Yes Alcohol intake: never Substance/Drug Use: never Caregiver/support person: Yes Lives independently: Yes Household members: spouse Marital status: service: No Current occupational status: retired Current gender identity: Male Special kellee needs: No Course ED course: Regarding patient's recent hip repair. He has 2 clean dry and intact incisions that look absolutely appropriate for postop day 10. No further drainage in the wound VAC and so I have replaced it with just Telfa dressings and discussed this with Dr. Villar. Regarding shortness of breath. I found a BNP to be greater than 2000, no historical BNP or echo for me to go off of. However x-ray does for the first time shows some mild pulmonary edema. Given that he had episodic issues of this and more issues with exertion with recent surgery I did opt to go ahead and do a CTA of the chest. D-dimer was considered but then not ordered as he has a healing wound which would elevate the D-dimer regardless. CTA was thankfully negative for pulmonary embolism. And did confirm pulmonary edema. No hypoxia at rest. Patient is given Lasix and has had copious urine output and reports already being able to breathe better. Vital Signs: Vital signs: Vital Signs Temperature 97.4 F L 07/06/24 11:44 Pulse Rate 92 07/06/24 17:38 Respiratory Rate 18 07/06/24 11:44 Blood Pressure 103/56 07/06/24 17:38 Pulse Oximetry 94 07/06/24 17:38 Oxygen Delivery Me thod Room Air 07/06/24 16:30 MDM - SOB/Dyspnea Medical Decision Making Regarding shortness of breath. I found a BNP to be greater than 2000, no historical BNP or echo for me to go off of. However x-ray does for the first time shows some mild pulmonary edema. Given that he had episodic issues of this and more issues with exertion with recent surgery I did opt to go ahead and do a CTA of the chest. D-dimer was considered but then not ordered as he has a healing wound which would elevate the D-dimer regardless. CTA was thankfully negative for pulmonary embolism. And did confirm pulmonary edema. No hypoxia at rest. Patient is given Lasix and has had copious urine output and reports already being able to breathe better. Differential Diagnosis Likely acute exacerbation of chronic obstructive airways disease, congestive heart failure, community acquired pneumonia, asthma with exacerbation and pulmonary embolism Medical Records I reviewed the patient's medical records. Lab Data I reviewed the patient's lab results. 07/06/24 12:20 07/06/24 12:20 Labs/Radiology: Radiology Impressions Chest X-Ray 07/06/24 12:10 IMPRESSION: Mild reticular opacity in the lower lungs bilaterally is more conspicuous than on 11/12/2022. Possible mild chronic scarring/atelectasis. A superimposed acute process such as interstitial edema or low-grade infection is not excluded. Chest CTA 07/06/24 14:43 IMPRESSION: 1. No pulmonary embolism. 2. Mild interstitial edema and small bilateral pleural effusions. 3. Mild ill-defined opacity in the lingula. Infection versus atelectasis. 4. 15 mm irregular nodule in the left upper lobe. Possibly inflammatory. For patients at low risk (minimal or absent history of smoking and of other known risk factors), recommend CT Chest at 3-6 months, then consider CT Chest at 18-24 months. For patients at high risk (history of smoking or of other known risk factors), recommend CT Chest at 3-6 months, then CT Chest at 18-24 months. (Reference: Florian) 5. Mild bilateral hilar lymph node enlargement of unknown significance. May be related interstitial edema. 6. 21 mm right thyroid nodule. Recommend nonemergent thyroid ultrasound. 7. Incidental findings above. COMMENTS: Consistent with the [employer]'s Incidental Findings Committee white paper (J Am Rui Radiol 2015): In patients aged 35 years and older with an incidental thyroid nodule equal to or greater than 1.[address], MRI or extrathyroidal US, further evaluation with dedicated thyroid US is recommended for patients with normal life expectancy and without comorbidities. For smaller nodules without suspicious features, no further evaluation or follow up is recommended. REFERENCES: Florian Rhodes, et al. Guidelines for Management of Incidental Pulmonary Nodules Detected on CT Images: From the [employer] Society 2017. Radiology. 2017;284(1):228-243. Laboratory Results WBC 5.55 10^3/uL (3.29-11.43) 07/06/24 12:20 RBC 3.33 10^6/uL (3.85-5.65) L 07/06/24 12:20 Hgb 9.70 g/dL (11.27-16.99) L 07/06/24 12:20 Hct 31.0 % (37-53) L 07/06/24 12:20 MCV 93.1 fl (82-101) 07/06/24 12:20 MCH 29.1 pg (27-33) 07/06/24 12:20 MCHC 31.3 g/dL (30-55) 07/06/24 12:20 RDW 14.1 % (12.1-15.1) 07/06/24 12:20 Plt Count 366 10^3/cmm (157-399) 07/06/24 12:20 MPV 9.7 fL (7.4-10.4) 07/06/24 12:20 Neut % (Auto) 61.7 % 07/06/24 12:20 Lymph % (Auto) 19.1 % 07/06/24 12:20 Cross % (Auto) 7.9 % 07/06/24 12:20 Eos % (Auto) 5.6 % 07/06/24 12:20 Baso % (Auto) 0.7 % 07/06/24 12:20 Neut # (Auto) 3.42 10^3/uL (1.8-7.7) 07/06/24 12:20 Lymph # (Auto) 1.1 10^3/uL (0.8-4.8) 07/06/24 12:20 Cross # (Auto) 0.4 10^3/uL (0.2-0.9) 07/06/24 12:20 Eos # (Auto) 0.3 10^3/uL (0.0-0.8) 07/06/24 12:20 Baso # (Auto) 0.0 10^3/uL (0.0-0.1) 07/06/24 12:20 Nucleated RBC % (auto) 0.4 % 07/06/24 12:20 Nucleated RBCs # 0.0 /100WBC 07/06/24 12:20 PT 13.00 SECONDS (12.1-14.9) 07/06/24 12:20 INR 0.92 (0.8-1.2) 07/06/24 12:20 Sodium 136 mmol/L (136-145) 07/06/24 12:20 Potassium 3.7 mmol/L (3.5-5.1) 07/06/24 12:20 Chloride 100 mmol/L (98-107) 07/06/24 12:20 Carbon Dioxide 23 mmol/L (22-29) 07/06/24 12:20 Anion Gap 16.7 (5-19) 07/06/24 12:20 BUN 13 mg/dL (8-23) 07/06/24 12:20 Creatinine 1.0 mg/dL (0.7-1.2) 07/06/24 12:20 GFR Calculation Not Reportable 07/06/24 12:20 Glucose 187 mg/dL (65-115) H 07/06/24 12:20 Calculated Osmolality 287 mOsm/kg (285-295) 07/06/24 12:20 Calcium 8.6 mg/dL (8.5-10.5) 07/06/24 12:20 Total Bilirubin 0.3 mg/dL (0.15-1.2) 07/06/24 12:20 AST 31 U/L (0-40) 07/06/24 12:20 ALT 19 U/L (0-41) 07/06/24 12:20 Alkaline Phosphatase 58 U/L (40-130) 07/06/24 12:20 NT-Pro-B Natriuret Pep 2081 pg/mL (0-125) H 07/06/24 12:20 Total Protein 6.7 g/dL (6.6-8.7) 07/06/24 12:20 Albumin 3.3 g/dL (3.5-5.2) L 07/06/24 12:20 Globulin 3.4 g/dL (1.3-4.6) 07/06/24 12:20 Influenza A (PCR) Negative (Negative) 07/06/24 12:20 Influenza Type B (PCR) Negative (Negative) 07/06/24 12:20 RSV (PCR) Negative (Negative) 07/06/24 12:20 SARS-CoV-2 (PCR) Negative (Negative) 07/06/24 12:20 All radiology interpretation(s) finalized by discharge ED provider radiology interpretation(s): X-ray personally viewed and I see new fissure lines on the right and increased basilar opacity concerning for pulmonary edema. Discharge Plan Discharge Patient Disposition: Home Clinical Impression: Pulmonary edema, S/P total right hip arthroplasty, Shortness of breath Condition: Stable Prescriptions: No Action aspirin [Adult Low Dose Aspirin] 81 mg tablet,delayed release (DR/EC) 81 mg PO DAILY mupirocin 2 % ointment 1 applic topical BID Qty: 15 2RF Rx Instructions: apply to left heel fissure furosemide 20 mg tablet 20 mg PO DAILY PRN (Reason: swelling) Qty: 30 2RF potassium chloride [Klor-Con 10] 10 mEq tablet extended release 10 meq PO DAILY PRN (Reason: take only with lasix) Qty: 30 2RF Rx Instructions: take only when taking Lasix lidocaine 5 % adhesive patch,medicated 1 patch topical DAILY Qty: 30 5RF Rx Instructions: leave on most painful area for up to 12 hrs pantoprazole [Protonix] 40 mg tablet,delayed release (DR/EC) 40 mg PO DAILY Qty: 30 2RF doxycycline hyclate 100 mg capsule 100 mg PO BID 10 Days Qty: 20 0RF nitroglycerin 0.4 mg tablet, sublingual 0.4 mg sublingual Q5M PRN (Reason: chest pain) Qty: 25 0RF Rx Instructions: do not exceed 3 doses per episode cyanocobalamin (vitamin B-12) 1,000 mcg/mL solution 1,000 mcg IM DAILY 7 Days Qty: 10 3RF Rx Instructions: 1 ML WEEKLY X MONTH; 1 ML EVERY OTHER WEEK X MONTH; 1 ML EVERY MONTH metoprolol succinate 25 mg tablet extended release 24 hr 12.5 mg PO DAILY Qty: 45 1RF testosterone cypionate 200 mg/mL oil 150 mg SUBCUT .[id number] Qty: 2 2RF levocetirizine 5 mg tablet See Rx Instructions .ROUTE .COMPLEX Qty: 90 2RF Dose Instruction: TAKE ONE TABLET BY MOUTH DAILY Rx Instructions: TAKE ONE TABLET BY MOUTH DAILY gabapentin 600 mg tablet See Rx Instructions .ROUTE .COMPLEX Qty: 120 2RF Dose Instruction: TAKE ONE TABLET BY MOUTH IN THE MORNING, TAKE ONE TABLET AT NOON AND TAKE TWO TABLETS AT BEDTIME Rx Instructions: TAKE ONE TABLET BY MOUTH IN THE MORNING, TAKE ONE TABLET AT NOON AND TAKE TWO TABLETS AT BEDTIME baclofen 20 mg tablet 20 mg PO TID Rx Instructions: TAKE ONE TABLET BY MOUTH THREE TIMES DAILY nortriptyline 25 mg capsule 25 mg PO BID Rx Instructions: TAKE ONE CAPSULE BY MOUTH TWICE DAILY tamsulosin 0.4 mg capsule 0.5 mg PO BID Rx Instructions: TAKE ONE CAPSULE BY MOUTH TWICE DAILY buspirone 10 mg tablet 10 mg PO BID Rx Instructions: TAKE ONE TABLET BY MOUTH TWICE DAILY ergocalciferol (vitamin D2) 1,250 mcg (50,000 unit) capsule 1,250 mcg PO .WEEKLY Rx Instructions: TAKE ONE CAPSULE BY MOUTH WEEKLY fluticasone propionate 50 mcg/actuation spray,suspension 2 spray intranasal BID Rx Instructions: USE 2 SPRAYS IN EACH NOSTRIL TWICE DAILY metformin 500 mg tablet extended release 24 hr 1,000 mg PO BID Rx Instructions: TAKE TWO TABLETS BY MOUTH TWICE DAILY duloxetine 60 mg capsule,delayed release(DR/EC) 60 mg PO BID Rx Instructions: TAKE ONE CAPSULE BY MOUTH TWICE DAILY fenofibrate 160 mg tablet 160 mg PO DAILY Rx Instructions: TAKE ONE TABLET BY MOUTH DAILY insulin degludec [Tresiba FlexTouch U-200] 200 unit/mL (3 mL) insulin pen 20 unit SUBCUT DAILY Rx Instructions: INJECT 20 UNIT UNDER SKIN DAILY dapagliflozin propanediol [Farxiga] 10 mg tablet 10 mg PO DAILY Rx Instructions: TAKE ONE TABLET BY MOUTH DAILY Ozempic 0.25 mg or 0.5 mg (2 mg/3 mL) pen injector 0.5 mg SUBCUT .WEEKLY Rx Instructions: INJECT 0.5 MG UNDER SKIN WEEKLY Eliquis 2.5 mg tablet 2.5 mg PO BID 35 Days Qty: 70 0RF hydrocodone-acetaminophen 10-325 mg tablet 1 tab PO Q6H PRN (Reason: Pain postop total hip) 7 Days Qty: 28 0RF Rx Instructions: postop total hip replacement Discharge Orders: Discharge ED (Routine); Ordered 07/06/24 Ordered By: Zachary Mcdonald Referrals: Susanna Brock FNP [Primary Care Provider, Family Practice] Discharge Diet: Usual diet and Low Salt Discharge Activity: Increase activity as tolerated Patient Instructions: Pulmonary Edema (ED) Activity Restrictions/Additional Instructions: Regarding your wounds. Please follow-up with orthopedics as and home health as scheduled. Make sure to stay active so you recuperate well for your hip replacement. I want you to follow-up with your primary care or your assistant brand manager within the next 2 weeks to get an echocardiogram if 1 has not been done recently. I have prescribed you 14 days of Lasix tablets. I want you to take 5 days of Lasix tablets and if you are feeling better and less short of breath I want you to stop taking them. I want you to weigh yourself every morning and write it down. This way if you notice that you gain 5 pounds within 1 or 2 days you can take a Lasix tablet that morning. Print Language: Amharic Coding Level of Care Code ED Composition Weatherboard Installer for Tal Vasquez
== END 2024-07-06 17:39 | disposition home or self-care (01) ==
PROVIDERS: Emergency Provider Emergency Medicine; PCP Nurse Practitioner Family
DX: J81.1 Chronic pulmonary edema (principal); Z96.641 Presence of right artificial hip joint; Z98.890 Other specified postprocedural states; R06.02 Shortness of breath; Z79.82 Long term (current) use of aspirin; Z79.01 Long term (current) use of anticoagulants; Z79.4 Long term (current) use of insulin; Z11.52 Encounter for screening for COVID-19; E78.5 Hyperlipidemia, unspecified; E11.9 Type 2 diabetes mellitus without complications; I10 Essential (primary) hypertension
CPT/HCPCS: 36415; 71045; 71275; 80053; 83880; 85025; 85610; 87637; 93005; 96374; 99285; J1938

== ENCOUNTER → 2024-07-16 09:35 | Outpatient (BNVA) | payer MEDICARE, MEDICAID, SELFPAY | PROVIDERS: PCP Nurse Practitioner Family; Visit Provider Physician Assistant | DX: Z96.641 Presence of right artificial hip joint (principal) | CPT/HCPCS: 73502; 99024 ==

== ENCOUNTER → 2024-07-17 13:34 | Outpatient (BNVA) | payer MEDICARE, MEDICAID, SELFPAY | PROVIDERS: PCP Nurse Practitioner Family; Visit Provider Nurse Practitioner Family | DX: J81.0 Acute pulmonary edema (principal) | CPT/HCPCS: 80053 ==

== ENCOUNTER 2024-07-26 16:10 | Outpatient (CLI) | payer MEDICARE, MEDICAID, SELFPAY ==
--- NOTE | 2024-07-26 16:45 | USR_ITS ---
PROCEDURE INFORMATION: Exam: US Duplex Right Lower Extremity Veins, Limited Exam date and time: 07/26/2024 4:36 PM Age: 74 years old Clinical indication: Other: Cellulitis; Prior surgery; Surgery date: <1 month; Surgery type: Hip replacement-3 weeks ago; Additional info: R06.00 - dyspnea, unspecified TECHNIQUE: Imaging protocol: Real-time duplex ultrasound of the right extremity with 2-D gutierrez scale, color Doppler flow and spectral waveform analysis including responses to compression and other maneuvers (when performed) with image documentation. Limited exam was focused on the right lower extremity veins. COMPARISON: CT lower leg RT w con [id number] 11/12/2022 3:52 PM FINDINGS: Right deep veins: Unremarkable. The common femoral, femoral, proximal profunda femoral, popliteal, posterior tibial and peroneal veins are patent without thrombus. Normal Doppler waveforms. Normal compressibility and/or augmentation response. Superficial veins: Greater saphenous vein at the saphenofemoral junction is patent without thrombus. Soft tissues: Unremarkable. US/[place] [id number] IMPRESSION: No sonographic evidence of deep vein thrombosis.
== END 2024-07-26 16:11 | disposition home or self-care (01) ==
LOC: RAD 16:13
PROVIDERS: PCP Nurse Practitioner Family; Visit Provider Nurse Practitioner Family
DX: R06.00 Dyspnea, unspecified (principal); M79.604 Pain in right leg
CPT/HCPCS: 93971

== ENCOUNTER → 2024-08-06 09:21 | Outpatient (BNVA) | payer MEDICARE, MEDICAID, SELFPAY | PROVIDERS: PCP Nurse Practitioner Family; Visit Provider Podiatrist Foot & Ankle Surgery | DX: E11.42 Type 2 diabetes mellitus with diabetic polyneuropathy (principal); L60.3 Nail dystrophy; L84 Corns and callosities; E11.8 Type 2 diabetes mellitus with unspecified complications; Z89.422 Acquired absence of other left toe(s); Z79.84 Long term (current) use of oral hypoglycemic drugs; Z79.4 Long term (current) use of insulin | CPT/HCPCS: 11056; 11721 ==

== ENCOUNTER 2024-08-15 07:12 | Outpatient (CLI) | payer MEDICARE, MEDICAID, SELFPAY ==
--- NOTE | 2024-08-15 07:45 | USCV_ITS ---
[facility] Age: 74 Gender: M : 1950 Exam Date: 08/15/2024 07:37 Ordering Phys: Susanna Brock PROFESSOR OF PATHOLOGY PROFESSOR OF PATHOLOGY Technologist: MANUEL [place] [facility] [place]: Acute Pulmonary Edema BP: 120 / 62 HR: 75 Rhythm: Sinus Technical Quality: Adequate MEASUREMENTS (Male / Female) Normal Values 2D ECHO LV Diastolic Diameter PLAX 4.8 cm 4.2 - 5.9 / 3.9 - 5.3 cm IVS Diastolic Thickness 1.2 cm 0.6 - 1.0 / 0.6 - 0.9 cm IVS Systolic Thickness 1.4 cm LVPW Diastolic Thickness 1.1 cm 0.6 - 1.0 / 0.6 - 0.9 cm LVPW Systolic Thickness 1.4 cm LVOT Diameter 2.1 cm LV Ejection Fraction 2D Teich 53.0 % LV Ejection Fraction MOD 4C 48.3 % LV Ejection Fraction MOD 2C 53.1 % LV Ejection Fraction 2C AL 54.2 % LA Diameter 4.1 cm RA Systolic Volume 4C AL 48.6 ml RA Systolic Volume 4C MOD 47.3 ml LA Sys Volume AL 68.8 cm cubed LA Sys Volume Index AL 29.1 cm cubed/m squared Aorta at Sinotubular Diameter 2.7 cm IVC Diameter 1.8 cm M-MODE LA Ao Ratio MM 1.4 AV Cusp Separation MM 1.5 cm DOPPLER AV Peak Velocity 111.0 cm/s LVOT Peak Velocity 99.0 cm/s AV Area Cont Eq vti 3.9 cm squared AV Area Cont Eq pk 3.1 cm squared MV Peak Velocity 119.0 cm/s MV Area PHT 3.5 cm squared Mitral E to A Ratio 0.7 TR Peak Velocity 88.0 cm/s TR Peak Gradient 3.1 mmHg TV Peak E Velocity 66.0 cm/s PV Peak Velocity 120.0 cm/s FINDINGS Left Ventricle Left ventricle is normal in size. LV systolic function is mildly reduced with EF of 45-50%. Mild global hypokinesis. Grade 1 diastolic dysfunction. Right Ventricle Normal in size and function. Right Atrium Normal in size Left Atrium Dilated Mitral Valve Structurally normal mitral valve. Trace mitral regurgitation Aortic Valve Structurally normal aortic valve. No significant stenosis or regurgitation Tricuspid Valve Insufficient TR jet to calculate RVSP Pulmonic Valve Not well visualized Pericardium Normal Aorta Normal in size IVC Appears to be normal CONCLUSIONS LV systolic function is mildly reduced with EF of 45-50%. Grade 1 diastolic dysfunction Left atrial dilation. Trace mitral regurgitation. Dallin Coelho MD (Electronically Signed) Final Date: 30 August 2024 11:31 S
== END 2024-08-15 07:13 | disposition home or self-care (01) ==
PROVIDERS: PCP Nurse Practitioner Family; Visit Provider Nurse Practitioner Family
DX: J81.0 Acute pulmonary edema (principal); R06.02 Shortness of breath; R93.1 Abnormal findings on diagnostic imaging of heart and coronary circulation; I51.89 Other ill-defined heart diseases; I51.7 Cardiomegaly
CPT/HCPCS: 93306

== ENCOUNTER → 2024-08-27 09:38 | Outpatient (BNVA) | payer MEDICARE, MEDICAID, SELFPAY | PROVIDERS: PCP Nurse Practitioner Family; Visit Provider Student in an Organized Health Care Education/Training Program | DX: Z96.641 Presence of right artificial hip joint (principal) | CPT/HCPCS: 73502; 99024 ==

== ENCOUNTER → 2024-08-28 15:24 | Outpatient (BNVA) | payer MEDICARE, MEDICAID, SELFPAY | PROVIDERS: PCP Nurse Practitioner Family; Visit Provider Nurse Practitioner Family | DX: R60.0 Localized edema (principal) | CPT/HCPCS: 80053; 85025 ==

== ENCOUNTER → 2024-09-18 11:08 | Outpatient (BNVA) | payer MEDICARE, MEDICAID, SELFPAY | PROVIDERS: PCP Nurse Practitioner Family; Visit Provider Podiatrist Foot & Ankle Surgery | DX: E11.42 Type 2 diabetes mellitus with diabetic polyneuropathy (principal); E11.8 Type 2 diabetes mellitus with unspecified complications; Z89.422 Acquired absence of other left toe(s); Z79.84 Long term (current) use of oral hypoglycemic drugs; Z79.4 Long term (current) use of insulin | CPT/HCPCS: 73630; 99213 ==

== ENCOUNTER 2024-10-17 16:50 | Outpatient (CLI) | payer MEDICARE, MEDICAID, SELFPAY ==
--- NOTE | 2024-10-17 17:00 | CT_ITS ---
WS: [id number] CT chest w con* [id number] HISTORY: R91.1 - Solitary pulmonary nodule TECHNIQUE: Axial imaging performed through the thorax. Coronal and sagittal reformats are submitted. All CT scans at [facility] use at least one of these dose optimization techniques: automated exposure control; mA and/or kV adjustment per patient size (includes targeted exams where dose is matched to clinical indication); or iterative reconstruction. CONTRAST: Omnipaque 350; 100 mL IV. DLP: 573.90 mGy.cm COMPARISON: 07/06/2024 Lungs and central airway: Low inspiratory effort. Mild crowding of the lung markings would improve with better inspiratory effort. Reidentified is the 12 mm nodule which is slightly spiculated in the LEFT upper lobe, image 26 series 5. Nodule has not increased in size since 07/06/2024. There is a small amount of linear atelectasis adjacent to this nodule. Linear atelectasis at the RIGHT lung base. 2 mm nodule along the minor fissure. Pleura: No pleural effusions. Previously described pleural effusions have resolved. Heart and pericardium: Normal size heart with no pericardial effusion. Mediastinum and cynthia: Previously described mediastinal and hilar lymphadenopathy is significantly improved. Mildly prominent indeterminate RIGHT hilar lymph nodes measuring up to 1.6 cm. Vessels: Mild atherosclerosis aorta. No aneurysm. Normal size pulmonary artery. Chest wall and lower neck: Reidentified 19 mm RIGHT thyroid nodule. Upper abdomen: Mild thickening of the LEFT adrenal gland. Visualized liver is negative. Mild diverticular disease in the splenic flexure. Osseous structures: Moderate thoracic spondylosis. Hypertrophic osteophytes. Dorsal column stimulator. CT/CT chest w con* [id number] IMPRESSION: 1. Slightly spiculated 12 mm nodule LEFT upper lobe has not increased in size. If there is a history of smoking Recommend PET/CT follow-up or tissue sampling. Otherwise follow-up chest CT in 3 to 6 months with IV contrast. 2. Overall improved aeration throughout both lungs. No pneumonia. 3. Significant improvement in the mediastinal and hilar lymphadenopathy since . Single indeterminate lymph node at the RIGHT hilum measures 1.6 cm.
[2024-10-17] MEDS: iohexol 350 mg/mL 500 mL Btl (per mL) IV (17:09)
== END 2024-10-17 16:51 | disposition home or self-care (01) ==
LOC: RAD 16:50
PROVIDERS: PCP Nurse Practitioner Family; Visit Provider Nurse Practitioner Family
DX: R91.1 Solitary pulmonary nodule (principal); E55.9 Vitamin D deficiency, unspecified; E11.65 Type 2 diabetes mellitus with hyperglycemia; R79.89 Other specified abnormal findings of blood chemistry
CPT/HCPCS: 71260; 80053; 80061; 82040; 82306; 82607; 83036; 83735; 84270; 84403; 84443; 85025

== ENCOUNTER 2024-10-23 16:13 | Outpatient (CLI) | payer MEDICARE, MEDICAID, SELFPAY ==
--- NOTE | 2024-10-23 16:16 | CT_ITS ---
WS: [id number] CT NECK WITH CONTRAST HISTORY: LOCALIZED SWELLING, MASS AND LUMP, NECK TECHNIQUE: Contiguous 2 mm axial images are performed through the neck with intravenous contrast. Sagittal and coronal reformats are also submitted. All CT scans at [facility] use at least one of these dose optimization techniques: automated exposure control; mA and/or kV adjustment per patient size (includes targeted exams where dose is matched to clinical indication); or iterative reconstruction. CONTRAST: CONTRAST: Omnipaque 350; 100 mL IV. DLP: 209.78 mGy.cm COMPARISON: 06/03/2024. Previously described enhancing nodule in the superficial RIGHT parotid tail is reidentified but is much smaller in size now measuring 8 x 5 mm. Intense enhancement within this lesion. There are a few additional small parotid lymph nodes. The LEFT parotid gland is negative. No enhancing mass on the LEFT. Nasopharynx, oropharynx, hypopharynx and larynx are unremarkable. No soft tissue masses or abnormal enhancement. Torus tubarius and fossa of Rosenmuller and parapharyngeal fat are normal. No significant lymphadenopathy is identified. Reidentified is the RIGHT thyroid nodule in the inferior lobe measuring 1.4 x 2.1 cm. Low-attenuation mass with peripheral enhancement with slight increase in size since 06/03/2024. The LEFT thyroid is negative. Cervical spondylosis. Negative orbits and globes. Dense areas of consolidation in the sphenoid sinus with inspissated secretions. No air-fluid levels within the visualized sinuses. Lung apices are negative. CT/CT neck w con* [id number] IMPRESSION: 1. Significant interval decrease in size of the recently described enhancing m ass in the RIGHT parotid tail. Parotid mass now measures 8 x 5 mm. There is sti ll a mass present with enhancement. This may have been an abnormal lymph node. Recommend continued close clinical and imaging follow-up to ensure complete res olution. 2. Slight increase in size of the RIGHT thyroid nodule measuring 1.4 x 2.1 cm. 3. No cervical chain lymphadenopathy. 4. RIGHT sphenoid sinus inspissated secretions.
[2024-10-23] MEDS: iohexol 350 mg/mL 500 mL Btl (per mL) IV (17:15)
== END 2024-10-23 16:14 | disposition home or self-care (01) ==
LOC: RAD 16:14
PROVIDERS: PCP Nurse Practitioner Family; Visit Provider Specialist
DX: R22.1 Localized swelling, mass and lump, neck (principal); E04.1 Nontoxic single thyroid nodule
CPT/HCPCS: 70491

== ENCOUNTER → 2024-11-04 13:34 | Outpatient (BNVA) | payer MEDICARE, MEDICAID, SELFPAY | PROVIDERS: PCP Nurse Practitioner Family; Visit Provider Internal Medicine | DX: R91.1 Solitary pulmonary nodule (principal); R79.89 Other specified abnormal findings of blood chemistry | CPT/HCPCS: 99203; 99213 ==

== ENCOUNTER 2024-11-08 13:25 | Outpatient (CLI) | payer MEDICARE, MEDICAID, SELFPAY | END 2024-11-08 13:26 | disposition home or self-care (01) | LOC: RT 13:27 | PROVIDERS: PCP Nurse Practitioner Family; Visit Provider Internal Medicine | DX: R91.1 Solitary pulmonary nodule (principal) | CPT/HCPCS: 94010; 94726; 94729 ==

== ENCOUNTER 2024-11-14 13:42 | Day surgery (SDC) | payer MEDICARE, MEDICAID, SELFPAY | END 2024-11-14 14:00 | disposition home or self-care (01) | LOC: GILAB 11-25 07:04 | PROVIDERS: PCP Nurse Practitioner Family; Visit Provider Internal Medicine | DX: Z53.9 Procedure and treatment not carried out, unspecified reason (principal) ==

== ENCOUNTER 2024-11-15 13:30 | Outpatient (CLI) | payer MEDICARE, MEDICAID, SELFPAY ==
--- NOTE | 2024-11-15 14:00 | PETR_ITS ---
PROCEDURE INFORMATION: Exam: PET/CT Skull Base to Mid-thigh Exam date and time: 11/15/2024 2:28 PM Age: 74 years old Clinical indication: Abnormal findings; Abnormal CT scan; Pulmonary nodule LABS AND CLINICAL REPORTS: Glucose: 111 mg/dl Treatment strategy for malignancy (PET staging): Initial Staging (PI) TECHNIQUE: Imaging protocol: Following at least four-hour fasting and following the injection of radiopharmaceutical, low dose CT images were obtained. Then, PET images were obtained. Attenuation corrected images were constructed using the CT scan. Fused images of PET and CT were reviewed. The standardized uptake values (SUV) reported below are maximum values within a region of interest, expressed in gm/ml. Exam includes orbital meatal line to mid-thigh. SUV normalization method: BodyWeight Radiopharmaceutical: 11.3 mCi F-18 FDG (Fluorodeoxyglucose), IV. Time of imaging post radiopharmaceutical administration: 48 minutes Injection site: LAC COMPARISON: 1. CT neck w con* [id number] 10/23/2024 4:[address] chest w con* [id number] 10/17/2024 5:[address] angio chest PE protcl [id number] 07/06/2024 3:24 PM FINDINGS: Tubes, catheters and devices: Spinal stimulator with right buttock subcutaneous generator pack. Brain: Visualized brain has normal physiologic uptake. Paranasal sinuses: Non FDG avid left sphenoid sinus opacification. Salivary glands: Intervally stable FDG avid 8 mm posterior right parotid nodule on axial image 30 with SUV max 8.8. Pharynx: No abnormal uptake. Larynx: No abnormal uptake. Thyroid: Intervally stable size non FDG avid 2.1 cm right thyroid nodule. Lungs, pleura and trachea: Stable 1.1 cm lingular nodule on axial image 95 with SUV max 2.1. This is in the midst of broader bandlike atelectasis or scarring better appreciated on coronal and sagittal reformats. Left lower lobe superior segment calcified granuloma. Heart: Normal physiologic uptake. Coronary arteries: Heavy coronary artery calcification. Mediastinal space: No abnormal uptake. Liver: No abnormal uptake. Gallbladder and biliary ducts: No abnormal uptake. Pancreas: No abnormal uptake. Spleen: No abnormal uptake. Calcified granulomata. Adrenal glands: No abnormal uptake. Kidneys and ureters: Normal physiologic uptake. Stomach and bowel: Long segment small and large bowel uptake without underlying CT abnormality is likely benign. Colonic diverticulosis without findings of diverticulitis. Vasculature: No abnormal uptake. Mild systemic atherosclerotic calcification without aortic aneurysm. Lymph nodes: No abnormal uptake. No lymphadenopathy in the head, neck, chest, abdomen, pelvis, and extremities. Calcified mediastinal and left hilar nodes in keeping with sequela of old granulomatous disease. Skeleton: Degenerative change along the axial skeletal system and shoulders. L4-S1 posterior instrumented fusion hardware. Left sacroiliac joint fusion hardware. Right total hip arthroplasty with surrounding FDG uptake likely postsurgical inflammatory change. Soft tissues: No abnormal uptake in the visualized head, neck, chest, abdomen, pelvis, and extremities. Small fat containing left inguinal hernia. METRICS: Mediastinal blood pool: SUV mean 2.1 Liver uptake: SUV mean 2.6 PET/PET skull to thigh INIT [id number] IMPRESSION: 1. Stable 1.1 cm lingular nodule with very low-level FDG uptake favoring benignity. 2. Intervally stable FDG avid 8 mm posterior right parotid nodule may represent primary neoplasm versus abnormal lymph node. 3. Additional chronic and incidental findings as above.
== END 2024-11-15 13:31 | disposition home or self-care (01) ==
LOC: RAD 13:32
PROVIDERS: PCP Nurse Practitioner Family; Visit Provider Internal Medicine
DX: R91.1 Solitary pulmonary nodule (principal)
CPT/HCPCS: 78815; A9552

== ENCOUNTER → 2024-11-26 13:49 | Outpatient (BNVA) | payer MEDICARE, MEDICAID, SELFPAY | PROVIDERS: PCP Nurse Practitioner Family; Visit Provider Student in an Organized Health Care Education/Training Program | DX: Z96.641 Presence of right artificial hip joint (principal); E11.42 Type 2 diabetes mellitus with diabetic polyneuropathy; L60.3 Nail dystrophy; E11.8 Type 2 diabetes mellitus with unspecified complications; L84 Corns and callosities; Z89.422 Acquired absence of other left toe(s); Z79.4 Long term (current) use of insulin; Z79.84 Long term (current) use of oral hypoglycemic drugs | CPT/HCPCS: 11056; 73502; 99213 ==

== ENCOUNTER → 2024-11-28 11:26 | Outpatient (BNVA) | payer MEDICARE, MEDICAID, SELFPAY | PROVIDERS: PCP Nurse Practitioner Family; Visit Provider Internal Medicine | DX: R91.1 Solitary pulmonary nodule (principal) | CPT/HCPCS: 99214; Q3014 ==

== ENCOUNTER → 2024-12-02 12:46 | Outpatient (BNVA) | payer MEDICARE, MEDICAID, SELFPAY | PROVIDERS: PCP Nurse Practitioner Family; Visit Provider Internal Medicine | DX: R07.89 Other chest pain (principal); I11.9 Hypertensive heart disease without heart failure | CPT/HCPCS: 36415; 80048; 85025; 85610; 99214 ==

== ENCOUNTER 2024-12-06 10:10 | Outpatient (CLI) | payer MEDICARE, MEDICAID, SELFPAY ==
[2024-12-06] VITALS (15 sets, daily range): BP systolic 97–133; BP diastolic 49–80; PULSE 72–86; RESP 16–20; TEMP 36.5–36.9; O2SAT 92–96; BMI 34.7
--- NOTE | 2024-12-06 11:30 | XACV_ITS ---
Exam Room: 2 Ht: 178 cm Wt: 110 kg BSA: 2.37 m2 Gender: Male : 1950 Any Known Allergies: Other Exam Priority: Routine Procedure(s): Procedure Description: Diagnostic procedure Procedure Description: Left Heart Catheterization Procedure Description: Left ventriculography Procedure Description: Coronary Angiography Diagnostic Cath Status: Elective Diagnostic Findings * INDICATION: Chest pain/ PVCs/ LV dysfunction. * Left Main: significant, calcified 80% stenosis, CHIOMA: 3 flow. * Mid Right Coronary Artery: severe, calcified, 80-90% stenosis, CHIOMA: 3 flow. * Distal Right Coronary Artery: obstructive 60- 70% stenosis, CHIOMA: 3 flow. * Proximal Circumflex: chronic total occlusion, CHIOMA: 0 flow. Right to left collaterals seen. * Ramus: -65% stenosis, CHIOMA: 3 flow. * Mid Left Anterior Descending: critical 95% stenosis, CHIOMA: 2 flow. * 1st Diagonal: obstructive 70% stenosis, CHIOMA: 3 flow. * Coronary angiography shows right dominance. Conclusions 1. Severe multivessel coronary artery disease. We will refer to tertiary care center for CABG. 2. Mild to moderate left ventricular systolic dysfunction. Ejection fraction of 35-40%. Recommendations * Referring for CABG. * Continue aspirin. * Outpatient cardiology follow up in 2-3 weeks. Interventional RX Recommendation: CABG Diagnostic RX Recommendation: CABG Anticoagulation: Heparin Ventriculography Ejection Fraction: 40.0 % Pressures Phase:Rest AO : 72 / 60 ( 66 ) @ 1:35:00 PM 114 / 61 ( 84 ) @ 1:41:00 PM 115 / 62 ( 81 ) @ 1:41:00 PM LV : 109 / -2 / 12 @ 1:40:00 PM 121 / -1 / 14 @ 1:40:00 PM / - @ 1:41:00 PM Valves Phase:DefaultPhase AV : 5.0 @ 12:51:22 PM AV Mean Gradient: 10.0 @ 12:51:22 PM Clinical Evaluation EBL: 5mL-10mL Procedural Details Procedure Consent Obtained. Pre-Procedure Time Out. Identified patient by full name and date of as verbalized by the patient/guarantor. Does the consent match the physician's order: Yes. Accurate & Complete Informed Consent: Yes. Inpatient/Outpatient History & Physical on Chart: Yes. If H&P is completed, is and addenduem needed: No. Visualize and Verify Site with Patient/Guarantor: N/A. Relevant Radiology Images available: Yes. The risks, benefits, and alternatives of sedation and/or procedure were discussed by physician. The patient agrees to continue. Procedure started. [facility] Clinical Fraility Score: 3: Managing Well. Octave Board Assembler Indications: New Onset Angina. Octave Board Assembler Indications: LV Dysfunction. Chest Pain Symptom Assessment: Typical Angina Symptoms. Cardiovascular Instability: No. Correct patient, site and procedure confirmed by cath team. PERRLA. Strong, equal hand money laundering investigator bilaterally. Lungs clear x 5 lobes. IV Site on Arrival: 20 gauge in the right anticubital. IV Fluids: 0.9% NaCl at KVO. 0 mL infused prior to labor relations consultant. Pre Procedural Pulses: bilateral radial was 2+. Pre Procedural Pulses: bilateral posterior tibial was 3+. Pre Procedural Pulses: right dorsalis pedis was 2+. Pre Procedural Pulses: bilateral posterior tibial was Doppled. Pre Procedural Pulses: left dorsalis pedis was 1+. Oxygen started at 2liters/min via nasal canula. right groin was prepped with chloroprep then draped in the usual sterile fashion. right radial was prepped with chloroprep then draped in the usual sterile fashion. Baseline sample Acquired. HR: 75 BPM. Physician notified. Patient's family unavailable. Equipment: 6F - Radial. Cardiac Cath Pack. ACIST Manifold Kit Model BT 2000. Heparinized Saline (2 units/mL), 1000 mL bag. Physician arrived. Physician scrubbed in. Immediate Pre-Procedure Time Out. Correct Patient: Yes; Correct Procedure: Yes; Correct Site: Yes; Correct Patient Position: Yes; Correct Supplies: Yes; Dried Flammable Prep: Yes; Blood Products Available: No. Lidocaine 1% infiltrated to the right radial. Arterial access obtained. A 5 italian TIG catheter in over the exchange J wire. Catheter redirected to the RCA. Multiple views taken of right coronary artery. Catheter redirected to the RCA. Catheter removed over the exchange J wire. A 5 italian Angled Pig catheter in over the exchange J wire. EDP Sample taken: LV 109/-3,12; HR: 76 BPM; SpO2: 95%. LV gram performed in BRITT @ 10 mL/second for a total of 30 mL. EDP Sample taken: LV 121/-2,14; HR: 77 BPM; SpO2: 95%. Pullback taken: LV 121/-3,14; AO 114/61(84); Mean: 10mmHg, Peak to Peak: 5mmHg, SEP: 21sec/min; HR: 79 BPM; SpO2: Off%. Aortogram performed in AP @ 10 mL/second for a total of 30 mL in DSA. Catheter removed over the exchange J wire. Dr. Coelho scrubbed out. A TR Band was successful obtaining hemostatsis at the Right Radial artery insertion site. Post Procedure: Pulses reassessed and unchanged. PERRLA. Strong, equal hand money laundering investigator bilaterally. No VTE prophylaxis required. Medication's Wasted: Lidocaine 1% = 18 mL. Medication's Wasted: Nitro = 49.8 mg. Medication's Wasted: Heparin = 1000 units. Medication's Wasted: Other = Versed 1 mg. Medication's Wasted: Other = Fentanyl 50 mcg. Total IV fluids: 275 mL. PCI Indication: CAD (without ischemic symptoms). Post-op diagnosis: Multi vessel CAD. Complications: none. Estimated blood loss: 5mL-10mL. Responsiveness - Normal response to verbal stimuli; alert and oriented, PERRLA. Airway - Unaffected, no intervention required; spontaneous ventilation. Circulation: W/N/L, pulses unchanged. Nausea/Vomiting: No. Vital chart was stopped. Procedure completed. Patient transferred by bed to CPRU. Access Site Site: Right Radial artery Sheath Size: 6 Fr Hemostasis Method: TR Band Hemostasis Success: Successful Procedure Medications Start: 12:23 PM Stop: 12:23 PM Medication: Versed Amount: 1 mg Route: I.V. Start: 12:24 PM Stop: 12:24 PM Medication: Fentanyl Amount: 50 mcg Route: I.V. Start: 12:30 PM Stop: 12:30 PM Medication: Nitrogylcerin Amount: 200 mcg Route: I.A. Start: 12:31 PM Stop: 12:31 PM Medication: Heparin Amount: 5000 units Route: I.V. Start: 12:33 PM Stop: 12:33 PM Medication: 0.9% Saline Amount: 250 ml Route: I.V. bolus I, the attending physician, have reviewed and verified all procedure medications. Yes, all medications given per verbal order History/Risk Factors Hypertension: Yes Dyslipidemia: Yes Peripheral Arterial Disease (PAD): No Myocardial Infarction (DE): No Obesity: Yes Renal Disease: No Tobacco Use: Never Prior Interventions PCI: No CABG: No Valve Surgery: No Report Signatures Finalized by Dallin Coelho MD on 12/08/2024 09:55 AM
--- NOTE | 2024-12-06 12:23 | P.HPUD_ITS ---
Surgery/Procedure H&P Update DATE OF PROCEDURE: December 06, 2024 DATE H&P PERFORMED: 12/06/24 H&P UPDATE INFORMATION: I have reviewed H&P completed within last 30 days, I have examined patient prior to procedure and No changes to prior documentation PREOP DIAGNOSIS: LV dysfunction/ PVCs/ Chest pain PRIMARY INDICATION FOR PROCEDURE: LV dysfunction/ PVCs/ Chest pain PLANNED PROCEDURE: Operation Date: 12/06/24 11:30 Proposed Procedures p Cardiac Catheterization - [facility] w/wo LV & Coros(Left) - Dallin Coelho M.D Possible percutaneous coronary intervention PATIENT REASSESSED PRIOR TO SEDATION, WITH NO CHANGE NOTED: Yes PHYSICAL EXAM: alert, oriented x 3, clear to auscultation bilaterally and regular rate & rhythm AIRWAY EVAL/ANESTHESIA PLAN: normal airway, ASA III, Local Anesthesia, Risks, benefits & alternatives of sedation and/or procedure discussed and Patient agrees to continue as planned ADDITIONAL INFORMATION: Moderate sedation
--- NOTE | 2024-12-06 13:01 | P.PCN_ITS ---
Procedure Note: Date of procedure: 12/06/24 Pre-procedure diagnosis: Chest pain/ PVCs/ LV dysfunction Post-procedure diagnosis: other (Severe multi vessel Coronary artery disease) Procedure: Left main artery has distal severe 70-80% stenosis. Mid LAD has critical 95-99% stenosis. Left circumflex artery is occluded. High OM/ ramus has severe proximal stenosis. RCA has proximal to mid vessel, calcified 80-90% stenosis. Distal RCA has 60-70% stenosis. LV gram showing EF of 35-40% Case discussed with CT surgery in [facility] (Dr Cordero at [facility]) who will see patient early next week for CABG referral Continue aspirin. We will add metoprolol. Performing Provider: Dallin Coelho Estimated blood loss (mL): 10 Complications: None Condition: stable Disposition: same day Coding Level of Care Code Acute Code for Tal Vasquez
--- NOTE | 2024-12-06 14:26 | PC.NURSE ---
TRB Air Removed 1ml air removed from TRB at this time per protocol. No bleeding or hematoma noted at arterial puncture site. Will monitor .
--- NOTE | 2024-12-06 14:40 | PC.NURSE ---
Report called Report called to Bao DURON in ICU. Awaiting bed to be cleaned for pt transfer.
--- NOTE | 2024-12-06 15:30 | PC.NURSE ---
Pt transferred Pt transferred to ICU at this time via w/c. TRB in place, puncture site C/D/I, no bleeding or hematoma noted. Care of pt transferred to Bao DURON at this time.
--- NOTE | 2024-12-06 15:34 | PC.NURSE ---
Transferred to ICU 3 via wheelchair. Tolerated we, reports lower back pain. Respirations even and unlabored. TR band to right wrist with 6mL of air remaining.
--- NOTE | 2024-12-06 15:40 | PC.NURSE ---
2mL air removed from right radial TR band, no bleeding or hematoma noted.
--- NOTE | 2024-12-06 15:55 | PC.NURSE ---
2 mL air removed from right radial TR band. No bleeding or bruising noted.
--- NOTE | 2024-12-06 16:15 | PC.NURSE ---
final 2mL of air removed from right radial TR band. No bleeding or hematoma.
--- NOTE | 2024-12-06 16:30 | PC.NURSE ---
TR band removed from right radial wrist. No bruising or hematoma noted. Band-aid placed over insertion site.
== END 2024-12-06 17:33 | disposition home or self-care (01) ==
LOC: CCL 14:33 → ICU 15:32
PROVIDERS: PCP Nurse Practitioner Family; Visit Provider Internal Medicine
DX: I25.118 Atherosclerotic heart disease of native coronary artery with other forms of angina pectoris (principal); I25.82 Chronic total occlusion of coronary artery; I51.9 Heart disease, unspecified; I11.0 Hypertensive heart disease with heart failure; E78.5 Hyperlipidemia, unspecified; E66.9 Obesity, unspecified; Z68.34 Body mass index [BMI] 34.0-34.9, adult; Z79.82 Long term (current) use of aspirin; Z79.891 Long term (current) use of opiate analgesic; Z79.4 Long term (current) use of insulin; K21.9 Gastro-esophageal reflux disease without esophagitis; E11.9 Type 2 diabetes mellitus without complications; F41.8 Other specified anxiety disorders; R00.0 Tachycardia, unspecified
CPT/HCPCS: 36415; 93458; 99152; 99153; C1769; C1887; C1894; J1644; J2250; J3010; J3490; J7030; J9999; Q0163; Q9967

== ENCOUNTER 2024-12-10 10:07 | Outpatient (CLI) | payer MEDICARE, MEDICAID, SELFPAY ==
--- NOTE | 2024-12-10 10:00 | USR_ITS ---
PROCEDURE INFORMATION: Exam: US Unlisted Ultrasound Procedure Exam date and time: 12/10/2024 10:49 AM Age: 74 years old Clinical indication: Screening exam; Additional info: Pre cabg workup TECHNIQUE: Imaging protocol: Unlisted ultrasound procedure (eg, diagnostic, interventional). COMPARISON: No relevant prior studies available. FINDINGS: Procedural imaging: Patent right greater saphenous vein, measures 0.3-0.4 cm in diameter from ankle to knee, and running at a depth of approximately 0.3-0.7 cm from the skin. From knee to groin, the vein measures approximately 0.3-0.4 cm in diameter, and runs at a depth of approximately 0.8-0.9 cm from the skin. No thrombus identified. Patent left greater saphenous vein, measures 0.3-0.4 cm in diameter from ankle to knee, and running at a depth of approximately 0.4-0.7 cm from the skin. From knee to groin, the vein measures approximately 0.4-0.5 cm in diameter, and runs at a depth of approximately 0.7-1.0 cm from the skin. No thrombus identified. US/CV venous mapping [facility] [id number] IMPRESSION: Patent bilateral lower extremity greater saphenous veins, as described above.
== END 2024-12-10 10:08 | disposition home or self-care (01) ==
LOC: RAD 10:10
PROVIDERS: PCP Nurse Practitioner Family; Visit Provider Internal Medicine Cardiovascular Disease
DX: Z01.818 Encounter for other preprocedural examination (principal); I25.10 Atherosclerotic heart disease of native coronary artery without angina pectoris; I83.813 Varicose veins of bilateral lower extremities with pain
CPT/HCPCS: 93970

== ENCOUNTER 2024-12-11 06:38 | Outpatient (CLI) | payer MEDICARE, MEDICAID, SELFPAY ==
--- NOTE | 2024-12-11 07:00 | USCV_ITS ---
[facility] Age: 74 Gender: M : 1950 Exam Date: 12/11/2024 06:51 Ordering Phys: Vhae Knight MD ([email or web address]) Technologist: Exam Location: [facility] [place] Indication: possible CABG Risk Factors: Previous Vascular Surgery: Right Brachial BP: / Left Brachial BP: / Right Left Velocity (cm/s) Spectral Plaque Velocity (cm/s) Spectral Plaque Syst/Diast Broadening Syst/Diast Broadening 81.70/ 19.30 Prox CCA 73.20 / 16.70 83.50/ 22.50 Mid CCA 72.60 / 17.20 85.40/ 27.10 Distal CCA 73.80 / 19.80 79.60/ 26.30 Prox ICA 62.40 / 26.20 49.80/ 17.60 Mid ICA 77.50 / 26.80 48.60/ 22.30 Distal ICA 44.90 / 18.80 76.90 ECA 84.70 0.90 ICA/CCA 0.80 Antegrade Vertebral Antegrade 63.90/ 24.40 cm/s 50.20/ 16.50 cm/s Tri Subclavian Tri 103.2 141.4 0 0 CONCLUSIONS Right ICA stenosis <50%. Moderate atheromatous plaque right carotid bulb/ICA. Left ICA stenosis <50%. Moderate atheromatous plaque left carotid bulb/ICA. Intimal thickening in the common carotid arteries and internal carotid arteries bilaterally. Normal antegrade Doppler flow noted in the right vertebral artery. Normal antegrade Doppler flow noted in the left vertebral artery. Alejandro Mario MD (Electronically Signed) Final Date: 11 December 2024 09:23 S
== END 2024-12-11 06:39 | disposition home or self-care (01) ==
PROVIDERS: PCP Nurse Practitioner Family; Visit Provider Internal Medicine Cardiovascular Disease
DX: E78.5 Hyperlipidemia, unspecified (principal); R06.00 Dyspnea, unspecified; R53.83 Other fatigue; I65.23 Occlusion and stenosis of bilateral carotid arteries
CPT/HCPCS: 93880

== ENCOUNTER → 2025-01-06 11:57 | Outpatient (BNVA) | payer MEDICARE, MEDICAID, SELFPAY | PROVIDERS: PCP Nurse Practitioner Family; Visit Provider Internal Medicine | DX: I10 Essential (primary) hypertension (principal); E11.65 Type 2 diabetes mellitus with hyperglycemia | CPT/HCPCS: 36415; 80053; 80061; 99214 ==

== ENCOUNTER → 2025-01-22 13:10 | Outpatient (BNVA) | payer MEDICARE, MEDICAID, SELFPAY | PROVIDERS: PCP Nurse Practitioner Family; Visit Provider Nurse Practitioner Family | DX: E11.65 Type 2 diabetes mellitus with hyperglycemia (principal) | CPT/HCPCS: 83036 ==